=== PATIENT | male | born 1970 | race Caucasian/White ===

== ENCOUNTER → 2018-01-31 16:58 | Outpatient (CLI) | payer SELFPAY ==
[2018-01-31 18:06] LABS: Hemoglobin A1c 10.7 % (4.2-6.3)
== END ==
PROVIDERS: Family Provider Family Medicine; PCP Family Medicine; Visit Provider Family Medicine
DX: E11.9 Type 2 diabetes mellitus without complications (principal)
CPT/HCPCS: 36415; 83036

== ENCOUNTER 2018-12-02 17:00 | Outpatient (RCR) | payer OTHER, SELFPAY ==
[2018-07-17 09:45] VITALS: BMI 33.6
== END 2018-12-08 23:59 ==
LOC: DC 17:00
PROVIDERS: Family Provider Family Medicine; PCP Family Medicine; Visit Provider Family Medicine
DX: E11.9 Type 2 diabetes mellitus without complications (principal); Z71.3 Dietary counseling and surveillance
CPT/HCPCS: 97802; G0108

== ENCOUNTER 2018-12-24 17:30 | Outpatient (RCR) | payer OTHER, SELFPAY ==
[2018-07-17 09:45] VITALS: BMI 33.6
== END 2019-01-08 23:59 ==
LOC: DC 17:30
PROVIDERS: Family Provider Family Medicine; PCP Family Medicine; Visit Provider Family Medicine
DX: Z71.3 Dietary counseling and surveillance (principal); E11.9 Type 2 diabetes mellitus without complications
CPT/HCPCS: 97803

== ENCOUNTER 2019-02-27 08:19 | Outpatient (RCR) | payer OTHER, SELFPAY ==
[2018-07-17 09:45] VITALS: BMI 33.6
== END 2019-02-27 23:59 | disposition home or self-care (01) ==
LOC: DC 08:19
PROVIDERS: Family Provider Family Medicine; PCP Family Medicine; Visit Provider Family Medicine
DX: Z71.3 Dietary counseling and surveillance (principal); E11.9 Type 2 diabetes mellitus without complications
CPT/HCPCS: G0108

== ENCOUNTER → 2019-07-30 09:28 | Outpatient (CLI) | payer OTHER, SELFPAY ==
[2019-07-30 09:15] VITALS: BMI 33.6
[2019-07-30 13:15] LABS: ALB/GLOB Ratio 0.9 RATIO (0.9-2.4); AST(SGOT) 13 U/L (15-37); Alanine Aminotransfer ALT/SGPT 36 U/L (16-61); Albumin, Serum 3.5 g/dL (3.2-5.0); Alkaline Phosphatase 127 U/L (45-117); Anion Gap 10 (5-15); BUN 19 mg/dL (7-18); BUN/Creat Ratio 27.2 RATIO (10-20); Calcium,Total 8.5 mg/dL (8.5-10.1); Chloride 101 mmol/L (98-107); EST Glomerular Filtration Rate 127 mL/min (>60); Est Glom Filt Rate - Afr Amer 154 mL/min (>60); Globulin 3.8 g/dL (2.2-4.2); Glucose 287 mg/dL (74-106); Potassium 4.2 mmol/L (3.5-5.1); Protein, Total 7.3 g/dL (6.4-8.2); Sodium Level 134 mmol/L (136-145)
== END ==
PROVIDERS: PCP Family Medicine; Referring Provider Family Medicine; Visit Provider Family Medicine
DX: I10 Essential (primary) hypertension (principal)
CPT/HCPCS: 36415; 80053

== ENCOUNTER → 2021-04-27 15:09 | Outpatient (CLI) | payer OTHER, SELFPAY ==
[2021-04-27 17:30] LABS: ALB/GLOB Ratio 0.9 RATIO (0.9-2.4); AST(SGOT) 14 U/L (15-37); Alanine Aminotransfer ALT/SGPT 24 U/L (16-61); Albumin, Serum 3.6 g/dL (3.2-5.0); Alkaline Phosphatase 87 U/L (45-117); Anion Gap 8 (5-15); BUN 20 mg/dL (7-18); BUN/Creat Ratio 28.1 RATIO (10-20); Calcium,Total 9.2 mg/dL (8.5-10.1); Chloride 95 mmol/L (98-107); Creatinine, Serum 0.71 mg/dL (0.70-1.30); EST Glomerular Filtration Rate 123 mL/min (>60); Est Glom Filt Rate - Afr Amer 149 mL/min (>60); Globulin 4.1 g/dL (2.2-4.2); Glucose 241 mg/dL (74-106); Potassium 4.1 mmol/L (3.5-5.1); Protein, Total 7.7 g/dL (6.4-8.2); Sodium Level 127 mmol/L (136-145)
== END ==
PROVIDERS: PCP Family Medicine; Referring Provider Family Medicine; Visit Provider Family Medicine
DX: E11.9 Type 2 diabetes mellitus without complications (principal); I10 Essential (primary) hypertension
CPT/HCPCS: 36415; 80053

== ENCOUNTER → 2023-06-14 | Outpatient (CLI) | payer OTHER, SELFPAY ==
[2023-06-14 17:18] LABS: AST(SGOT) 14 U/L (15-37); Alanine Aminotransfer ALT/SGPT 34 U/L (16-61); Albumin, Serum 3.4 g/dL (3.2-5.0); Alkaline Phosphatase 76 U/L (45-117); Anion Gap 7 (5-15); BUN 21 mg/dL (7-18); BUN/Creat Ratio 38.3 RATIO (10-20); Chloride 103 mmol/L (98-107); Cholesterol 245 mg/dL (200); Creatinine, Serum 0.55 mg/dL (0.70-1.30); EST Glomerular Filtration Rate 165 mL/min (>60); Est Glom Filt Rate - Afr Amer 200 mL/min (>60); Globulin 3.3 g/dL (2.2-4.2); Glucose 215 mg/dL (74-106); High Density Lipoprotein 32 mg/dL; Protein, Total 6.7 g/dL (6.4-8.2); Sodium Level 136 mmol/L (136-145); Triglycerides 540 mg/dL
== END | disposition home or self-care (01) ==
LOC: BIMLAB 15:52
PROVIDERS: PCP Family Medicine; Referring Provider Family Medicine; Visit Provider Family Medicine
DX: I10 Essential (primary) hypertension (principal)
CPT/HCPCS: 36415; 80053; 80061

== ENCOUNTER 2024-09-30 21:24 | Inpatient (IN) | payer OTHER, SELFPAY ==
[2024-09-30 21:25] VITALS: BP 203/96; PULSE 95; RESP 18; TEMP 36.4; O2SAT 100; BMI 34.2
[2024-09-30] MEDS: Heparin Injection (Vial) 5,000 UNIT/ML VIAL 5000 UNIT IV (21:37)
[2024-09-30] MEDS: TICAGRELOR 90 MG TABLET 180 MG PO (21:38)
--- NOTE | 2024-09-30 21:41 | EKG12_ITS ---
Test Reason : Blood Pressure : */* mmHG Vent. Rate : 60 BPM Atrial Rate : 60 BPM P-R Int : 180 ms QRS Dur : 106 ms QT Int : 418 ms P-R-T Axes : 34 -46 49 degrees QTcB Int : 418 ms Poor data quality, interpretation may be adversely affected Normal sinus rhythm Left anterior fascicular block Minimal voltage criteria for LVH, may be normal variant ( Trimble product ) Inferior infarct , age undetermined Possible Anterior infarct , age undetermined Abnormal ECG When compared with ECG of 30-Sep-2024 21:33, MANUAL COMPARISON REQUIRED DATA IS UNCONFIRMED Confirmed by AYAD SEN, ELIZABET ([id number]), continuity editor RUBY LASSITER ([id number]) on 10/01/2024 2:06:30 PM Referred By: Malcolm Wray Confirmed By: ELIZABET LION MD
--- NOTE | 2024-09-30 21:42 | RAD_ITS ---
PROCEDURE: CHEST 1 VIEW (PORTABLE) 09/30/2024 REASON FOR EXAM: CHEST PAIN TECHNIQUE: Frontal view of the chest. FINDINGS: Hardware: None Heart: Cardiac and mediastinal contours are stable. Lungs: The lungs are clear. Bones: The bones are unremarkable. Other: RAD/Chest 1 View (Portable) IMPRESSION: No Acute Findings. Reading Location: [id number]
[2024-09-30 21:44] VITALS: O2SAT 2
--- NOTE | 2024-09-30 21:44 | ED.VIS.CHEST ---
HPI History of Present Illness Chief Complaint: Chest Pain Informant: patient and family Onset/Context/Timing Onset: Today and Hours Activity at onset: gradual Timing: Continuous Quality: Positive for Heaviness, Pain and Pressure Location: Substernal and Left Chest Current Severity: Moderate Maximum Severity: Moderate Worsened By: Nothing Relieved By: Nothing Associated Symptoms: Positive for Nausea, Diaphoresis and Dyspnea; Negative for Vomiting, Cough, Fever, Lightheadedness, Acid Reflux or Palpitations Narrative Narrative: 84-year-old male history of diabetes hypertension. No cardiac history. No prior cardiac catheterization. The last 2 days he has had some right arm pain. Today around 1:00 he got midsternal and left-sided chest pain. He became clammy. He had some mild nausea and mild shortness of breath. Did not come until tonight. He denies any recent exertional chest pain. Has had some recent mild exertional dyspnea. He is a non-smoker. He is on no blood thinners. He denies recent illness. Prior Similar Symptoms: No Recent Illness/Hospitalization: No CVD Risk Factors: Positive for Hypertension and Diabetes PE Risk Factors: Negative for Recent Travel/Surgery, Recent Immobilization, Prior DVT or PE, Cancer or OCP + Smoking + >/=35 TAD Risk Factors: Negative for Marfan's Syndrome [facility] Medical History (Updated 09/30/24 @ 23:[address] Malcolm Wray MD) Hypertension Diabetes Home Medications ?Medication ?Instructions ?Recorded ?Last Taken ?Type fosinopril 10 mg tablet 10 mg PO DAILY #90 tabs 04/08/24 Unknown Rx glimepiride 2 mg tablet 2 mg PO DAILY #90 tabs 04/08/24 Unknown Rx metformin 500 mg tablet See Rx Instructions .Route 04/08/24 Unknown Rx .COMPLEX #180 tabs pioglitazone 30 mg tablet 30 mg PO DAILY #90 tabs 04/08/24 Unknown Rx Allergy/AdvReac Type Severity Reaction Status Date / Time No Known Allergies Allergy Verified 09/30/24 21:25 Family History Mother Diabetes Father Heart disease Social History Smoking Status: Current every day smoker tobacco type: smokeless tobacco Smokeless tobacco user: chewing tobacco how long ago did patient quit smokin07/25/17 alcohol intake: current alcohol intake frequency: holidays/special occasions only Alcohol type: beer substance use type: does not use what type of physical activity do you participate in: walking frequency: 1-2 times per week ROS ROS ED ROS Narrative Chest pain today. Nausea and diaphoresis. No recent illness. Mild recent exertional dyspnea. Constitutional Constitutional ED: Denies chills or fever(s) Eyes Eyes: Reports none ENT ENT ED: Denies ear pain Cardiovascular Cardiovascular: Reports as per HPI and chest pain; Denies palpitations or racing heartbeat Respiratory/Chest Respiratory/Chest: Reports dyspnea Gastrointestinal Gastrointestinal: Reports nausea; Denies abdominal pain, constipation, diarrhea, melena or vomiting Genitourinary Genitourinary ED: Denies dysuria or hematuria Musculoskeletal Musculoskeletal: Denies arthralgias Integumentary Denies abscess Neurologic Neurologic: Denies headache(s) Psychiatric Psychiatric: Denies anxiety Endocrine Endocrinology: Denies cold intolerance Hematologic/Lymphatic Hematologic/Lymphatic: Denies easy bleeding, easy bruising or lymphadenopathy Allergic/Immunologic Allergic/Immunologic ED: Denies mouth swelling, tongue swelling or urticaria EXAM Physical Exam Narrative Exam Narrative: 84-year-old male sitting upright in bed. Initial blood pressure 2-3 of 96 pulse oximeter percent on room air. HEENT exam pupils round react to light. Moist mucous membranes. Neck nontender JVD. No lymphadenopathy. Lungs clear to auscultation bilaterally. Heart regular rate and rhythm rate about 95 no murmur. Chest wall nontender. Skin clammy. Abdomen soft, nondistended normal bowel sounds without peritoneal signs. Ventral hernia. Moving all 4 extremities. Nontender no edema. No cords. Neurologically is awake and alert no focal motor deficits. Answering questions following commands. Moving all 4 extremities. Back nontender. Exam is consistent with acute TN. As is his EKG. STEMI team was called. Const Vital Signs: 09/30/24 21:25 09/30/24 21:30 09/30/24 21:44 Temperature 97.6 F L Temperature Source Temporal Pulse Rate 95 Respiratory Rate 18 Respiratory Effort Normal Blood Pressure 203/96 H Blood Pressure Mean 131 Pulse Ox 100 2 Oxygen Delivery Method Room Air Nasal Cannula 09/30/24 21:51 09/30/24 21:57 Temperature 97.6 F L Temperature Source Pulse Rate 76 Respiratory Rate 20 H 19 H Respiratory Effort Blood Pressure 180/94 H 180/94 H Blood Pressure Mean 122 Pulse Ox 95 Oxygen Delivery Method Positive well nourished and well developed; Negative for cachectic, contractures or unkempt General Appearance ED: well developed and pallor; Negative for unkempt, cachectic, contractures or NAD Nutritional Appearance: Negative for cachectic HEENT Reports moist mucous membranes normocephalic and atraumatic Eyes PERRL and EOMs intact bilaterally General Eye ED: Yes pale conjunctiva Neck no lymphadenopathy and no JVD General: Negative for tenderness Chest Wall inspection of chest normal and palpation of chest normal Resp normal respiratory effort and clear to auscultation bilaterally Cardio regular rate, regular rhythm, S1 normal heart sound, S2 normal heart sound and no murmurs Peripheral Pulses: pulses 2+ throughout GI normal to inspection, nondistended, normoactive bowel sounds, soft to palpation, non-tender, non-distended and no masses Back/Spine no CVA tenderness and no thoracic nor lumbar tenderness Extremity normal to inspection General Extremety ED: Negative for edema, pulses abnormal or tenderness General Extremity: Negative for edema or pulses abnormal Neuro oriented x3, CN's II-XII intact bilaterally and no sensory deficits noted Sensorium / Orientation: awake, alert, oriented to person, oriented to place and oriented to time; Negative for confused, lethargic or stuporous Motor Exam: strength 5/5 throughout Psych mental status grossly normal Appearance: Negative for unkempt Attitude: No agitated Mood & Affect: Negative for depressed, anxious or tearful Skin no rashes or lesions noted and no wounds Skin Narrative: Diaphoretic General Skin Exam: pallor; Negative for jaundice Rashes: No rashes noted Trauma: Negative for abrasion or laceration Heart Score History: Highly Suspicious ECG: Significant ST-Depression (Significant ST elevation.) Age: >45 - <65 years Risk Factors: 1 or 2 Risk Factors Score: 6 MDM MDM MDM Narrative Medical decision making narrative: 54-year-old diabetic hypertensive male without any cardiac history. Presents with chest pain since 1:00 today it has been 8-1/2 hours of chest pain. He has an acute inferolateral TN with ST elevation in 2 3 aVF and V3 [address] depression in lead I. STEMI team was called immediately as she is I saw the EKG. He will be given a heparin bolus of 5000, Brilinta 180 p.o. and 4 baby aspirin. I have already spoken to the STEMI restaurant kitchen manager on-call Dr. Wray. Soon as the Pharmaceutical Sales Representative is ready the patient to be taken there. I have already informed him and the family of our diagnosis. Repeat exam patient is doing well at 10 PM. Pharmaceutical Sales Representative was ready and they took him down to the Pharmaceutical Sales Representative. He is awake alert and talking. His vital signs are stable. He is stating he is feeling improved. He was given Zofran for nausea I ordered the morphine but he did not want to take it at this time. He did receive aspirin p.o., Brilinta and IV heparin bolus. History & Record Review Discussion w/independent historian: Patient and Family Lab Data Attestation: I reviewed the patient's lab results. Lab results narrative: CBC shows a white count 13.6. H&H 15 and 42. Platelets 260. PT/INR of 12 and 0.9. PTT is 23. BMP showed a sodium 130. Gap 13. Normal BUN and creatinine of 14 and 1. Glucose elevated 342 he is diabetic. Troponin elevated at 23. Labs: Laboratory Results - last 24 hr 09/30/24 21:30 WBC 13.6 H RBC 4.87 Hgb 15.2 Hct 42.8 MCV 87.9 MCH 31.2 MCHC 35.5 RDW Std Deviation 38.4 RDW Coeff of Sue 11.9 Plt Count 260 MPV 9.3 Immature Gran % (Auto) 0.400 Neut % (Auto) 77.7 H Lymph % (Auto) 13.7 L [place] % (Auto) 7.8 Eos % (Auto) 0.1 Baso % (Auto) 0.3 Absolute Neuts (auto) 10.6 H Absolute Lymphs (auto) 1.86 Nucleated RBC % 0 PT 12.4 INR 0.9 APTT 23.4 L Sodium 130 L Potassium 4.6 Chloride 95 L Carbon Dioxide 21.8 Anion Gap 13 BUN 14 Creatinine 1.08 Estim Creat Clear Calc 86.65 Est GFR (MDRD) Non-Af 81 BUN/Creatinine Ratio 13.0 Glucose 342 H Calcium 9.2 Troponin T High Sens 23 H Radiography Chest X-Ray - ED: 1 View, Read by ED Physician, Heart, Lungs, Mediastinum, Bony Structures, No Acute Disease and Chronic Changes Diagnostic Testing: Clinical Impression(s) from Imaging Studies Chest X-Ray 09/30/24 21:42 IMPRESSION: No Acute Findings. Reading Location: [id number] Chest x-ray, portable, single view interpreted by myself shows normal cardiac silhouette. Normal mediastinum and aortic knob. Normal lung ram. Chronic changes. No acute process. Rhythm Strip Rhythm Strip: Sinus Rhythm Rate: 88 Ectopy: None EKG Initial EKG: Attestation: I personally reviewed and interpreted this EKG as follows: Interpretation: Sinus Rhythm, S-T Elevation and S-T Depression Comments: Acute inferolateral TN with ST elevation in 2 3 aVF and V4 through V6 with ST depression in lead I. Prior EKG tracings: not available for review Critical Care Time Critical Care Time: Yes Critical care time (excluding procedures): 30-74 minutes, Including time spent:, Discussing w/Patient &/or Family/Head Still Operator, Discussing w/Consultants, Arranging Admission or Transfer, Performing Direct Patient Care at Bedside and - (31 minutes while waiting the patient to go to Pharmaceutical Sales Representative.) Discharge Plan Dx/Rx/DC Orders Clinical Impression: Chest pain, Acute inferior myocardial infarction, History of diabetes mellitus, History of hypertension Disposition Disposition: [facility] Discharge Date/Time: 09/30/24 22:15
[2024-09-30] MEDS: Ondansetron 4 MG/2 ML Vial IV (21:46)
[2024-09-30] MEDS: Aspirin 81 MG TAB.CHEW 324 MG PO (21:46)
[2024-09-30 21:51] VITALS: BP 180/94; PULSE 66; RESP 20; O2SAT 98
[2024-09-30 21:54] LABS: Absolute Lymphocyte Count 1.86 X10^3/uL (0.83-4.51); Absolute Neutrophil Count 10.6 X10^3/uL (2.0-7.7); Basophil# 0.04 X10^3/uL; Basophil% 0.3 % (0-1); Eosinophil# 0.02 X10^3/uL; Eosinophils% 0.1 % (0-5); Hematocrit 42.8 % (40-54); Hemoglobin 15.2 g/dL (13.0-16.5); Lymphocyte # 1.86 X10^3/ul (0.83-4.51); Lymphocyte % 13.7 % (19-41); Mean Corp Hgb Conc 35.5 g/dL (32-36); Mean Corpuscular Hgb 31.2 pg (27.0-32.0); Mean Corpuscular Volume 87.9 fL (80-94); Mean Platelet Vol. 9.3 fl (6.2-12.0); Monocyte# 1.06 X10^3/uL; Monocyte% 7.8 % (0-10); NRBC Flagged by Analyzer 0 % (0-5); Neutrophil # 10.55 X10^3/uL (2.7-7.7); Neutrophil % 77.7 % (47-70); Platelet Count 260 K/mm3 (150-450); RBC Distribution Width CV 11.9 % (11.6-14.6); RBC Distribution Width SD 38.4 fl (35.1-43.9); Red Blood Count 4.87 M/mm3 (4.6-6.2); White Blood Count 13.6 K/mm3 (4.4-11.0)
--- NOTE | 2024-09-30 21:56 | PCM.HP.STD ---
HPI - General General Date of Admission: 09/30/24 Date of Service: 09/30/24 Chief Complaint: Chest Pain with Inferior STEMI. HPI Narrative RADHA NEWBERRY, is a 54 M with a past medical history of essential hypertension; on fosinopril, obesity; with BMI of 34.2 this admission, DM-2; of unknown control on metformin and glimepiride and history of smokeless tobacco abuse (quit smoking 2017) who presents to [facility] ER complaining of chest pain with code STEMI called en route. Mr. Newberry reports his symptoms began approximately 2 days prior to admission with intermittent Right arm pain and then earlier today around 1:00 PM he experienced the gradual-onset of progressively worsening chest pain that was midsternal, radiating to the Left-side, heavy, pressure-like, moderate and was made better or worse by nothing. He also admits to associated diaphoresis with shortness of breath and nausea with recent mild exertional dyspnea so he finally decided to come in this evening for further evaluation and treatment after ~8.5 hours of chest pain and other worsening symptoms. He denies similar previous episodes or any known history of CAD. In the ER he was confirmed to have Inferior Wall ST elevation IN with configuration engineer emergently called for C with an initial blood pressure of 203/96 mmHg present on admission. He was emergently treated with IV heparin (bolus and drip), Brilinta 180 mg orally once in 4 BASA with STEPHANIA to RCA placed by Dr. Wray of [facility] whose help is greatly appreciated. He was then admitted to the ICU for ongoing care for stay that is expected to extend beyond 2 midnights. [facility] Medical History (Updated 10/01/24 @ 05:[address] Polo Abbott, DO) Hypertension Diabetes Home Medications ?Medication ?Instructions ?Recorded ?Last Taken ?Type fosinopril 10 mg tablet 10 mg PO DAILY #90 tabs 04/08/24 Unknown Rx glimepiride 2 mg tablet 2 mg PO DAILY #90 tabs 04/08/24 Unknown Rx metformin 500 mg tablet See Rx Instructions .Route 04/08/24 Unknown Rx .COMPLEX #180 tabs pioglitazone 30 mg tablet 30 mg PO DAILY #90 tabs 04/08/24 Unknown Rx Allergy/AdvReac Type Severity Reaction Status Date / Time No Known Allergies Allergy Verified 04/22/25 21:25 Family History Mother Diabetes Father Heart disease Social History Smoking Status: Former smoker Smokeless tobacco user: chewing tobacco how long ago did patient quit smokin07/25/17 alcohol intake: current alcohol intake frequency: holidays/special occasions only Alcohol type: beer substance use type: does not use what type of physical activity do you participate in: walking frequency: 1-2 times per week ROS ROS Narrative Review of Systems: Constitutional: Patient denies fever or chills. Eyes: Patient denies change in vision or discharge from eyes. ENT: Patient denies runny nose, sore throat or ear pain. Resp: Patient admits to recent mild dyspnea on exertion progressing dyspnea at rest with ACS. CV: Patient admits to chest pain as noted in HPI but he denies palpitations, heart racing or lower extremity edema. GI: Patient admits to nausea but he denies vomiting, diarrhea, constipation or abdominal pain. : Patient denies dysuria, hematuria or urinary frequency. MSK: Patient denies arthralgias or myalgias. Skin: Patient denies rash, abscess, wounds or jaundice. Psych: Patient denies symptoms of uncontrolled depression or anxiety. Neuro: Patient denies headache, paresthesias or focal neurologic deficits. Allergy: Patient denies lip swelling, tongue swelling or urticaria. Hematology: Patient denies easy bleeding or easy bruisability. Endocrinology: Patient denies polyuria, polydipsia, polyphagia or heat/cold intolerance. 14 point ROS otherwise negative except for positives noted above in HPI. Vital Signs Vital Signs Vital Signs: 09/30/24 21:25 09/30/24 21:30 09/30/24 21:44 Temperature 97.6 F L Temperature Source Temporal Pulse Rate 95 Respiratory Rate 18 Respiratory Effort Normal Blood Pressure 203/96 H Blood Pressure Mean 131 Pulse Ox 100 2 Oxygen Delivery Method Room Air Nasal Cannula 09/30/24 21:51 Temperature Temperature Source Pulse Rate Respiratory Rate 20 H Respiratory Effort Blood Pressure 180/94 H Blood Pressure Mean Pulse Ox Oxygen Delivery Method Weight Weight: 218 lb 4.8 oz Body Mass Index (BMI) 34.2 Physical Exam Const alert and oriented x3 Constitutional Narrative: Obese with patient noted to be clammy and in mild distress. General Appearance: cooperative HEENT normocephalic, head/scalp atraumatic, hearing grossly normal bilaterally and moist oral mucous membranes Eyes PERRL, EOMs intact bilaterally and conjunctivae normal Neck no lymphadenopathy, supple and no JVD Resp normal respiratory effort, no retractions, no use of accessory muscles and clear to auscultation bilaterally Cardio regular rate and regular rhythm GI normal to inspection, nondistended, normoactive bowel sounds, soft to palpation, non-tender and non-distended GI Narrative: Obese. Extremity normal to inspection, full ROM and no clubbing, cyanosis or edema Skin Skin Narrative: Patient has no evidence of rash, abscess, wounds or jaundice. Neuro oriented x3, CN's II-XII intact bilaterally, moves all extremities and no focal motor deficits Sensorium / Orientation: awake, alert, oriented to person, oriented to place and oriented to time Speech: speech normal Psych affect normal Results Medical Records Data Attestation: I reviewed the patient's medical records Lab / Micro Data Attestation: I reviewed the patient's lab results. 09/30/24 21:30 09/30/24 21:30 Labs: Laboratory Results - last 24 hr 09/30/24 21:30: WBC 13.6 H, RBC 4.87, Hgb 15.2, Hct 42.8, MCV 87.9, MCH 31.2, MCHC 35.5, RDW Std Deviation 38.4, RDW Coeff of Sue 11.9, Plt Count 260, MPV 9.3, Immature Gran % (Auto) 0.400, Neut % (Auto) 77.7 H, Lymph % (Auto) 13.7 L, [place] % (Auto) 7.8, Eos % (Auto) 0.1, Baso % (Auto) 0.3, Absolute Neuts (auto) 10.6 H, Absolute Lymphs (auto) 1.86, Nucleated RBC % 0 Rhythm Strip Rhythm Strip: Sinus Rhythm Rate: 88 Ectopy: None Assessment & Plan Assessment/Plan (1) Acute inferior myocardial infarction: (2) Essential hypertension: (3) Obesity (BMI 30.0-34.9): (4) Diabetes mellitus, type 2: QUALIFIERS: Diabetes mellitus terminal operations manager insulin use: without terminal operations manager use Diabetes mellitus complication status: with circulatory complication Diabetes mellitus complication detail: with other circulatory complications Qualified Code(s): E11.59 - Type 2 diabetes mellitus with other circulatory complications (5) Tobacco abuse: PLAN: Plan 1. Inferior Wall ST elevation IN; s/p RCA stent placed and emergent LHC - Admit to ICU. Continue current medications as recommended by cardiology. Give acetaminophen as needed for [id number] (level 1-5/10) pain or fever. Give morphine IV as needed for severe (level 6-10/10) pain. Finally, patient was sternly warned not to wait for prolonged a period of time before seeking medical attention in case his symptoms recur. 2. Essential Hypertension; on fosinopril complicating #1 - Patient will be maintained on regimen recommended by configuration engineer with carvedilol 3.125 mg p.o. twice daily plus Zestril 5 mg p.o. daily in addition to spironolactone 12.5 mg daily. 3. Obesity; with BMI of 34.2 this admission adding to the burden of disease outlined #1 & #2 - Weight loss was recommended. Check TSH. This complicates his case and may hamper recovery. 4. DM-2; of unknown control on metformin and glimepiride adding to the medical complexity of #1 - #3 - ADA/cardiac diet. FSBS q. AC/HS plus [id number] sliding scale insulin. Check hemoglobin A1c to objectively evaluate quality of diabetic control. 5. History of smokeless tobacco abuse (quit smoking 2017) - Tobacco Cessation will be strongly encouraged. 6. DVT prophylaxis - Patient was treated with IV heparin. We will place SCD's. Alternative agent will need to started at in the a.m. Total time: Approximately (but not less than) 75 minutes. Charges/Coding Visit Charges Inpatient E&M: 82452 Init Hosp L3
[2024-09-30 21:57] VITALS: BP 180/94; PULSE 76; RESP 19; TEMP 36.4; O2SAT 95
[2024-09-30 22:00] LABS: International Normalized Ratio 0.9; Prothrombin Time (Protime)PT. 12.4 SECONDS (11.7-14.9)
[2024-09-30 22:01] LABS: Partial Thromboplast Time 23.4 Seconds (24.1-36.2)
[2024-09-30 22:18] LABS: Anion Gap 13 (5-15); BUN 14 mg/dL (4-19); Calcium,Total 9.2 mg/dL (7.6-11.0); Carbon Dioxide 21.8 mmol/L (21.0-32.0); Chloride 95 mmol/L (98-108); Creatinine, Serum 1.08 mg/dL (0.70-1.20); EST Glomerular Filtration Rate 81 (>60); Estimated Creatinine Clearance 86.65 ml/min (50-250); Glucose 342 mg/dL (70-99); Potassium 4.6 mmol/L (3.3-5.1); Sodium Level 130 mmol/L (133-145); Troponin T High Sensitivity 23 ng/L (<=22)
--- NOTE | 2024-09-30 22:21 | CM.ED ---
Social work Reason for referral: STEMI alert This SW responded to STEMI alert called and provided support patient's son, Wilmer, and Wilmer's girlfriend. Patient was actively having a heart attack and was prepared for the central lab technician while SW supported family in the hallway. Active listening and supportive presence provided. Prior to going to the central lab technician, patient refused morphine for pain and patient asked nursing if patient was going to work tomorrow; nursing reminded patient that patient was having a heart attack and would not be going to work tomorrow. Patient expressed understanding. Plan: admission to acute; RNCM/SW team to help with discharge planning needs that may arise. Noemi Cantu, PUPIL PERSONNEL SERVICES DIRECTOR, BEHAVIORAL HEALTH RN
--- NOTE | 2024-09-30 23:02 | PCM.CONS.C ---
Assessment & Plan Assessment/Plan (1) Acute inferior myocardial infarction: PLAN: Patient was taken emergently to the cardiac catheterization lab. Coronary angiography revealed total occlusion of the proximal right coronary artery. Successful revascularization was performed with aspiration thrombectomy, balloon angioplasty and placement of a drug-eluting stent. Excellent results were noted. Continue aspirin lifelong. Clopidogrel for at least 6 months. (2) Coronary artery disease: PLAN: See #1 above. Continue aspirin and clopidogrel. Patient is also noted to have chronic total occlusion of his obtuse marginal branch that is filling retrogradely via home collaterals. For medical treatment. Beta-blockers. Risk factor modification. Statins. (3) Left ventricular systolic dysfunction (LVSD): PLAN: LVEF approximately 40% with posterior hypokinesis secondary to #1 above. Beta-blockers. ACEI. SGLT2 inhibitors. Check echocardiogram. (4) Hypertension: QUALIFIERS: Hypertension type: essential hypertension Qualified Code(s): I10 - Essential (primary) hypertension PLAN: ACEI and beta-blockers. (5) Diabetes: QUALIFIERS: Diabetes mellitus type: type 2 Diabetes mellitus retirement insulin use: without intermodal dispatcher use PLAN: As per internal medicine. HPI Consult Data Date of Consult: 09/30/24 HPI Narrative Reason for Consultation: Inferior STEMI HPI Narrative: 54-year-old gentleman with past medical history significant for hypertension and diabetes mellitus. He presented to the emergency room with complaints of acute onset chest pain that started about 9 hours prior to presentation. He described mild shortness of breath with it along with some nausea. In the emergency room, an ECG was done. It showed changes consistent with acute inferior lateral myocardial infarction. Subsequently a STEMI alert was called. Denies any prior history of heart disease. [facility] Medical History (Updated 09/30/24 @ 23:[address] Malcolm Wray MD) Hypertension Diabetes Home Medications ?Medication ?Instructions ?Recorded ?Last Taken ?Type fosinopril 10 mg tablet 10 mg PO DAILY #90 tabs 04/08/24 Unknown Rx glimepiride 2 mg tablet 2 mg PO DAILY #90 tabs 04/08/24 Unknown Rx metformin 500 mg tablet See Rx Instructions .Route 04/08/24 Unknown Rx .COMPLEX #180 tabs pioglitazone 30 mg tablet 30 mg PO DAILY #90 tabs 04/08/24 Unknown Rx Allergy/AdvReac Type Severity Reaction Status Date / Time No Known Allergies Allergy Verified 09/30/24 21:25 Family History Mother Diabetes Father Heart disease Social History Smoking Status: Current every day smoker tobacco type: smokeless tobacco Smokeless tobacco user: chewing tobacco how long ago did patient quit smokin07/25/17 alcohol intake: current alcohol intake frequency: holidays/special occasions only Alcohol type: beer substance use type: does not use what type of physical activity do you participate in: walking frequency: 1-2 times per week Physical Exam Narrative Mildly anxious. Heart sounds 1 and 2 noted. Chest clear to auscultation bilaterally. Alert oriented x 3. Trace bilateral ankle edema noted. Risk Stratification Risk Stratification Applicable: No Objective Data Vital Signs: Vital Signs Temp Pulse Resp BP Pulse Ox O2 Del Method 97.6 F L 76 19 H 180/94 H 95 Nasal Cannula 09/30/24 21:57 09/30/24 21:57 09/30/24 21:57 09/30/24 21:57 09/30/24 21:57 09/30/24 21:44 Oxygen Delivery Method Nasal Cannula Weight: 218 lb 4.8 oz Body Mass Index (BMI) 34.2 Lab / Micro Data 09/30/24 21:30 09/30/24 21:30 Labs: Laboratory Results - last 24 hr 09/30/24 21:30: WBC 13.6 H, RBC 4.87, Hgb 15.2, Hct 42.8, MCV 87.9, MCH 31.2, MCHC 35.5, RDW Std Deviation 38.4, RDW Coeff of Sue 11.9, Plt Count 260, MPV 9.3, Immature Gran % (Auto) 0.400, Neut % (Auto) 77.7 H, Lymph % (Auto) 13.7 L, [place] % (Auto) 7.8, Eos % (Auto) 0.1, Baso % (Auto) 0.3, Absolute Neuts (auto) 10.6 H, Absolute Lymphs (auto) 1.86, Nucleated RBC % 0, PT 12.4, INR 0.9, APTT 23.4 L, Sodium 130 L, Potassium 4.6, Chloride 95 L, Carbon Dioxide 21.8, Anion Gap 13, BUN 14, Creatinine 1.08, Estim Creat Clear Calc 86.65, Est GFR (MDRD) Non-Af 81, BUN/Creatinine Ratio 13.0, Glucose 342 H, Calcium 9.2, Troponin T High Sens 23 H Rhythm Strip Rhythm Strip: Sinus Rhythm Rate: 88 Ectopy: None Cardiology Labs/Tests 09/30/24 21:30: WBC 13.6 H, RBC 4.87, Hgb 15.2, Hct 42.8, MCV 87.9, MCH 31.2, MCHC 35.5, Plt Count 260, MPV 9.3, Immature Gran % (Auto) 0.400, Neut % (Auto) 77.7 H, Lymph % (Auto) 13.7 L, [place] % (Auto) 7.8, Eos % (Auto) 0.1, Baso % (Auto) 0.3, Absolute Neuts (auto) 10.6 H, Nucleated RBC % 0, PT 12.4, INR 0.9, APTT 23.4 L, Sodium 130 L, Potassium 4.6, Chloride 95 L, Carbon Dioxide 21.8, Anion Gap 13, BUN 14, Creatinine 1.08, Est GFR (MDRD) Non-Af 81, BUN/Creatinine Ratio 13.0, Glucose 342 H, Calcium 9.2 Rhythm: EKG: Sinus rhythm with ST changes consistent with acute inferior myocardial infarction ECHO: Stress Test: Cardiac Cath: PCI: CT Surgery: Holter monitor: EPS: PPM: CXR: Chest CT Scan: Radiography Diagnostic Testing: Radiology Impression Chest X-Ray 09/30/24 21:42 IMPRESSION: No Acute Findings. Reading Location: [id number]
--- NOTE | 2024-09-30 23:09 | ECHOCS_ITS ---
Reason For Study Reason For Study: Chest Pain Procedure This was a 2D Doppler, Color Flow transthoracic echocardiogram. The study was technically difficult. Contrast injection was performed. Exam performed portable in ICU/CCU. Left Ventricle Normal size and thickness. Mild inferior hypokinesis. Overall LVEF estimated at 60%. Stage I diastolic dysfunction. Right Ventricle Normal right ventricle. Atria The left and right atria are normal. Mitral Valve Trivial mitral valve insufficiency. Tricuspid Valve Mild tricuspid valve insufficiency. Right ventricular systolic pressure estimated to be 38 mmHg. Aortic Valve Trisinus/trileaflet aortic valve. Pulmonic Valve The pulmonic valve is not well visualized. Great Vessels Normal sized aortic root. Pericardium/Pleural No pericardial effusion. Medication Diluted definity 1ml given slow IV push to enhance endocardial definition. MMode/2D Measurements & Calculations LVIDd: 4.7 cm IVSd: 0.99 cm Ao root diam: 3.0 cm LVIDs: 3.0 cm LVPWd: 1.0 cm RVDd: 3.8 cm FS: 37.6 % LAV(MOD-bp): 49.3 ml LVAd ap4: 34.3 cm2 SV(MOD-sp4): 64.7 ml LAV(MOD-bp) Indexed: 23.8 ml/m2 LVLd ap4: 8.9 cm SI(MOD-sp4): 31.2 ml/m2 LAV(MOD-sp2): 44.9 ml EDV(MOD-sp4): 108.1 ml LAV(MOD-sp4): 52.6 ml EDV(sp4-el): 112.1 ml LVAs ap4: 19.3 cm2 LVLs ap4: 6.9 cm ESV(MOD-sp4): 43.4 ml ESV(sp4-el): 45.5 ml EF(MOD-sp4): 59.8 % EF(sp4-el): 59.4 % SV(sp4-el): 66.5 ml LA A4 area: 18.9 cm2 LA dimension(2D): 3.8 cm RA A4 area: 16.6 cm2 TAPSE: 1.5 cm Time Measurements MV dec time: 0.17 sec Doppler Measurements & Calculations MV E max chan: 89.0 cm/sec Lat Peak E' Chan: 8.3 cm/sec Med Peak E' Chan: 8.1 cm/sec MV A max chan: 94.9 cm/sec E/E' lat: 10.7 E/E' med: 11.0 MV E/A: 0.94 MV V2 max: 124.2 cm/sec MV P1/2t max chan: 128.6 cm/sec Ao V2 max: 172.4 cm/sec MV max P.2 mmHg MV P1/2t: 70.9 msec Ao max P.9 mmHg MV V2 mean: 59.6 cm/sec MV dec slope: 531.3 cm/sec2 Ao V2 mean: 117.5 cm/sec MV mean P.8 mmHg MVA(P1/2t): 3.1 cm2 Ao mean P.4 mmHg MV V2 VTI: 40.3 cm Ao V2 VTI: 36.2 cm AV (velocity ratio): 0.86 LV V1 max: 143.9 cm/sec PA V2 max: 92.4 cm/sec TR max chan: 239.8 cm/sec LV V1 max P.3 mmHg PA V2 mean: 70.5 cm/sec TR max P.0 mmHg LV V1 mean P.5 mmHg LV V1 mean: 98.3 cm/sec LV V1 VTI: 31.1 cm ECHO/Echo Complete W/ Contrast Interpretation Summary Mild inferior hypokinesis. Overall LVEF estimated at 60%. Stage I diastolic dys function Right ventricular systolic pressure estimated to be 38 mmHg. Ordering Physician: Malcolm Wray Referring Physician: Malcolm Wray Performed By: Jean-Paul Ibrahim RCS
[2024-09-30 23:29] LABS: ACT Activated Clotting Time 187 sec (74-137)
[2024-09-30 23:29] LABS: ACT Activated Clotting Time 256 sec (74-137)
--- NOTE | 2024-09-30 23:34 | CL.I_ITS ---
Patient Name: RADHA LY Study Date: 09/30/2024 Performing: Malcolm Wray MD Ht: 67 inches 170.18 cm : 1970 Wt: 218.6 lbs 99.02 kg Age: 54 Gender: male BSA: 2.1 PROCEDURE(S) PERFORMED DC01-(55303)LHC/COR/LV IC16-(35690/[id number])AMI, STEPHANIA OR PTCA, ARTERY/GRAFT, SINGLE VESSEL CLINICAL PROFILE AND CO-MORBIDITIES Indications: ACS <= 24 hrs Heart Failure: None CAD Presentations: STEMI. Symptom onset Date/Time: 09/30/2024 12:00:00 Time Estimated CONCLUSIONS 100% Prox RCA SPRAY GUN OPERATOR Om1, filling retrogradely via collaterals 40% Prox LAD, 60% Prox D1 LVEF 45% 3.0x34 mm RECOMMENDATIONS ASA Indefinitley P2Y12 inhibitors for atleast 6 months DESCRIPTION OF PROCEDURE The patient arrived to the procedure lab. The risks and benefits of the procedure as well as a full description of our services here and lack of surgical backup were fully explained to the patient and/or their significant other prior to the catheterization. The Timeout was completed, verifying the correct patient and procedure. The patient's procedural site was prepped and draped in the usual fashion. Local anesthetic was given subcutaneously to right radial region with Lidocaine 2%. Using a modified Seldinger technique, arterial access was obtained via the right radial artery, a 6Fr sheath was inserted.. Left Coronary Artery selective angiography was performed in multiple views using a 5 Fr. 4.0 Troy catheter. Right Coronary Artery selective angiography was then performed in multiple views using a 5 Fr. 4.0 Troy catheter. Left Ventriculography was performed in DUARTE projection using a 5 Fr. Pigtail catheter. LV to AO pullback pressures were then recorded jr 4 Guide catheter was inserted and engaged into the RCA. runthrough Guide wire was advanced to the RCA. Balloon catheter was advanced across lesion in the right coronary, proximal. PTCA balloon inflated at 6 atms for 13 secs. fernando 3.0 x 34 Drug Eluting stent was advanced across the lesion in the right coronary, mid. Angiogram performed post stent deployment. nc emerge 3.0 x 30 Balloon catheter was inserted post stent. Angiogram performed post balloon dilatation. CORONARY ANGIOGRAPHY DOMINANCE: Right Dominant LEFT HEART ASSESSMENT Left Ventricular Ejection Fraction: by LV Gram 45 % LVEDP: 31 mmHg Aortic Valve Mean Gradient: [id number] LEFT MAIN: Angiographically normal LEFT ANTERIOR DESCENDING ARTERY: LAD: Tubular 40% Proximal lesion in LAD DIAGONAL 1: Tubular 60% Ostial lesion in DIAG1 OM 1: Diffuse 100% Ostial lesion in MARG1 OM 2: Diffuse 100% Ostial lesion in MARG1 RIGHT CORONARY ARTERY: RCA: Thrombus 100% Proximal lesion in RCA COLLATERAL FLOW: Collateral flow from DIAG1 to MARG1 INTERVENTION INFORMATION LESION SITE: RCA (Mid) Lesion Complexity: High/C, thrombus present: Yes, lesion length: 32 mm, culprit lesion: Yes, In-stent restenosis: No, chronic total occlusion: No Pre Stenosis: 100% % Pre intervention PARISH flow: 0 PROCEDURE: Drug Eluting Stent with pre and post dilatation, Thrombectomy Post Stenosis: 0% % Post intervention PARISH flow: 3 Lesion Devices: Terumo .014 180cm Runthrough Extra Floppy straight Cordis 6 Fr JR4 100cm Guide Catheter Sumit Sci EMERGE MR 2.50x12 BALLOON Penumbra Penumbra engine canister Penumbra Indigo Penumbra CAT Rx 140cm large lumen Medtronic 3.0 x 34 FERNANDO FRONTIER STEPHANIA Sumit Sci NC EMERGE MR 3.00x30 BALLOON COMPLICATIONS No Complications PROCEDURE MEDICATIONS Fentanyl 50 mcg IV Fentanyl 50 mcg IV Oxygen: 2 L/min via nasal cannula Atropine 1mg/10ml .5 amp @ 09/30/2024 22:33:14 Heparin 7000 unit(s) IV 09/30/2024 22:24:32 Heparin 6000 unit(s) IV 09/30/2024 23:05:31 Lasix 40 mg IV 09/30/2024 23:17:56 Nitro 200 mcg IC 09/30/2024 22:41:25 Verapamil 2.5mg, Ntg 200mcgs, given IA 09/30/2024 22:20:35 SUMMARY OF HEMODYNAMIC DATA Time AIR REST ECG 22:16:50 AO 99/67 (78) SA 22:30:28 LV 127/17, 31 22:55:45 LV 124/21, 31 22:55:54 LV 136/38, 44 22:56:36 LVp 136/29, 39 22:56:42 AOp 133/85 (106) 22:56:49 Valve Area (c P-P/ms Time AIR REST Aortic 0.00 29.4 mn/180 ms 3.0 pk/180 ms 22:56:42 Signed By Malcolm Wray MD On 09/30/2024 23:33:37 Malcolm Wray MD
[2024-09-30 23:45] VITALS: BP 104/72; PULSE 65; RESP 16; O2SAT 94
[2024-09-30 23:48] VITALS: BP 104/72; PULSE 64; RESP 16; TEMP 36.3; O2SAT 97; BMI 33.3
[2024-10-01] VITALS (26 sets, daily range): BP systolic 96–138; BP diastolic 48–84; PULSE 57–92; RESP 10–19; TEMP 35.9–36.6; O2SAT 93–99; BMI 33.3
[2024-10-01] MEDS: 0.9% Normal Saline (1000mL) 1,000 ML 100 ML IV (00:42)
[2024-10-01] MEDS: Atorvastatin Calcium 40 MG Tablet PO ×2 (00:43→20:50)
[2024-10-01 01:28] LABS: Troponin T High Sens 2 HR 1270 ng/L (<=22)
[2024-10-01] MEDS: Clopidogrel Bisulfate 300 MG Tablet PO (05:09)
[2024-10-01 05:16] LABS: Hematocrit 37.5 % (40-54); Hemoglobin 13.3 g/dL (13.0-16.5); Mean Corp Hgb Conc 35.5 g/dL (32-36); Mean Corpuscular Hgb 31.7 pg (27.0-32.0); Mean Corpuscular Volume 89.5 fL (80-94); Mean Platelet Vol. 9.7 fl (6.2-12.0); Platelet Count 252 K/mm3 (150-450); RBC Distribution Width CV 12.2 % (11.6-14.6); RBC Distribution Width SD 39.9 fl (35.1-43.9); Red Blood Count 4.19 M/mm3 (4.6-6.2)
[2024-10-01 05:43] LABS: ALB/GLOB Ratio 1.5 RATIO (0.9-2.4); AST(SGOT) 87 U/L (<=37); Alanine Aminotransfer ALT/SGPT 27 U/L (<=46); Albumin, Serum 3.9 g/dL (3.5-5.0); Alkaline Phosphatase 74 U/L (40-129); Anion Gap 14 (5-15); BUN 19 mg/dL (4-19); BUN/Creat Ratio 21.9 RATIO (10-20); Calcium,Total 8.7 mg/dL (7.6-11.0); Carbon Dioxide 21.9 mmol/L (21.0-32.0); Chloride 96 mmol/L (98-108); Creatinine, Serum 0.88 mg/dL (0.70-1.20); EST Glomerular Filtration Rate 102 (>60); Estimated Creatinine Clearance 104.93 ml/min (50-250); Globulin 2.6 g/dL (2.2-4.2); Glucose 333 mg/dL (70-99); Potassium 4.5 mmol/L (3.3-5.1); Protein, Total 6.5 g/dL (5.9-8.4); Sodium Level 131 mmol/L (133-145); Total Bilirubin 0.38 mg/dL (0.00-1.30)
[2024-10-01 05:51] LABS: Troponin T High Sens 4 HR 1494 ng/L (<=22)
[2024-10-01 07:56] LABS: ACT Activated Clotting Time 153 sec (74-137)
--- NOTE | 2024-10-01 08:00 | ECQM.STEMI ---
STEMI STEMI ED Door Time / Other REG STEMI EKG Time (1) ST elevation (STEMI) myocardial infarction involving right coronary artery: Acute 09/30/24 21:24 Balloon/Aspiration Date-Time Date of Balloon/Aspiration:: 09/30/24 Time of Balloon/Aspiration:: 22:29
--- NOTE | 2024-10-01 08:01 | CRPHASE1 ---
Patient Communication Patient Information PHII Cardiac Rehab Discussed with Patient:: Yes Guide to Cardiac Rehab Given to Patient:: Yes Communication to Cardiac Rehab Choice Program [facility] CR PHII:: Communication Given to CR Wire Wrapping Machine Operator:: Malcolm Wray Phase II Cardiac Rehab:: Yes Sessions:: 36 sessions - 3 days/wk, 12 weeks Cardiac Rehabilitation Info Program Information Cardiac Rehabilitation Program Information: Cardiac Rehab The cardiac rehab team at [facility] consists of highly skilled exercise physiologists, nurses, respiratory therapists and physicians working together with you. Our purpose is to help you have a full recovery and achieve the goals you set for yourself. Over the years many of our patients have returned to activities they assumed they would never do again! We can help restore your confidence and motivation to make lifestyle changes that can have a significant impact on your health and quality of life! We can help answer questions and concerns you may have about exercise, lifestyle, medications, diet, stress and anxiety which are common following a hospitalization. WE monitor ECG and vital signs during exercise and discuss your progress with you and report to your physician(s). Cardiac Rehab is proven to help reduce readmissions, improve functional capacity and lower recurrence of problems with your heart. Our Cardiac Rehab program is Certified by the [employer] [employer] Pulmonary [employer] (AACVPR) and Accredited by the [employer] through our [facility]. You can contact us at . We invite you to call us with your questions or to get started in our program. If you have other questions or concerns be sure to ask your physician/provider during your follow-up visit. WE look forward to seeing you!
--- NOTE | 2024-10-01 08:02 | CRPH1.INSTRU ---
General Education Discussed with Patient CAD and cardiac anatomy and function:: Patient communicates acknowledgment Explanation of diagnoses and procedures:: Patient communicates acknowledgment Sign/Symptoms of [place]:: Patient communicates acknowledgment Antiplatelet therapy: Patient communicates acknowledgment Proper use of NTG-SL: Patient communicates acknowledgment Emergency procedures and activation of EMS: Patient communicates acknowledgment Compliance of all prescribed medications: Patient communicates acknowledgment Smoking Risk Factors Patient Nicotine/Smoking Risk Factors Are:: Non-smoker Recommendations Recommendations Include:: Previous smoker; encourage continued cessation Response Code Nicotine/Smoking Response Code:: Patient communicates acknowledgment Dyslipidemia Risk Factors Patient Dyslipidemia Risk Factors Are:: Total Cholesterol, Triglycerides, HDL and LDL Recommendations Recommendations Include:: Lipid profile not available, Reviewed NCEP/ATP guidelines and Therapeutic Lifestyle Change dietary guidelines Response Code Dyslipidemia Response Code:: Patient communicates acknowledgment Overweight/Obesity Risk Factors Patient Overweight/Obesity Risk Factors Are:: Obesity - > or = 30 Recommendations Recommendations Include:: Weight loss of 5-10%, Reduced calorie diet and Exercise 5-7 times/week Response Code Overweight/Obesity:: Patient communicates acknowledgment Hypertension Recommendations Recommendations Include:: BP <130/80 if diabetic, DASH dietary guidelines, Decrease/maintain normal body weight and Moderation of ETOH Response Code Hypertension:: Patient communicates acknowledgment Heart Disease Risk Factors Patient Heart Disease Risk Factors Are:: Family history of heart disease < 65 years old Recommendations Recommendations Include:: Educated family members of their risk and Educated family members of importance of prevention of heart disease Response Code Heart Disease Response Code:: Patient communicates acknowledgment Diabetes Risk Factors Patient Diabetes Risk Factors Are:: Elevated blood sugars Recommendations Recommendations Include:: Maintain fasting blood sugars 70-110 md/dL, Maintain HgbA1c of 6% or less, Monitor blood sugar as prescribed, Diabetic dietary guidelines and Decrease/maintain body weight Metabolic Syndrome Risk Factors Patient Metabolic Syndrome Risk Factors Are [3 of 5]:: Fasting blood sugar > 100 mg/dL, Waist circumference > 35 [female] or 40 [male], High triglyceride >150, Hypertension and Low HDL <40 [male] or < 50 [female] Recommendations Recommendations Include:: Reinforce compliance to risk factor modifications, Patient is diabetic and Encouraged follow-up with Primary Care Physician Response Code Metabolic Syndrome Response Code:: Patient communicates acknowledgment Sedentary Risk Factors Patient Sedentary Risk Factors Are:: Lack of regular exercise Recommendations Recommendations Include:: Aerobic exercise 5-7 times/week for 20-30 minutes continuously, Benefits of regular exercise, Discussed home walking program and Monitored Outpatient Cardiac Rehab Response Code Sedentary Response Code:: Patient communicates acknowledgment Stress Recommendations Recommendations Include:: Identification of stressors, and assessment of coping skills and Stress management techniques Response Code Stress Response Code:: Patient communicates acknowledgment
[2024-10-01] MEDS: Aspirin E.C. 81 MG Tablet PO (08:09)
[2024-10-01] MEDS: Clopidogrel Bisulfate 75 MG Tablet PO (08:09)
[2024-10-01] MEDS: Spironolactone 25 MG Tablet 12.5 MG PO (08:10)
[2024-10-01] MEDS: Lisinopril 5 MG Tablet PO (08:11)
--- NOTE | 2024-10-01 08:20 | PCM.PN.CARD ---
Subjective Subjective Patient seen and evaluated. Doing well this morning. No chest pain. Objective Data Vital Signs: Vital Signs Temp Pulse Resp BP Pulse Ox O2 Del Method 97.9 F 58 L 16 104/70 95 Room Air 10/01/24 02:00 10/01/24 07:00 10/01/24 07:00 10/01/24 07:00 10/01/24 07:00 10/01/24 07:00 Oxygen Delivery Method Room Air Weight: 212 lb 8 oz Body Mass Index (BMI) 33.3 Intake & Output: Intake and Output for Last 24 Hours 09/29/24 09/30/24 10/01/24 23:59 23:59 23:59 Intake Total 300 / 300 Output Total 1500 / 1500 Balance -1200 / -1200 Lab / Micro Data 10/01/24 05:00 10/01/24 05:00 Labs: Laboratory Results - last 24 hr 09/30/24 21:21: Activated Clotting Time 153 H 09/30/24 21:30: WBC 13.6 H, RBC 4.87, Hgb 15.2, Hct 42.8, MCV 87.9, MCH 31.2, MCHC 35.5, RDW Std Deviation 38.4, RDW Coeff of Sue 11.9, Plt Count 260, MPV 9.3, Immature Gran % (Auto) 0.400, Neut % (Auto) 77.7 H, Lymph % (Auto) 13.7 L, [place] % (Auto) 7.8, Eos % (Auto) 0.1, Baso % (Auto) 0.3, Absolute Neuts (auto) 10.6 H, Absolute Lymphs (auto) 1.86, Nucleated RBC % 0, PT 12.4, INR 0.9, APTT 23.4 L, Sodium 130 L, Potassium 4.6, Chloride 95 L, Carbon Dioxide 21.8, Anion Gap 13, BUN 14, Creatinine 1.08, Estim Creat Clear Calc 86.65, Est GFR (MDRD) Non-Af 81, BUN/Creatinine Ratio 13.0, Glucose 342 H, Calcium 9.2, Troponin T High Sens 23 H 09/30/24 22:01: Activated Clotting Time 187 H 09/30/24 22:13: Activated Clotting Time 256 H 10/01/24 00:30: Troponin T Hi Sens 2 Hr 1270 H* 10/01/24 05:00: WBC 13.0 H, RBC 4.19 L, Hgb 13.3, Hct 37.5 L, MCV 89.5, MCH 31.7, MCHC 35.5, RDW Std Deviation 39.9, RDW Coeff of Sue 12.2, Plt Count 252, MPV 9.7, Sodium 131 L, Potassium 4.5, Chloride 96 L, Carbon Dioxide 21.9, Anion Gap 14, BUN 19, Creatinine 0.88, Estim Creat Clear Calc 104.93, Est GFR (MDRD) Non-Af 102, BUN/Creatinine Ratio 21.9 H, Glucose 333 H, Calcium 8.7, Total Bilirubin 0.38, AST 87 H, ALT 27, Alkaline Phosphatase 74, Troponin T Hi Sens 4Hr 1494 H*, Total Protein 6.5, Albumin 3.9, Globulin 2.6, Albumin/Globulin Ratio 1.5 Rhythm Strip Rhythm Strip: Sinus Rhythm Rate: 88 Ectopy: None Cardiology Labs/Tests 09/30/24 21:30: WBC 13.6 H, RBC 4.87, Hgb 15.2, Hct 42.8, MCV 87.9, MCH 31.2, MCHC 35.5, Plt Count 260, MPV 9.3, Immature Gran % (Auto) 0.400, Neut % (Auto) 77.7 H, Lymph % (Auto) 13.7 L, [place] % (Auto) 7.8, Eos % (Auto) 0.1, Baso % (Auto) 0.3, Absolute Neuts (auto) 10.6 H, Nucleated RBC % 0, PT 12.4, INR 0.9, APTT 23.4 L, Sodium 130 L, Potassium 4.6, Chloride 95 L, Carbon Dioxide 21.8, Anion Gap 13, BUN 14, Creatinine 1.08, Est GFR (MDRD) Non-Af 81, BUN/Creatinine Ratio 13.0, Glucose 342 H, Calcium 9.2 10/01/24 05:00: WBC 13.0 H, RBC 4.19 L, Hgb 13.3, Hct 37.5 L, MCV 89.5, MCH 31.7, MCHC 35.5, Plt Count 252, MPV 9.7, Sodium 131 L, Potassium 4.5, Chloride 96 L, Carbon Dioxide 21.9, Anion Gap 14, BUN 19, Creatinine 0.88, Est GFR (MDRD) Non-Af 102, BUN/Creatinine Ratio 21.9 H, Glucose 333 H, Calcium 8.7, Total Bilirubin 0.38 Rhythm: EKG: ECHO: Stress Test: Cardiac Cath: PCI: CT Surgery: Holter monitor: EPS: PPM: CXR: Chest CT Scan: Radiography Diagnostic Testing: Radiology Impression Chest X-Ray 09/30/24 21:42 IMPRESSION: No Acute Findings. Reading Location: [facility] Physical Exam Const alert, oriented x3 and no apparent distress General Appearance: cooperative HEENT hearing grossly normal bilaterally Head and Scalp: atraumatic Eyes EOMs intact bilaterally Neck General: normal visual inspection Chest inspection of chest normal and palpation of chest normal Resp normal respiratory effort Auscultation: clear to auscultation bilaterally Cardio regular rate, regular rhythm, S1 normal heart sound and S2 normal heart sound Jugular Venous Distention: JVD GI normal to inspection, nondistended, normoactive bowel sounds Extremity normal capillary refill and no pedal edema Peripheral Pulses: Yes pulses 2+ throughout and femoral pulses present Skin no rashes or lesions noted Neuro oriented x3 and CN's II-XII intact bilaterally Psych Appearance: grossly normal and appropriate Assessment & Plan Assessment/Plan (1) ST elevation (STEMI) myocardial infarction involving right coronary artery: PLAN: Patient presented with an acute ST elevation myocardial infarction involving the right coronary artery. He underwent angioplasty and stenting successfully. He is doing well this morning. Echocardiogram will be performed this morning to assess ventricular function. (2) Essential hypertension: PLAN: His blood pressure appears to be under good control. The plan to be to continue current medical therapy without any major changes. (3) Left ventricular systolic dysfunction (LVSD): PLAN: He does have evidence of left ventricular systolic dysfunction. This will be reevaluated with his echocardiogram. He will continue on his RACHEL inhibitor SGLT2 inhibitor has been instituted Spironolactone instituted He can probably be transferred to the PCU later today.
[2024-10-01 08:49] LABS: Bedside Glucose 266 mg/dL (74-106)
--- NOTE | 2024-10-01 10:00 | EKG12_ITS ---
Test Reason : AM EKG Blood Pressure : */* mmHG Vent. Rate : 60 BPM Atrial Rate : 60 BPM P-R Int : 178 ms QRS Dur : 100 ms QT Int : 434 ms P-R-T Axes : 33 -50 73 degrees QTcB Int : 434 ms Normal sinus rhythm Left anterior fascicular block Minimal voltage criteria for LVH, may be normal variant ( Isaias product ) Inferior infarct , age undetermined Abnormal ECG When compared with ECG of 01-Oct-2024 01:01, MANUAL COMPARISON REQUIRED DATA IS UNCONFIRMED Confirmed by AYAD SEN, ELIZABET ([id number]), videotape editor RUBY LASSITER ([id number]) on 10/01/2024 2:06:21 PM Referred By: Malcolm Wray Confirmed By: ELIZABET LION MD
--- NOTE | 2024-10-01 10:55 | CASEMGMT ---
LUBA MARCUS Assessment Face to Face with patient for initial transition planning/care coordination assessment. LUBA MARCUS introduced self and role at [facility], pt voices understanding. Pt is A&Ox4 and is resting comfortably in bed and is calm. Care providers, pharmacy, and demographics verified. Admitting dx: THUY MOODY Strata: 2 PCP: Ramses Earl Specialists: Denies Preferred Pharmacy: [facility] during stay Insurance: MMO Prescription Benefit: Yes LNOK: Wilmer Newberry (Son), Misty Wolff (Daughter) Living Arrangements: Pt lives with his son in a 2 story home with 2 steps to enter ADLs/IADLs: Pt states that he is completely independent Transportation: Self, son at the time of DC DME: Pt states that he has a functioning BGM with sufficient supplies. Pt states that he gets his supplies through [employer] and denies needs or concerns. Pt states that he also has a BP machine. HHC/SNF: Denies hx or needs ETOH/Tobacco/Illicit Drug Use: Pt states that he drinks a small amount of ETOH occasionally. Pt states that he uses chewing tobacco daily. Denies illicit drug use. Pt declines resources. Pt?s goal: Home Plan: Home, anticipate no additional needs e/f a new blood thinning Rx. Pt states that he is OK with using [facility] @ the time of DC and that he will have a payment method to do meds-to-bed prior to DC. CM to follow. 6-Click score is 24. Pt states that he plans to follow up with cardiology as an OP. Pt denies further questions or concerns at this time. Raffy Newberry RN, CM
[2024-10-01] MEDS: Carvedilol 3.125 MG TABLET PO ×2 (11:06→20:50)
[2024-10-01] MEDS: Insulin Lispro 100 UNIT/ML INSULN.PEN SC ×3 (11:11→20:50)
[2024-10-01 11:37] LABS: Bedside Glucose 275 mg/dL (74-106)
[2024-10-01 17:14] LABS: Bedside Glucose 285 mg/dL (74-106)
--- NOTE | 2024-10-01 17:52 | PCM.PN.HOSP ---
Reason for Visit Reason for Visit: Diagnoses Type 2 diabetes mellitus with other circulatory complications (09/30/24) Type 2 diabetes mellitus without complications (09/30/24) Obesity, class 1 (09/30/24) Essential (primary) hypertension (09/30/24) ST elevation (STEMI) myocardial infarction involving right coronary artery (09/30/24) ST elevation (STEMI) myocardial infarction involving other coronary artery of inferior wall (09/30/24) Atherosclerotic heart disease of [place] coronary artery without angina pectoris (09/30/24) Other ill-defined heart diseases (09/30/24) Tobacco use (09/30/24) Subjective Subjective Patient was seen and examined today, he has been medically stable, he has no complaints of any chest pain. Objective Data Objective Data Vital Signs: Vital Signs Temp Pulse Resp BP Pulse Ox O2 Del Method 97.1 F L 68 15 107/72 96 Room Air 10/01/24 15:00 10/01/24 15:00 10/01/24 15:00 10/01/24 15:00 10/01/24 15:00 10/01/24 15:00 Oxygen Delivery Method Room Air Weight: 96.388 kg Body Mass Index (BMI) 33.3 Intake & Output: Intake and Output for Last 24 Hours 09/29/24 09/30/24 10/01/24 23:59 23:59 23:59 Intake Total 1585 / 1585 Output Total 2650 / 2650 Balance -1065 / -1065 Lab / Micro Data 10/01/24 05:00 10/01/24 05:00 Labs: Laboratory Results - last 24 hr 09/30/24 21:21: Activated Clotting Time 153 H 09/30/24 21:30: WBC 13.6 H, RBC 4.87, Hgb 15.2, Hct 42.8, MCV 87.9, MCH 31.2, MCHC 35.5, RDW Std Deviation 38.4, RDW Coeff of Sue 11.9, Plt Count 260, MPV 9.3, Immature Gran % (Auto) 0.400, Neut % (Auto) 77.7 H, Lymph % (Auto) 13.7 L, Banner % (Auto) 7.8, Eos % (Auto) 0.1, Baso % (Auto) 0.3, Absolute Neuts (auto) 10.6 H, Absolute Lymphs (auto) 1.86, Nucleated RBC % 0, PT 12.4, INR 0.9, APTT 23.4 L, Sodium 130 L, Potassium 4.6, Chloride 95 L, Carbon Dioxide 21.8, Anion Gap 13, BUN 14, Creatinine 1.08, Estim Creat Clear Calc 86.65, Est GFR (MDRD) Non-Af 81, BUN/Creatinine Ratio 13.0, Glucose 342 H, Calcium 9.2, Troponin T High Sens 23 H 09/30/24 22:01: Activated Clotting Time 187 H 09/30/24 22:13: Activated Clotting Time 256 H 10/01/24 00:30: Troponin T Hi Sens 2 Hr 1270 H* 10/01/24 05:00: WBC 13.0 H, RBC 4.19 L, Hgb 13.3, Hct 37.5 L, MCV 89.5, MCH 31.7, MCHC 35.5, RDW Std Deviation 39.9, RDW Coeff of Sue 12.2, Plt Count 252, MPV 9.7, Sodium 131 L, Potassium 4.5, Chloride 96 L, Carbon Dioxide 21.9, Anion Gap 14, BUN 19, Creatinine 0.88, Estim Creat Clear Calc 104.93, Est GFR (MDRD) Non-Af 102, BUN/Creatinine Ratio 21.9 H, Glucose 333 H, Calcium 8.7, Total Bilirubin 0.38, AST 87 H, ALT 27, Alkaline Phosphatase 74, Troponin T Hi Sens 4Hr 1494 H*, Total Protein 6.5, Albumin 3.9, Globulin 2.6, Albumin/Globulin Ratio 1.5 10/01/24 08:30: POC Glucose 266 H 10/01/24 11:08: POC Glucose 275 H 10/01/24 16:45: POC Glucose 285 H Radiography Diagnostic Testing: Radiology Impression Chest X-Ray 09/30/24 21:42 IMPRESSION: No Acute Findings. Reading Location: [id number] Rhythm Strip Rhythm Strip: Sinus Rhythm Rate: 88 Ectopy: None Physical Exam Const alert, oriented x3, no apparent distress and healthy appearing General Appearance: cooperative, well kempt and well developed Orientation / Consciousness: awake, oriented to person, oriented to place and oriented to time HEENT normocephalic, head/scalp atraumatic and moist oral mucous membranes Eyes PERRL, EOMs intact bilaterally and conjunctivae normal Neck supple, no JVD, thyroid normal and no carotid bruits General: trachea midline Resp normal respiratory effort, no retractions, no use of accessory muscles and clear to auscultation bilaterally Auscultation: Negative for rales, rhonchi or wheezes Cardio regular rate, regular rhythm, S1 normal heart sound, S2 normal heart sound, no murmurs, no rub and no gallops GI normal to inspection, nondistended, normoactive bowel sounds, soft to palpation, non-tender and non-distended Extremity no clubbing, cyanosis or edema Skin no rashes or lesions noted General Skin Exam: no breakdown Neuro oriented x3, CN's II-XII intact bilaterally, no focal motor deficits and no sensory deficits noted Sensorium / Orientation: awake and alert Speech: speech normal Psych affect normal Assessment & Plan Assessment/Plan (1) ST elevation (STEMI) myocardial infarction involving right coronary artery: PLAN: Plan 1. ST elevation [place]-patient will remain on his current medications, cardiology is participating in his care #2 type 2 diabetes-patient is on oral medications, blood sugars will be monitored and sliding scale insulin will be administered as needed #3 hyperlipidemia-I will order lipid profile for the patient in the morning, but does not appear that he is on any medication for cholesterol #4 essential hypertension-blood pressure will be monitored, patient's blood pressure medications will be adjusted as needed Total clinical time spent by myself addressing the patient's medical issues, reviewing all of his data, and collaborating with patient's care team: 35 minutes Charges/Coding Visit Charges Inpatient E&M: 40972 Subs Hosp L2
[2024-10-01 23:37] LABS: Bedside Glucose 265 mg/dL (74-106)
[2024-10-02] VITALS (7 sets, daily range): BP systolic 107–150; BP diastolic 58–80; PULSE 59–65; RESP 14–17; TEMP 36.6; O2SAT 90–97; BMI 33.0
[2024-10-02] MEDS: Insulin Lispro 100 UNIT/ML INSULN.PEN SC ×2 (06:24→11:17)
[2024-10-02 07:01] LABS: Bedside Glucose 240 mg/dL (74-106)
[2024-10-02] MEDS: Clopidogrel Bisulfate 75 MG Tablet PO (08:15)
[2024-10-02] MEDS: Carvedilol 3.125 MG TABLET PO (08:15)
[2024-10-02] MEDS: Empagliflozin 10 MG Tablet PO (08:16)
[2024-10-02] MEDS: Aspirin E.C. 81 MG Tablet PO (08:16)
[2024-10-02] MEDS: Spironolactone 25 MG Tablet 12.5 MG PO (08:16)
[2024-10-02] MEDS: Lisinopril 5 MG Tablet PO (08:16)
[2024-10-02 08:37] LABS: Bedside Glucose 245 mg/dL (74-106)
--- NOTE | 2024-10-02 09:48 | DCINST_ITS ---
Discharge Instructions Diet Discharge Diet: 1800 Calorie Control Diet DC O2, CPAP, BIPAP needs Home O2 Discharge instructions: No Dressing / Incision Discharge Activity: Return to Normal Activity Weight Bearing Status: Full weight bearing Follow Up Care Test Results: Test results from this visit will be discussed in further detail at your follow- up appointment, if applicable. Discharge Plan Admission Admit Date/Time: 09/30/24 23:09 Primary Reason for Your Visit: Myocardial infarction Attending Provider: Wilmer Silver Primary Care Provider: Ramses Earl Consulting Providers: Polo Abbott Discharge Orders/Prescriptions Prescriptions: New aspirin 81 mg Tablet,Delayed Release (Dr/Ec) 81 mg PO DAILY@0800 Qty: 0 0RF carvedilol 3.125 mg Tablet 3.125 mg PO BID Qty: 60 0RF atorvastatin [Lipitor] 80 mg tablet 80 mg PO DAILY Qty: 30 0RF clopidogrel 75 mg Tablet 75 mg PO DAILY Qty: 30 0RF Jardiance 10 mg Tablet 10 mg PO DAILY Qty: 30 0RF Continued fosinopril 10 mg tablet 10 mg PO DAILY Qty: 90 3RF pioglitazone 30 mg tablet 30 mg PO DAILY Qty: 90 1RF metformin 500 mg tablet See Rx Instructions .ROUTE .COMPLEX Qty: 180 1RF Dose Instruction: TAKE 1 TABLET BY MOUTH TWICE DAILY Rx Instructions: TAKE 1 TABLET BY MOUTH TWICE DAILY glimepiride 2 mg tablet 2 mg PO DAILY Qty: 90 1RF Referrals / Follow Up: Malcolm Wray MD [Med Staff - Active Staff] - See Referral Note (in 4 weeks- office will contact you) Ramses Earl DO [Primary Care Provider] - Within 2 Weeks Disposition Disposition (needs filled in before D/C Order can be placed): Home, Self Care
--- NOTE | 2024-10-02 10:00 | DS.PCM_ITS ---
Providers Date of Admission: 09/30/24 Date of Discharge: 10/02/24 Primary Care Physician: Dr. Ramses Earl, DO Reason For Visit: chest pain Diagnosis Discharge Diagnosis (1) ST elevation (STEMI) myocardial infarction involving right coronary artery: Status: Acute Code(s): I21.11 - ST elevation (STEMI) myocardial infarction involving right coronary artery Plan 1. ST elevation [place]-patient will remain on his current medications, cardiology is participating in his care #2 type 2 diabetes-patient is on oral medications, blood sugars will be monitored and sliding scale insulin will be administered as needed #3 hyperlipidemia-I will order lipid profile for the patient in the morning, but does not appear that he is on any medication for cholesterol #4 essential hypertension-blood pressure will be monitored, patient's blood pressure medications will be adjusted as needed #5 mild pulmonary hypertension Total clinical time spent by myself addressing the patient's medical issues, reviewing all of his data, and collaborating with patient's care team: 35 minutes Medications at Discharge Home Medications fosinopril 10 mg tablet 10 mg PO DAILY #90 tabs 04/08/24 glimepiride 2 mg tablet 2 mg PO DAILY #90 tabs 04/08/24 metformin 500 mg tablet See Rx Instructions .Route .COMPLEX #180 tabs 04/08/24 pioglitazone 30 mg tablet 30 mg PO DAILY #90 tabs 04/08/24 aspirin 81 mg tablet,delayed release 81 mg PO DAILY@0800 #0 tabs 10/02/24 atorvastatin 80 mg tablet (Lipitor) 80 mg PO DAILY #30 tabs 10/02/24 carvedilol 3.125 mg tablet 3.125 mg PO BID #60 tabs 10/02/24 clopidogrel 75 mg tablet 75 mg PO DAILY #30 tabs 10/02/24 empagliflozin 10 mg tablet (Jardiance) 10 mg PO DAILY #30 tabs 10/02/24 Hospital Course Operations None Procedures 2-D Echocardiogram and Cardiac catheterization (With STEPHANIA placement and PTCA) Summary of Care Provided Minutes Spent on Discharge: 32 Hospital Course: This 54-year-old white male was seen in the emergency room at [facility] with chief complaint of chest pain, EKG was obtained which showed the patient to have a STEMI with inferior lead ST elevations, patient was taken to the [facility] where an occlusive lesion was noted in the right coronary artery, patient had a PTCA performed with STEPHANIA insertion. Patient did well and there were no complications from the procedure. Patient was admitted to ICU and cardiology participated in his care, echocardiogram was obtained which showed an EF of 60% with mild pulmonary hypertension. On 10/02/2024, patient was seen and examined: On examination he appeared in good health and spirits. Vital signs as documented. Skin warm and dry and without overt rashes. Neck without JVD, neck was supple, trachea midline, thyroid was normal. Lungs clear bilaterally, normal air movement was noted. Heart exam notable for regular rhythm, normal sounds and absence of murmurs, rubs or gallops. Abdomen unremarkable and without evidence of organomegaly, masses, or abdominal aortic enlargement. Bowel sounds are present, abdomen is not distended. Extremities nonedematous, no cyanosis was noted, no clubbing was noted. Neuro: Cranial nerves II through XII are grossly intact, no focal motor deficits were noted, sensation to light touch and pinprick intact, motor exam 5/5 throughout. Psych: Patient is alert and oriented x3, he does not appear anxious or depressed, he does not appear agitated. Patient was discharged home in stable condition on 10/02/2024 Weight / BMI Weight Weight: 95.663 kg Body Mass Index (BMI) 33.0 ABG / Lab / Microbiology Data 10/01/24 05:00 10/01/24 05:00 Laboratory: Laboratory Results - last 24 hr 10/01/24 11:08: POC Glucose 275 H 10/01/24 16:45: POC Glucose 285 H 10/01/24 20:49: POC Glucose 265 H 10/02/24 06:23: POC Glucose 240 H 10/02/24 08:13: POC Glucose 245 H Radiography Diagnostic Testing: Radiology Impression Echocardiogram 09/30/24 23:09 Interpretation Summary Mild inferior hypokinesis. Overall LVEF estimated at 60%. Stage I diastolic dysfunction Right ventricular systolic pressure estimated to be 38 mmHg. Ordering Physician: Malcolm Wray Referring Physician: Malcolm Wray Performed By: Jean-Paul Ibrahim RCS D/C Instructions Discharge Diet: 1800 Calorie Control Diet Weight Bearing Status: Full weight bearing DC O2, CPAP, BIPAP Needs Home O2 Discharge instructions: No Meaningful Use Info Meaningful Use Meaningful Use Diagnoses (Choose all that apply): AMI AMI/Post PCI/Angioplasty Aspirin given w/in 24hrs of arrival?: Yes ASA at discharge?: Yes Antiplatelet Therapy at Discharge:: Yes Statins at discharge?: Yes Richar/ARB at discharge?: Yes Beta Luciano at discharge?: Yes Done w/ Acute NC measure.: Yes Documented LVEF (%): 60 Ischemic Stroke Statin Dosing Therapy Reference: STATIN DOSE THERAPY REFERENCE: * Patients > 75 years receive moderate or high dose statin therapy. * Patients 75 years or YOUNGER should receive HIGH intensity statin dose unless contraindicated. You will be required to document reason for non-treatment if statin daily dose does not meet guidelines. HIGH DOSE STATIN THERAPY DAILY Atorvastatin > than or = to 40 mg Rosuvastatin > than or = to 20 mg Amlodipine + Atorvastatin > than or = to 2.5/40 mg Ezetimibe + Simvastatin 10/80 mg Simvastatin 80mg Discharge Plan Admission Admit Date/Time: 09/30/24 23:09 Primary Reason for Your Visit: Myocardial infarction Attending Provider: Wilmer Silver Primary Care Provider: Ramses Earl Consulting Providers: Polo Abbott Discharge Orders/Prescriptions Prescriptions: New aspirin 81 mg Tablet,Delayed Release (Dr/Ec) 81 mg PO DAILY@0800 Qty: 0 0RF carvedilol 3.125 mg Tablet 3.125 mg PO BID Qty: 60 0RF atorvastatin [Lipitor] 80 mg tablet 80 mg PO DAILY Qty: 30 0RF clopidogrel 75 mg Tablet 75 mg PO DAILY Qty: 30 0RF Jardiance 10 mg Tablet 10 mg PO DAILY Qty: 30 0RF Continued fosinopril 10 mg tablet 10 mg PO DAILY Qty: 90 3RF pioglitazone 30 mg tablet 30 mg PO DAILY Qty: 90 1RF metformin 500 mg tablet See Rx Instructions .ROUTE .COMPLEX Qty: 180 1RF Dose Instruction: TAKE 1 TABLET BY MOUTH TWICE DAILY Rx Instructions: TAKE 1 TABLET BY MOUTH TWICE DAILY glimepiride 2 mg tablet 2 mg PO DAILY Qty: 90 1RF Referrals / Follow Up: Malcolm Wray MD [Med Staff - Active Staff] - See Referral Note (in 4 weeks- office will contact you) Ramses Earl DO [Primary Care Provider] - Within 2 Weeks Disposition Disposition (needs filled in before D/C Order can be placed): Home, Self Care Charges/Coding Visit Charges Inpatient E&M: 90392 Disch Hosp >30min
--- NOTE | 2024-10-02 11:19 | CASEMGMT ---
Pt has an order for DC placed. TC to [facility]. [place] states that the pt Jardiance is 423$ after the savings card and insurance. Monroe states that all of the other medications are less than 20$ total. LUBA CM to pt room at this time. Pt states that he can afford this and denies concerns. Pt states that his son will be here soon with his payment method for meds to bed. Pt denies further DC needs or concerns. TC back to [facility] and updated. [facility] to deliver meds to bed prior to DC. Pt RN aware.
[2024-10-02 11:39] LABS: Bedside Glucose 169 mg/dL (74-106)
--- NOTE | 2024-10-02 13:09 | CHAPLAIN ---
Type of Pastoral Visit _x__ Initial Visit ___ Follow-up Visit ___ On-call Visit ___ General Patient Visit ___ Spiritual Assessment ___ Family Conference ___ Bereavement ___ Rapid Response ___ Code Blue ___ Other (describe below) Pastoral Care Referral From _x__ Patient ___ Family ___ Nurse ___ Physician ___ Interior Designer ___ General Maintenance Helper ___ Other (describe below) Sacrament/Intervention _x__ Active listening ___ Anointing ___ Jehovah'S Witness ___ Bereavement ___ Communion ___ Selene exploration ___ ___ Life review ___ Prayer ___ Reconciliation ___ Sacrament of Sick _x__ Supportive presence ___ Wedding ___ Other (describe below) Pastoral Comments patient is getting ready for his discharge; RN is working on that for him in the room at this time; pt says that he has been fortunate and blessed as his admission to hospital was beneficial for his health; pt says that he has support at home; pt denies any worries and acknowledges the value of prayer; pt expresses appreciation for the visit
== END 2024-10-02 12:06 | disposition home or self-care (01) | DRG 322 ==
LOC: ED 21:51 → ICU 10-01 07:04
PROVIDERS: Admitting Provider Internal Medicine; Emergency Provider Emergency Medicine; PCP Family Medicine; Referring Provider Internal Medicine Cardiovascular Disease; Visit Provider Internal Medicine
DX: I21.11 ST elevation (STEMI) myocardial infarction involving right coronary artery (principal); I27.20 Pulmonary hypertension, unspecified; E11.59 Type 2 diabetes mellitus with other circulatory complications; I10 Essential (primary) hypertension; Z68.34 Body mass index [BMI] 34.0-34.9, adult; I21.19 ST elevation (STEMI) myocardial infarction involving other coronary artery of inferior wall; F17.220 Nicotine dependence, chewing tobacco, uncomplicated; K43.9 Ventral hernia without obstruction or gangrene; I25.10 Atherosclerotic heart disease of native coronary artery without angina pectoris; Z79.02 Long term (current) use of antithrombotics/antiplatelets; Z83.3 Family history of diabetes mellitus; Z79.82 Long term (current) use of aspirin; Z79.84 Long term (current) use of oral hypoglycemic drugs; E66.811 Obesity, class 1; I51.89 Other ill-defined heart diseases
CPT/HCPCS: 71045; 80048; 80053; 82962; 84484; 85025; 85027; 85347; 85610; 85730; 92941; 92973; 93005; 93306; 93458; 94762; 99152; 99153; 99285; 99406; C1757; Q9957; Q9967; A4216; C1725; C1769; C1874; C1887; C1894; C8929; C9606; J1940; J2405

== ENCOUNTER → 2024-10-08 | Outpatient (CLI) | payer OTHER, SELFPAY ==
--- NOTE | 2024-10-08 08:19 | PCM.CR.HP2 ---
CR - History & Physical General Arrival date:: 10/08/24 Arrival time:: 08:19 Date of Referral:: 10/03/24 Date of CR Evaluation:: 10/08/24 Referring Physician: Dr. Wray Primary Diagnosis: PCI w/stent History of Present Cardiac Event Onset Date PTCA or coronary stenting:: Yes (onset 09/30/24) Vessel: RCA Medications Ambulatory Orders ?Medication ?Instructions ?Recorded fosinopril 10 mg tablet 10 mg PO DAILY #90 tabs 04/08/24 glimepiride 2 mg tablet 2 mg PO DAILY #90 tabs 04/08/24 metformin 500 mg tablet See Rx Instructions .Route 04/08/24 .COMPLEX #180 tabs pioglitazone 30 mg tablet 30 mg PO DAILY #90 tabs 04/08/24 aspirin 81 mg tablet,delayed 81 mg PO DAILY@0800 #0 tabs 10/02/24 release atorvastatin 80 mg tablet (Lipitor) 80 mg PO DAILY #30 tabs 10/02/24 carvedilol 3.125 mg tablet 3.125 mg PO BID #60 tabs 10/02/24 clopidogrel 75 mg tablet 75 mg PO DAILY #30 tabs 10/02/24 empagliflozin 10 mg tablet 10 mg PO DAILY #30 tabs 10/02/24 (Jardiance) Allergies Allergies No Known Allergies Allergy (Verified 09/30/24 21:25) Sleep Disorder Evaluation Hx of Sleep Apnea: No Do you snore loudly (louder than talking or can be heard through closed doors)?: Yes Do you often feel tired/ fatigued/ sleepy during daytime?: No Has anyone observed you stop breathing during sleep?: No History of Hypertension (for STOP score): Yes STOP Results: Positive Advanced Directives Advanced Directives Do you have a Healthcare Power of Busgirl?: No Living Will: No Advance Directives Information Provided: No Advance Directives on File: No DNR Order?:: No Past Medical History Covid-19 Screening Physicial Symptoms Other Clinical Concerns Exposure Risk Pertinent Comorbidities Has a serious heart condition:: Yes Diabetic:: Yes Past Medical Illness Past Medical History (Updated 10/01/24 @ 08:02 by Micha Gipson) Hypertension I10 His blood pressure is in adequate control. Diabetes E11.9 Family History Summary Family History Mother Diabetes Father Heart disease Social History Smoking History Smoking Status: Former smoker Years Smokin Packs Smoked per Day: 0 (unsure of how many packs and stopped in the late ) Hx Tobacco Use: Yes (chews tobacco) Alcohol Use Alcohol Usage: Yes (occas) Substance Abuse Hx Substance Use: No Occupation Occupation (List type of work in comments):: Employed Hours worked per day:: 10 Social Environment Status Marital Status: Current Living Arrangements Living Environment:: Family Children How many children do you have?: 4 Do any of your children live nearby?: Yes Safety Do you feel safe in your surroundings?: Yes Assistance Do you need any assistance at home?: no Review of Systems Review of Systems Hints Review of Present Symptoms: Reports Fatigue, Appetite - Normal and Sleep - Normal; Denies Shortness of Breath at Rest, Shortness of Breath with Exertion, PVD, Operative Discomfort, Angina, Wound Healing, Dizziness/Lightheadedness, Heart Arrhythmia/Irregularities, Appetite - Special Diet or Sexual Changes Pain Is Patient Pain Free?: Yes Risk Factor Assessment Chief Complaint Chief Complaint: PCI w/stent Vital Signs Pulse Ox: 100 Blood Pressure: 140/80 Pulse Pulse Rate: 77 Pulse Rhythm: Regular Hypertension How long have you been treated?: 20 years Blood Pressure Sitting - Right Arm: 140/80 Stress Stress: Work-related Diabetes Diabetic History: Type II Obesity Height: 5 ft 7 in Weight:: 218 lb Weight in Pounds: 218.0 lbs Body Mass Index (BMI): 34.1 Nutritional Referral for Obesity: No Physical Inactivity Physical Inactivity: Reg Exercise 30 min/day Risk Stratification Risk Guidelines: Moderate Risk: Risk Factor for Dyslipidemia, Risk Factor for Sedentary Lifestyle and Risk Factor for Depression and Highest Risk: Risk Factor for Smoking, Risk Factor for Diabetes, Risk Factor for Obesity and Risk Factor for Hypertension For Smoking Smoking Risk Guidelines For Dyslipidemia Dyslipidemia Risk Guidelines For Diabetes Mellitus Diabetes Risk Guidelines For Obesity/Overweight Obesity/Overweight Risk Guidelines For Hypertension Hypertension Risk Guidelines For Sedentary Lifestyle Sedentary Lifestyle Risk Guidelines For Depression Depression Risk Guidelines Family History Family History Mother Diabetes Father Heart disease Motivation Motivation to Participate On a scale of 1 to 10, how prepared are you to commit to attending program?: 5 What do you see as barriers to successfully being able to complete the program?: work What do you see as the benefits of succesfully completing the program? In other words, what do you hope to get out of participating in the program?: knowledge, more energy, get back to exercise Are there issues you are dealing with that will interfere with completing the program?: no Do you have a spouse or signficant other, family or friends who will help support you to complete the program?: yes
--- NOTE | 2024-10-08 08:24 | CR.ITP_ITS ---
Diagnosis General Information Admitting Diagnosis: PCI w/stent Personal Learning Style:: Audio/Visual Barriers to Learning: No Barriers Stage of change r/t lifestyle modifications:: Contemplation Gave educational material for:: Treating Heart Disease, How The Heart Works, What it means to have Heart Disease, How Coronary Artery Disease is Diagnosed, Heart Procedures, What Heart Medications Do, Risk Factors & Modifications, L iving an Active Life, Nutrition, Emotions & Heart Disease, Stress Management & Relaxation and Sleep Disorders & Heart Disease Education/Goals Cardiac Rehabilitation Goals Personal Goals: Initial Assessment: Participate in home exercise program, Get back to work, or to resume activities faster, Improve knowledge of cardiac di sease, Improve muscle strength and endurance, Improve diet and eating habits (eat healthier) and Control risk factors (learn risk factor modification) Scale for measuring improvement of personal goals Diagnosis & Disease Process Outcomes/Goals: Pt IDs own risk factors & lifestyle modifications by Session 10, Verbalizes symptoms of angina & response by session 3., Pt independently manages and Other Additional Outcomes/Goals: Plan/Interventions: Assist Pt to ID & engage in lifestyle modification to reduce CVD risk, Instruct on individual risk factors, Review symptoms of angina & emergency actions, Review secondary diagnosis & identify educational needs. and Other see comment 30 day Reassessments:: Not Met 30 day Reassessments:: Not Met 30 day Reassessments:: Not Met 30 day Reassessments:: Not Met Final Reassessments:: Not Met Safety Referral to Physical Therapy: No Referral to [facility] Case Management: No Fall Risk Assessed:: Yes Assistive Devices:: None Exercise - Initial Assessment Visit Date of Eval: 10/08/24 (initial eval ) Mets: Pre-: >3 METS for 30 minutes by discharge, >5 METS for 30 minutes by discharge, >7 METS for 30 minutes by discharge and Unable to meet goal due to: (see comment below) Physician Prescribed Exercise Modalities: Treadmill, Rower, Schwinn Airdyne AD-7, SciFit Stepper, SciFit Pro- II Ergometer and SciFit Lateral Bailing Machine Operator Frequency: 3x/week for 12 weeks [36 sessions] Intensity: 60-80% of age predicted maximum heart rate reserve Duration: 30 - 45 minutes Current METSs:: 3 Resting Blood Pressure: 140/80 EKG Type: NSR w/ left anterior fascicular block Outcomes & Goals Goals:: Verbalizes understanding of THR, RPE & goal METS by session 6, Documents in home exercise log/reports 30 min aerobic 5 day/wk by DC, Demonstrates accurate pulse taking by DC and Other additional outcome/goals: see below Intervention & Plan Exercise Program Goals: Instruct on personal THR & RPE, Instruct on MET level & personal MET goal, Show patient to take own pulse /validate performance until accurate, Instruct on home exercise and Other additional plan/int Physical Activity Home Exercise Physical Activity - Home Exercise: Safe Exercise, Warm-up, Self-monitoring, Cool-Down, Home Exercise > 30 min Daily and Sitting Time <3 hours/daily Outcomes & Goals Outcomes/Goals: Demonstrates correct Warm-up/exercise Cool-Down (S3) if = 2.5 METs, Verbalizes symptoms of exercise intolerance by Session 3 (S3), Demonstrate safe equipment use (S3) & follows exercise prescrition (6) and Other: See below Intervention & Plan Plan/Intervention: Instruct warm-up & cool-down if exercising at > 2 METs, Instruct on symptoms of exercise intolerance & actions to take, Instruct & monitor on saf, Assess intial functional capacity & safety risk and Other See below Nutrition - Initial Assessment Program Goals Nutrition Program Goals Patient has diagnosis of Hyperlipidemia (ICD E78)?: No Visit Date of Eval: 10/08/24 (initial eval ) Cholesterol/Lipids (Other Core Measures) Determine presence & major risk factors that modify LDL goal: Cigarette smoking, Hypertension or hypertensive medication, Low HDL cholesterol <40 mg/dL*, Family history of premature CHD in Male < 55 years: female <65 yearsFa and Age men > 45 years; women >/= 55 years Outcomes/Goals: Pt IDs own risk factors & lifestyle modifications by Session 10, Verbalizes symptoms of angina & response by session 3., Pt independently manages and Other Additional Outcomes/Goals: Intervention/Plan: Advocate for lipid panel cholesterol medication if applicable, Instruct on personal lipid levels & lipid goals/NCEP guidelines, Instruct on cholesterol and Other additional plan/int Referral to dietitian:: No Diabetes (Other Core Measures) Diabetes Type: Diagnosis Type II ICD-10 E11 Insulin dependent injection/pump?: No Non-Insulin Dependent?: Yes Do you monitor your blood sugar at home?: No Referral to Diabetic Clinic:: No Weight Mgt (Other Care) Height: 5 ft 7 in Weight:: 218 lb BMI: 34.1 Outcomes/Goals: Pt sets, maintains & shows weight loss goal & trend during rehab and Other additional outcomes/goals Intervention/Plan: Instruct on ideal BMI & set weight loss goal w/patient, Assist pt to ID & incorporate diet changes for weight loss by S9, Refer to Structured Weight Loss program as appropriate, Encourage goal of using 250- 300dcal per session for weight loss and Other additional plan/interventions Healthy Eating Habits Will attend diet classes:: Yes Outcomes/Goals:: Consume diet rich in vegs,fruits,whole grain/high fiber,fish,lean meat, Limit sat/trans fats,cholesterol & added salts & sugars and Other additional outcome/goals: Intervention/Plan:: Assess current eating habits and Other Additional plan/interventions Education Gave educational materials for:: Signs & symptoms of hypoglycemia, Signs & symptoms of hyperglycemia, Relate diabetes to coronary artery disease and Healthy eating Core - Initial Assessment Visit Date of Eval: 10/08/24 (initial eval ) Medication Compliance Preventative Medication(s):: Aspirin, Clopidogrel/P2Y12 inhibit, Statin/lipid and Beta dewayne H/O mental health issues: depression, anxiety, or addiction?: No Doesn?t believe in the benefits of treatment?: No Believes medications are unnecessary or harmful?: No Has a concern about medication side effects?: No Expresses concern over the cost of medications?: No Outcomes/Goals: Verbalizes medications,desired effect & common side effects @ DC, Pt self-reports following medication regimen, Keeps card in wallet w/medications listed by DC and Other additional outcome/goals: Interventions/plans: Instruct on medication effects & side effects, Review medication list w/patient every two weeks, Instruct importance of taking meds as ordered & assist problem solving and Other additional Hypertension Hypertension Diagnosis:: Hypertension ICD-10 I10 [place] [employer] Hypertension Guidelines Outcomes/Goals: Able to verbalize/achieve optimal blood pressure <130/80, Incorporates diet changes & exercise for blood pressure control by DC and Other additional outcomes/goals Interventions/plan: Instruct on optimal blood pressure, hypertension & medications, Instruct on effects of sodium, alcohol, stress, exercise &hypertension and Other additional plan/interventions Tobacco Cessation Referral Smoking Cessation Referral:: No Individual Education/Counseling:: No Education Schedule Given:: Yes Psychosocial - Initial Assess VIsit Date of Eval: 10/08/24 (initial eval ) History of previous Mental disease:: No Target Goals Target Goals Psychosocial Test Tool Used:: Kacie Vicente QOL Cardiac and PHQ-9 Questionnaire phq-9 Severity Referral to Behavioral Health PS - Interventions: Yes: Attend Stress Management Classes Outcomes/Goals: See list Psychosocial Outcomes/Goals:: ID's personal stressors & 2 strategies to manage stress by discharge and Other Additional outcome/goals: Intervention/Plan: See List Interventions/Plan:: Assess stressors,coping strategies & signs of derpression on admission, Instruct/assist pt to develop coping & personal stress Mgt strategies, Refer to Behavioral Health if appropriate, Refer to Physician if appropriate, Instruct patient to recognize signs & symptoms of depression, Instruct patient to recog and Other additional plan/intervention Patient Health Questionnaire PHQ-9 Screening Initial Assessment: 1. Little interest or pleasure in doing things: Several days 2. Feeling down, depressed, or hopeless: Not at all 3. Trouble falling or staying asleep, or sleeping too much: Not at all 4. Feeling tired or having little energy: Not at all 5. Poor appetite or overeating: Not at all 6. Feeling bad about yourself -- or that you are a failure or have let yourself or your family down: Not at all 7. Trouble concentrating on things, such as reading the newspaper or watching television: Not at all 8. Moving or speaking so slowly that other people could have noticed. Or the opposite - being so fidgety or restless that you have been moving around a lot more than usual: Not at all 9. Thoughts that you would be better off , or of hurting yourself in some way: Not at all How difficult have these problems made it for you to do your work, take care of things at home, or get along with other people?: Not difficult at all Total Score: 1 STEVE-Q SV Test Statements CAD is a disease of the arteries in the heart: I Don't Know Examples of risk factors for heart disease: True Angina is chest pain or discomfort: True The benefits of resistance training include: I Don't Know Eating more meat and dairy products: False Anti-platelet medications such as aspirin are important: I Don't Know The only effective way to manage stress: I Don't Know An exercise warm-up slowly increases heart rate: I Don't Know Prepared, processed foods usually have high sodium: True Depression is common after a heart attack: I Don't Know The statin medications lower cholesterol: True To control blood pressure, lower the amount of sodium: I Don't Know If someone gets chest discomfort during walking: False Transfats are partially hydrogenated vegetable oils: True Sleep apnea that is not treated increases the risk: I Don't Know To control cholesterol, one should become a vegetarian: I Don't Know Someone knows if he/she is exercising at the right level: I Don't Know Diabetes cannot be prevented with exercise & health eating: True Stress is a large risk for heart attack: True A diet that can help lower blood pressure is rich in: I Don't Know Total Score Total Correct Responses: 8 Self-Efficacy 6-Item Scale Initial Assessment: We would like to know how confident you are in doing certain activities. Please select your confidence level for: Fatigue Select Number: 9 Physical Discomfort or Pain Select Number: 9 Emotional Distress Select Number: 9 Other Symptoms or Health Problems Select Number: 9 Different Tasks and Activities Select Number: 9 Medication Select Number: 9 Total Score:: 9 Nutrition Survey Nutrition Survey Instructions Scoring Instructions Nutrition Survey Initial: Have you lost >10 lbs over the past 2 months without trying?: No Are you following a special diet at home for diabetes, low fat, or low salt?: No Are you interested in meeting with a dietitian for help understanding your diet?: No Do you eat less than 3 meals a day?: No Do you eat fatty meats (martin, sausage, ribs, etc), fried foods, desserts, large amounts of salad dressings, margarine, butter, or cheese most days?: Yes Do you have food allergies? [Enter types in comment field]: No Do you eat in restaurants more than 3 times a week?: No Do you season food with salt, seasoning salt, or garlic salt?: No Do you used canned, boxed, frozen meals, or soups, seasoning packets?: Yes Total Score:: 2 Exercise - 30-day Assessment Physician Prescribed Exercise Modalities: Treadmill, RowerLisa AD-7, SciFit Stepper, SciFit Pro- II Ergometer and SciFit Lateral Bailing Machine Operator Exercise - 60-day Assessment Physician Prescribed Exercise Modalities: Treadmill, Rower, Sidrainn Airdyne AD-7, SciFit Stepper, SciFit Pro- II Ergometer and SciFit Lateral Bailing Machine Operator Exercise - 90-day Assessment Physician Prescribed Exercise Modalities: Treadmill, Rower, Schwinn Airdyne AD-7, SciFit Stepper, SciFit Pro- II Ergometer and SciFit Lateral Bailing Machine Operator Exercise - Final/Discharge Physician Prescribed Exercise Modalities: Treadmill, Rower, Schwinn Airdyne AD-7, SciFit Stepper, SciFit Pro- II Ergometer and SciFit Lateral Bailing Machine Operator Frequency: 3x/week for 12 weeks [36 sessions] Intensity: 60-80% of age predicted maximum heart rate reserve Current METSs:: 3 Nutrition - 30-Day Assessment Weight Mgt (Other Care) Height: 5 ft 7 in Weight:: 218 lb BMI: 34.1 Nutrition - 60-Day Assessment Weight Mgt (Other Care) Height: 5 ft 7 in Weight:: 218 lb BMI: 34.1 Psychosocial - 30-Day Assess Target Goals Target Goals Referral to Behavioral Health PS - Interventions: Yes: Attend Stress Management Classes Psychosocial - 60-Day Assess Target Goals Target Goals Referral to Behavioral Health PS - Interventions: Yes: Attend Stress Management Classes Psychosocial - 90-Day Assess Target Goals Target Goals Referral to Behavioral Health PS - Interventions: Yes: Attend Stress Management Classes Psychosocial - Final Assessmen Target Goals Target Goals Referral to Behavioral Health PS - Interventions: Yes: Attend Stress Management Classes Nutrition - 90-Day Assessment Weight Mgt (Other Care) Height: 5 ft 7 in Weight:: 218 lb BMI: 34.1 Nutrition - Final Assessment Program Goals Patient has diagnosis of Hyperlipidemia (ICD E78)?: No Weight Mgt (Other Care) Height: 5 ft 7 in Weight:: 218 lb BMI: 34.1
[2024-10-08 08:51] VITALS: BP 140/80; PULSE 77; O2SAT 100; BMI 34.1
[2024-10-08 09:18] VITALS: BP 140/80; BMI 34.1
== END | disposition home or self-care (01) ==
LOC: CR 08:15
PROVIDERS: PCP Family Medicine; Referring Provider Internal Medicine Cardiovascular Disease; Visit Provider Internal Medicine Cardiovascular Disease
DX: I25.10 Atherosclerotic heart disease of native coronary artery without angina pectoris (principal); I25.2 Old myocardial infarction; I51.89 Other ill-defined heart diseases; Z95.5 Presence of coronary angioplasty implant and graft

== ENCOUNTER 2024-10-31 08:00 | Outpatient (RCR) | payer OTHER, SELFPAY ==
[2024-10-08 09:18] VITALS: BMI 34.1
--- NOTE | 2024-11-06 07:19 | PCM.CR.ITP ---
Exercise - Initial Assessment Visit Session #:: 5 Physician Prescribed Exercise Modalities: Treadmill, Schwinn Airdyne AD-7 and SciFit Stepper Nutrition - Initial Assessment Weight Mgt (Other Care) Height: 5 ft 7 in Weight:: 218 lb BMI: 34.1 Psychosocial - Initial Assess Target Goals Target Goals Referral to Behavioral Health PS - Interventions: Yes: Attend Stress Management Classes Patient Health Questionnaire PHQ-9 Screening 30-Day Re-eval Assessment: 1. Little interest or pleasure in doing things: Several days 2. Feeling down, depressed, or hopeless: Not at all 3. Trouble falling or staying asleep, or sleeping too much: Not at all 4. Feeling tired or having little energy: Not at all 5. Poor appetite or overeating: Not at all 6. Feeling bad about yourself -- or that you are a failure or have let yourself or your family down: Not at all 7. Trouble concentrating on things, such as reading the newspaper or watching television: Not at all 8. Moving or speaking so slowly that other people could have noticed. Or the opposite - being so fidgety or restless that you have been moving around a lot more than usual: Not at all 9. Thoughts that you would be better off , or of hurting yourself in some way: Not at all How difficult have these problems made it for you to do your work, take care of things at home, or get along with other people?: Not difficult at all Total Score: 1 Self-Efficacy 6-Item Scale 30-Day Re-eval Assessment: We would like to know how confident you are in doing certain activities. Please select your confidence level for: Fatigue Select Number: 9 Physical Discomfort or Pain Select Number: 9 Emotional Distress Select Number: 9 Other Symptoms or Health Problems Select Number: 9 Different Tasks and Activities Select Number: 9 Medication Select Number: 9 Total Score:: 9 Nutrition Survey Nutrition Survey Instructions Scoring Instructions Exercise - 30-day Assessment Visit Date of Eval: 11/06/24 Session #:: 5 Physician Prescribed Exercise Modalities: Treadmill, Schwinn Airdyne AD-7 and SciFit Stepper Frequency: 3x/week for 12 weeks [36 sessions] Intensity: 60-80% of age predicted maximum heart rate reserve Duration: 30 - 45 minutes Current METSs:: 6.2 Target Heart Rate:: 99-124 Current RPE:: 11-12 Maximum Excercise HR:: 120 Resting Blood Pressure: 130/70 Maximum Exercise Blood Pressure: 202/88 EKG Type: NSR to ST Outcomes & Goals Goals:: Verbalizes understanding of THR, RPE & goal METS by session 6, Documents in home exercise log/reports 30 min aerobic 5 day/wk by DC, Demonstrates accurate pulse taking by DC and Other additional outcome/goals: see below Intervention & Plan Exercise Program Goals: Instruct on personal THR & RPE, Instruct on MET level & personal MET goal, Show patient to take own pulse /validate performance until accurate, Instruct on home exercise and Other additional plan/int 30-day Reassessments 30 day Reassessments:: Progressing Physical Activity Home Exercise Physical Activity - Home Exercise: Safe Exercise, Warm-up, Self-monitoring, Cool-Down, Home Exercise > 30 min Daily and Sitting Time <3 hours/daily Outcomes & Goals Outcomes/Goals: Demonstrates correct Warm-up/exercise Cool-Down (S3) if = 2.5 METs, Verbalizes symptoms of exercise intolerance by Session 3 (S3), Demonstrate safe equipment use (S3) & follows exercise prescrition (6) and Other: See below Intervention & Plan Plan/Intervention: Instruct warm-up & cool-down if exercising at > 2 METs, Instruct on symptoms of exercise intolerance & actions to take, Instruct & monitor on saf, Assess intial functional capacity & safety risk and Other See below 30-day Reassessments 30 day Reassessments:: Progressing Reassessment Notes & Comments:: RPE explained to pt. Pt demonstrates understanding in his daily sessions. Exercise - 60-day Assessment Physician Prescribed Exercise Modalities: Treadmill, Schwinn Airdyne AD-7 and SciFit Stepper Exercise - 90-day Assessment Physician Prescribed Exercise Modalities: Treadmill, Schwinn Airdyne AD-7 and SciFit Stepper Exercise - Final/Discharge Physician Prescribed Exercise Modalities: Treadmill, Schwinn Airdyne AD-7 and SciFit Stepper Nutrition - 30-Day Assessment Program Goals Nutrition Program Goals Patient has diagnosis of Hyperlipidemia (ICD E78)?: Yes Visit Date of Eval: 11/06/24 Session #:: 5 Cholesterol/Lipids (Other Core Measures) Determine presence & major risk factors that modify LDL goal: Cigarette smoking, Hypertension or hypertensive medication, Low HDL cholesterol <40 mg/dL*, Family history of premature CHD in Male < 55 years: female <65 yearsFa and Age men > 45 years; women >/= 55 years Outcomes/Goals: Pt IDs own risk factors & lifestyle modifications by Session 10, Verbalizes symptoms of angina & response by session 3., Pt independently manages and Other Additional Outcomes/Goals: Intervention/Plan: Advocate for lipid panel cholesterol medication if applicable, Instruct on personal lipid levels & lipid goals/NCEP guidelines, Instruct on cholesterol and Other additional plan/int Referral to dietitian:: No Diabetes (Other Core Measures) Diabetes Type: Diagnosis Type II ICD-10 E11 Insulin dependent injection/pump?: No Non-Insulin Dependent?: Yes Do you monitor your blood sugar at home?: No Referral to Diabetic Clinic:: No Weight Mgt (Other Care) Height: 5 ft 7 in Weight:: 218 lb BMI: 34.1 Diagnosis Overweight/Obesity BMI> 30% ICD-10 E66: Yes Diagnosis High BMI/Morbid Obesity BMI> 35% ICD-10 Z68: No Outcomes/Goals: Pt sets, maintains & shows weight loss goal & trend during rehab and Other additional outcomes/goals Intervention/Plan: Instruct on ideal BMI & set weight loss goal w/patient, Assist pt to ID & incorporate diet changes for weight loss by S9, Refer to Structured Weight Loss program as appropriate, Encourage goal of using 250-300dcal per session for weight loss and Other additional plan/interventions Healthy Eating Habits Will attend diet classes:: Yes Outcomes/Goals:: Consume diet rich in vegs,fruits,whole grain/high fiber,fish,lean meat, Limit sat/trans fats,cholesterol & added salts & sugars and Other additional outcome/goals: Intervention/Plan:: Assess current eating habits and Other Additional plan/interventions 30-day Reassessments:: Progressing Reassessment Notes & Comments:: Heart healthy low sodium diet explained in nutrition class. Education Gave educational materials for:: Signs & symptoms of hypoglycemia, Signs & symptoms of hyperglycemia, Relate diabetes to coronary artery disease and Healthy eating Nutrition - 60-Day Assessment Weight Mgt (Other Care) Height: 5 ft 7 in Weight:: 218 lb BMI: 34.1 Core - 30-Day Assessment Visit Date of Eval: 11/06/24 Session #:: 5 Medication Compliance Preventative Medication(s):: Aspirin, Clopidogrel/P2Y12 inhibit, Statin/lipid and Beta dewayne H/O mental health issues: depression, anxiety, or addiction?: No Doesn?t believe in the benefits of treatment?: No Believes medications are unnecessary or harmful?: No Has a concern about medication side effects?: No Expresses concern over the cost of medications?: No Outcomes/Goals: Verbalizes medications,desired effect & common side effects @ DC, Pt self-reports following medication regimen, Keeps card in wallet w/medications listed by DC and Other additional outcome/goals: Interventions/plans: Instruct on medication effects & side effects, Review medication list w/patient every two weeks, Instruct importance of taking meds as ordered & assist problem solving and Other additional Hypertension Hypertension Diagnosis:: Hypertension ICD-10 I10 Resting Blood Pressure:: 130/70 [place] [employer] Hypertension Guidelines Peak Exercise Blood Pressure:: 202/88 Outcomes/Goals: Able to verbalize/achieve optimal blood pressure <130/80, Incorporates diet changes & exercise for blood pressure control by DC and Other additional outcomes/goals Interventions/plan: Instruct on optimal blood pressure, hypertension & medications, Instruct on effects of sodium, alcohol, stress, exercise &hypertension and Other additional plan/interventions 30 day Reassessments:: Progressing Reassessment Notes & Comments:: Pt's BP's are slightly elevated. Low sodium heart healthy diet encouraged. Will continue to monitor and send report to pt's physician if necessary. Tobacco Cessation Referral Smoking Cessation Referral:: No Individual Education/Counseling:: No Education Schedule Given:: Yes Psychosocial - 30-Day Assess VIsit Date of Eval: 11/06/24 Session #:: 5 History of previous Mental disease:: No Target Goals Target Goals Psychosocial Test Tool Used:: [employer] check24 QOL Cardiac and PHQ-9 Questionnaire phq-9 Severity See PHQ-9 Score: 1 Referral to Behavioral Health PS - Interventions: Yes: Attend Stress Management Classes Outcomes/Goals: See list Psychosocial Outcomes/Goals:: ID's personal stressors & 2 strategies to manage stress by discharge and Other Additional outcome/goals: Intervention/Plan: See List Interventions/Plan:: Assess stressors,coping strategies & signs of derpression on admission, Instruct/assist pt to develop coping & personal stress Mgt strategies, Refer to Behavioral Health if appropriate, Refer to Physician if appropriate, Instruct patient to recognize signs & symptoms of depression, Instruct patient to recog and Other additional plan/intervention 30-day Reassessments: 30 day Reassessments:: Progressing Reassessment Notes & Comments:: Pt denies any psychosocial issues at this time. Pt to attend stress management class. Will continue to monitor. Psychosocial - 60-Day Assess Target Goals Target Goals Referral to Behavioral Health PS - Interventions: Yes: Attend Stress Management Classes Outcomes/Goals: See list Psychosocial Outcomes/Goals:: ID's personal stressors & 2 strategies to manage stress by discharge and Other Additional outcome/goals: Psychosocial - 90-Day Assess Target Goals Target Goals Referral to Behavioral Health PS - Interventions: Yes: Attend Stress Management Classes Psychosocial - Final Assessmen Target Goals Target Goals Referral to Behavioral Health PS - Interventions: Yes: Attend Stress Management Classes Nutrition - 90-Day Assessment Weight Mgt (Other Care) Height: 5 ft 7 in Weight:: 218 lb BMI: 34.1 Nutrition - Final Assessment Weight Mgt (Other Care) Height: 5 ft 7 in Weight:: 218 lb BMI: 34.1
[2024-11-06 07:29] VITALS: BP 130/70; BMI 34.1
== END 2024-11-08 23:59 ==
LOC: CR 08:00
PROVIDERS: PCP Family Medicine; Referring Provider Internal Medicine Cardiovascular Disease; Visit Provider Internal Medicine Cardiovascular Disease
DX: I21.19 ST elevation (STEMI) myocardial infarction involving other coronary artery of inferior wall (principal); I21.11 ST elevation (STEMI) myocardial infarction involving right coronary artery; I51.89 Other ill-defined heart diseases; I25.10 Atherosclerotic heart disease of native coronary artery without angina pectoris; R07.9 Chest pain, unspecified
CPT/HCPCS: 93798

== ENCOUNTER → 2024-11-14 | Outpatient (CLI) | payer OTHER, SELFPAY ==
[2024-11-06 07:29] VITALS: BMI 34.1
[2024-11-14 10:57] LABS: Cholesterol 131 mg/dL (<=200); High Density Lipoprotein 41 mg/dL; Low Density Lipoprotein Calc. 44 mg/dL; Triglycerides 229 mg/dL; Very Low Density Lipoprotein 46 mg/dL (5-40); cholesterol:hdl ratio screen 3.16
[2024-11-14 11:05] LABS: ALB/GLOB Ratio 1.5 RATIO (0.9-2.4); AST(SGOT) 24 U/L (<=37); Alanine Aminotransfer ALT/SGPT 28 U/L (<=46); Albumin, Serum 4.3 g/dL (3.5-5.0); Alkaline Phosphatase 90 U/L (40-129); Anion Gap 15 (5-15); BUN 19 mg/dL (4-19); BUN/Creat Ratio 24.6 RATIO (10-20); Calcium,Total 9.1 mg/dL (7.6-11.0); Carbon Dioxide 21.5 mmol/L (21.0-32.0); Chloride 99 mmol/L (98-108); Creatinine, Serum 0.77 mg/dL (0.70-1.20); EST Glomerular Filtration Rate 106 (>60); Globulin 2.9 g/dL (2.2-4.2); Glucose 150 mg/dL (70-99); Potassium 4.6 mmol/L (3.3-5.1); Protein, Total 7.2 g/dL (5.9-8.4); Sodium Level 135 mmol/L (133-145); Total Bilirubin 0.45 mg/dL (0.00-1.30)
== END | disposition home or self-care (01) ==
LOC: LAB 09:26
PROVIDERS: PCP Family Medicine; Referring Provider Internal Medicine Cardiovascular Disease; Visit Provider Internal Medicine Cardiovascular Disease
DX: I25.10 Atherosclerotic heart disease of native coronary artery without angina pectoris (principal); E11.69 Type 2 diabetes mellitus with other specified complication; I10 Essential (primary) hypertension; E78.5 Hyperlipidemia, unspecified
CPT/HCPCS: 36415; 80053; 80061

== ENCOUNTER → 2024-11-24 | Outpatient (CLI) | payer OTHER, SELFPAY ==
[2024-10-08 09:18] VITALS: BMI 34.1
[2024-11-06 07:29] VITALS: BMI 34.1
--- OUTSIDE RECORDS SUMMARY | 2024-11-24 22:56 | XMS RPT_ITS | CCD ---
Author Organization [facility] Care Team Providers Care Machine Sewer Name Role Phone Dr. Ramses Earl DO Primary Care Provider Dr. Ramses Earl DO Attending Provider [phone] Dr. Ramses Earl DO Referring Provider [phone] Dr. Holden Will MD Emergency Provider [phone] Abbott DO, Dr. Cuellar Admit Provider Unavail able Abbott DO, Dr. Cuellar Attending Provider Unav ailable Abbott DO, Dr. Cuellar Other Provider Unavail able Nils SEN, Dr. Fowler Attending Provider [phone] Dr. Malcolm Wray MD Referring Provider Dr. Wilmer Silver DO Attending Provider Dr. Wilmer Silver DO Other Provider [phone] Genia SEN, Dr. Hess Attending Provider [phone] Brown, Ramses R Primary Care Unavailable Brown, Ramses R Referring Unavailable Brown, Ramses R Attending Unavailable Brown, Ramses R Primary Care Unavailable Brown, Ramses R Referring Unavailable Brown, Ramses R Attending Unavailable Brown, Ramses R Primary Care Unavailable Brown, Ramses R Referring Unavailable aRjat, Ramses R Attending Unavailable Polo Abbott Consulting Unavailable Ramses Earl R Primary Care Unavailable NilsMalcolm buckner Referring Unavailable Wilmer Silver Attending Unavailable Polo Abbott Admitting Unavailable Wilmer Silver Consulting Unavailable Rajat, Ramses R Primary Care Unavailable Brown, Ramses R Referring Unavailable Ramses Earl R Attending Unavailable Polo Abbott Consulting Unavailable Rajat, Ramses R Primary Care Unavailable NilsMalcolm buckner Referring Unavailable Malcolm Wray Attending Unavailable Polo Abbott Admitting Unavailable Deshawn Cormier Attending Unavailable Wilmer Silver Consulting Unavailable Polo Abbott Attending Unavailable Brown, Ramses R Primary Care Unavailable Nils, Malcolm Attending Unavailable Brown, Ramses R Primary Care Unavailable Nils, Malcolm Attending Unavailable Brown, Ramses R Primary Care Unavailable Nils, Malcolm Referring Unavailable Nils, Malcolm Attending Unavailable Brown, Ramses R Primary Care Unavailable Brown, Ramses R Referring Unavailable Nils, Malcolm Attending Unavailable Brown, Ramses R Primary Care Unavailable Nils, Malcolm Referring Unavailable Nils, Malcolm Attending Unavailable Brown, Ramses R Primary Care Unavailable Nils, Malcolm Referring Unavailable Nils, Malcolm Attending Unavailable Brown, Ramses R Primary Care Unavailable Nils, Malcolm Referring Unavailable Nils, Malcolm Attending Unavailable Brown, Ramses R Primary Care Unavailable Brown, Ramses R Referring Unavailable Brown, Ramses R Attending Unavailable Polo Abbott Consulting Unavailable Wilmer Silver Attending Unavailable Polo Abbott Admitting Unavailable Nils, Malcolm Referring Unavailable Brown, Ramses R Primary Care Unavailable Brown, Ramses R Primary Care Unavailable Nils, Malcolm Referring Unavailable Nils, Malcolm Attending Unavailable Medications Current Medications Medication Drug Class(es) Dates Sig (Normalized) Sig (Original) aspirin 81 mg delayed release oral tablet (5 sources) Platelet Aggregation Inhibitor, Nonsteroidal Anti-inflammatory Drug Start: 10-02-2024 take 1 tablet by mouth once daily Aspirin 81 mg Tablet,Delayed Release (Dr/Ec) Active 81 mg PO DAILY@0800 0 October 02, 2024 12:00am atorvastatin 80 mg oral tablet (9 sources) HMG-CoA Reductase Inhibitor Start: 10-02-2024 End: 10-22-2024 take 1 tablet by mouth once daily Atorvastatin (Lipitor) 80 mg tablet Active 80 mg PO DAILY 30 October 22, 2024 3:32pm carvedilol 3.125 mg oral tablet (9 sources) alpha-Adrenergic Luciano, beta-Adrenergic Luciano Start: 10-02-2024 End: 10-22-2024 take 1 tablet by mouth twice daily Carvedilol 3.125 mg tablet Active 3.125 mg PO TWICE A DAY October 22, 2024 3:32pm clopidogrel 75 mg oral tablet (9 sources) P2Y12 Platelet Inhibitor Start: 10-02-2024 End: 10-22-2024 take 1 tablet by mouth once daily Clopidogrel 75 mg tablet Active 75 mg PO DAILY October 22, 2024 3:32pm empagliflozin 10 mg oral tablet (9 sources) Sodium-Glucose Cotransporter 2 Inhibitor Start: 10-02-2024 End: 10-22-2024 take 1 tablet by mouth once daily Empagliflozin (Jardiance) 10 mg tablet Active 10 mg PO DAILY October 22, 2024 3:32pm fosinopril sodium 10 mg oral tablet (20 sources) Angiotensin Converting Enzyme Inhibitor Start: 04-08-2024 take 1 tablet by mouth once daily Fosinopril 10 mg tablet Active 10 mg PO DAILY April 08, 2024 2:40pm Start: 10-24-2023 End: 04-08-2024 take 1 tablet by mouth once daily Fosinopril 20 mg tablet Discontinued 10 mg PO DAILY October 24, 2023 9:44am April 08, 2024 2:41pm Start: 10-07-2016 End: 10-24-2023 take 1 tablet by mouth once daily Fosinopril 10 mg tablet Discontinued 10 mg PO DAILY June 09, 2021 10:32am June 21, 2022 5:38pm pioglitazone 30 mg oral tablet (20 sources) Peroxisome Proliferator Receptor alpha Agonist, Peroxisome Proliferator Receptor gamma Agonist, Thiazolidinedione Start: 10-24-2023 End: 11-11-2024 take 1 tablet by mouth once daily Pioglitazone 30 mg tablet Active 30 mg PO DAILY November 11, 2024 8:27am Start: 09-05-2017 End: 06-14-2023 take 1 tablet by mouth once daily Pioglitazone 30 mg tablet Discontinued 0 .ROUTE .COMPLEX June 09, 2021 10:32am October 13, 2021 4:23pm TAKE 1 TABLET BY MOUTH ONCE DAILY Completed/Discontinued Medications Medication Drug Class(es) Dates Sig (Normalized) Sig (Original) cephalexin 500 mg oral capsule (5 sources) Cephalosporin Antibacterial Start: 10-07-2016 End: 09-05-2017 take 1 capsule by mouth every six hours Cephalexin 500 MG capsule Discontinued 500 mg PO EVERY 6 HOURS 40 October 07, 2016 12:00am September 05, 2017 3:50pm colchicine 0.6 mg oral capsule (10 sources) Start: 10-07-2016 End: 10-07-2016 take 1 capsule by mouth three times daily Colchicine 0.6 MG capsule Discontinued 0.6 mg PO THREE TIMES A DAY October 07, 2016 12:00am October 07, 2016 3:09pm Start: 10-07-2016 End: 09-05-2017 take 1 capsule by mouth twice daily Colchicine 0.6 MG capsule Discontinued 0.6 mg PO TWICE A DAY October 07, 2016 12:00am September 05, 2017 3:51pm glimepiride 2 mg oral tablet (20 sources) Sulfonylurea Start: 09-05-2017 End: 04-08-2024 take 1 tablet by mouth in the morning Glimepiride 2 mg tablet Discontinued 0 .ROUTE .COMPLEX June 09, 2021 10:32am October 13, 2021 4:23pm TAKE 1 TABLET BY MOUTH IN THE MORNING ibuprofen 800 mg oral tablet (5 sources) Nonsteroidal Anti-inflammatory Drug Start: 10-07-2016 End: 09-05-2017 take 1 tablet by mouth three times daily as needed for pain Ibuprofen 800 MG tablet Discontinued 800 mg PO 3 TIMES DAILY NEEDED as needed for Pain October 07, 2016 12:00am September 05, 2017 3:51pm metFORMIN hydrochloride 500 mg oral tablet (20 sources) Biguanide Start: 09-05-2017 End: 04-08-2024 take 1 tablet by mouth twice daily Metformin 500 mg tablet Discontinued 0 .ROUTE .COMPLEX 180 June 09, 2021 10:32am October 13, 2021 4:23pm TAKE 1 TABLET BY MOUTH TWICE DAILY SITagliptin 100 mg oral tablet (10 sources) Dipeptidyl Peptidase 4 Inhibitor Start: 03-06-2023 End: 04-08-2024 take 1 tablet by mouth once daily Sitagliptin Phosphate (Januvia) 100 mg tablet Discontinued 100 mg PO DAILY June 14, 2023 4:41pm April 08, 2024 2:35pm Problems Problem Classification Problem Date Documented Date Episodic/Chronic Acute myocardial infarction (20 sources) Myocardial infarction; Translations: [ST elevation (STEMI) myocardial infarction involving right coronary artery] Onset: 09-30-2024 10-10-2024 Chronic Coronary atherosclerosis and other heart disease (20 sources) Coronary arteriosclerosis; Translations: [Atherosclerotic heart disease of unga coronary artery without angina pectoris] Onset: 10-08-2024 09-30-2024 Chronic Coronary atherosclerosis and other heart disease (1 source) Presence of coronary angioplasty implant and graft; Translations: [Presence of coronary angioplasty implant and graft] Onset: 11-04-2024 Episodic Diabetes mellitus with complications (12 sources) Hyperlipidemia due to type 2 diabetes mellitus; Translations: [Type 2 diabetes mellitus with other specified complication] Onset: 10-08-2024 10-22-2024 Chronic Diabetes mellitus without complication (20 sources) Diabetes mellitus; Translations: [Type 2 diabetes mellitus without complications] Onset: 08-05-2024 07-17-2018 Chronic Disorders of lipid metabolism (7 sources) Dyslipidemia; Translations: [Hyperlipidemia, unspecified] Onset: 11-04-2024 11-04-2024 Chronic Essential hypertension (20 sources) Essential hypertension; Translations: [Essential (primary) hypertension] Onset: 10-08-2024 10-01-2024 Chronic Comment on above: His blood pressure i s in adequate control. Nonspecific chest pain (6 sources) Chest pain; Translations: [Chest pain, unspecified] Onset: 10-08-2024 09-30-2024 Episodic Other and ill-defined heart disease (10 sources) Left ventricular systolic dysfunction; Translations: [Other ill-defined heart diseases] 10-10-2024 Chronic Other and ill-defined heart disease (1 source) Other ill-defined heart diseases; Translations: [Other ill-defined heart diseases] Onset: 10-08-2024 Chronic Other circulatory disease (1 source) H/O: hypertension; Translations: [Personal history of other diseases of the circulatory system] 09-30-2024 Episodic Other nutritional; endocrine; and metabolic disorders (10 sources) Obese class I; Translations: [Class 1 obesity] 10-10-2024 Chronic Other nutritional; endocrine; and metabolic disorders (1 source) H/O: diabetes mellitus; Translations: [Personal history of other endocrine, nutritional and metabolic disease] 09-30-2024 Episodic Residual codes; unclassified (8 sources) Sleep apnea; Translations: [Sleep apnea, unspecified] 11-04-2024 Chronic Residual codes; unclassified (2 sources) Obstructive sleep apnea (adult) (pediatric); Translations: [Obstructive sleep apnea (adult) (pediatric)] Onset: 11-04-2024 Chronic Residual codes; unclassified (1 source) Sleep apnea, unspecified; Translations: [Sleep apnea, unspecified] Onset: 11-04-2024 Chronic Residual codes; unclassified (10 sources) Tobacco user; Translations: [Tobacco use] 10-10-2024 Episodic Residual codes; unclassified (1 source) Tobacco use; Translations: [Tobacco use] Onset: 10-08-2024 Episodic Sprains and strains (5 sources) Injury of tendon of biceps brachii; Translations: [Strain of muscle, fascia and tendon of other parts of biceps, unspecified arm, initial encounter] 10-24-2023 Episodic Unclassified (5 sources) I21.19 - ST elevation (STEMI) myocardial infarction involving other coronary artery of inferior wall,I21.11 - ST elevation (STEMI) myocardial infarction involving right coronary artery,I51.89 - Other ill-defined heart diseases,I25.10 - Atherosclerotic heart disease of unga coronary artery without angina pectoris,R07.9 - Chest pain, unspecified Unclassified (5 sources) in 4 weeks-office will contact you Unclassified (1 source) Obesity, class 1; Translations: [Obesity, class 1] Onset: 10-08-2024 Results Test Name Value Interpretation Reference Range Facility Anion gap in Serum or Plasma Ordered By: Malcolm Wray on 11-14-2024 Anion gap [Moles/Vol] 15 mmol/L 5-15 [facility] BUN/creatinine ratioOrdered By: Malcolm Wray on 11-14-2024 Urea nitrogen/Creatinine [Mass ratio] 24.6 mg/mg High 10-20 [facility] Bilirubin, totalOrdered By: Malcolm Wray on 11-14-2024 Bilirubin [Mass/Vol] 0.45 mg/dL 0.00-1.30 [facility] Calculated very low density lipoprotein (VLDL) cholesterol measurementOrdered By: Malcolm Wray on 11-14-2024 Calculated very low density lipoprotein (VLDL) cholesterol measurement 46 mg/dL High 5-40 [facility] Carbon dioxide, total [Moles /volume] in Central venous bloodOrdered By: Malcolm Wray on 11-14-2024 CO2 [Moles/Vol] 21.5 mmol/L 21.0-32.0 [facility] Chloride assayOrdered By: Delonte Wray on 06-06-2025 Chloride [Moles/Vol] 99 mmol/L 98-108 [facility] Comprehensive Metabolic Prof ilon 11-14-2024 Albumin [Mass/Vol] 4.3 g/dL Normal 3.5-5.[address] [facility] Comment on above: Performed By: #### L 500.4050, L100.0500 #### [facility] [address] [place], [address] Albumin/Globulin [Mass ratio] 1.5 {ratio} Normal 0.9-2.4 [facility] Comment on above: Performed By: #### L 500.4050, L100.0500 #### [facility] [address] [place], [address] ALK PHOS 90 U/L Normal 40-129 [facility] Comment on above: Performed By: #### L 500.4050, L100.0500 #### [facility] [address] [place], [address] ALT [Catalytic activity/Vol] 28 U/L Normal <=46 [facility] Comment on above: Performed By: #### L 500.4050, L100.0500 #### [facility] [address] [place], [address] AST [Catalytic activity/Vol] 24 U/L Normal <=37 [facility] Comment on above: Result Comment: Hemo lysis present, Results??could be affected. ?? Performed By: #### L 500.4050, L100.0500 #### [facility] [address] [place], [address] Bilirubin [Mass/Vol] 0.45 mg/dL Normal 0.00-1.30 [facility] Comment on above: Performed By: #### L 500.4050, L100.0500 #### [facility] [address] [place], [address] BUN/CRE 24.6 RATIO High 10-20 [facility] Comment on above: Performed By: #### L 500.4050, L100.0500 #### [facility] [address] [place], [address] Calcium [Mass/Vol] 9.1 mg/dL Normal 7.6-11.[address] [facility] Comment on above: Performed By: #### L 500.4050, L100.0500 #### [facility] [address] [place], [address] Chloride [Moles/Vol] 99 mmol/L Normal 98-108 [facility] Comment on above: Performed By: #### L 500.4050, L100.0500 #### [facility] [address] [place], [address] CO2 [Moles/Vol] 21.5 mmol/L Normal 21.0-32.0 [facility] Comment on above: Performed By: #### L 500.4050, L100.0500 #### [facility] [address] [place], [address] Creatinine [Mass/Vol] 0.77 mg/dL Normal 0.70-1.20 [facility] Comment on above: Performed By: #### L 500.4050, L100.0500 #### [facility] [address] [place], [address] GAP 15 Normal 5-15 [facility] Comment on above: Performed By: #### L 500.4050, L100.0500 #### [facility] [address] [place], [address] GFR/1.73 sq M.predicted among non-blacks MDRD (S/P/Bld) [Vol rate/Area] 106 mL/min/{1.73_m2} Normal >60 [facility] Comment on above: Result Comment: mL/m in/1.73m2 CKD-EPI Creatinine Equation (2020) Performed By: #### L 500.4050, L100.0500 #### [facility] [address] [place], [address] Globulin (S) [Mass/Vol] 2.9 g/dL Normal 2.2-4.[address] [facility] Comment on above: Performed By: #### L 500.4050, L100.0500 #### [facility] [address] [place], [address] Glucose [Mass/Vol] 150 mg/dL High 70-[address] [facility] Comment on above: Performed By: #### L 500.4050, L100.0500 #### [facility] [address] [place], [address] Potassium [Moles/Vol] 4.6 mmol/L Normal 3.3-5.1 [facility] Comment on above: Result Comment: Hemo lysis present, Results??could be affected. ?? Performed By: #### L 500.4050, L100.0500 #### [facility] [address] [place], [address] Sodium [Moles/Vol] 135 mmol/L Normal 133-[address] [facility] Comment on above: Performed By: #### L 500.4050, L100.0500 #### [facility] [address] [place], [address] T PROT 7.2 g/dL Normal 5.9-8.4 [facility] Comment on above: Performed By: #### L 500.4050, L100.0500 #### [facility] [address] [place], [address] Urea nitrogen [Mass/Vol] 19 mg/dL Normal 4-19 [facility] Comment on above: Performed By: #### L 500.4050, L100.0500 #### [facility] [address] [place], [address] Glomerular filtration rate ( GFR) estimation/1.73 sq m using serum, plasma, or whole bOrdered By: Malcolm Wray on 11-14-2024 GFR/1.73 sq M.predicted among non-blacks MDRD (S/P/Bld) [Vol rate/Area] 106 mL/min/{1.73_m2} >60 [facility] Comment on above: mL/min/1.73m2 CKD-EP I Creatinine Equation (2020) LDL calc ser/plasOrdered By: Malcolm Wray on 11-14-2024 Cholesterol in LDL [Mass/Vol] 44 mg/dL [facility] Comment on above: Vnbjsfmbns=230-720 m g/dL & Higher Ghpn=122 mg/dL or greater Laboratory - Chemistry and C hemistry - challengeOrdered By: Malcolm Wray on 11-14-2024 AST [Catalytic activity/Vol] 24 U/L <38 [facility] Comment on above: Hemolysis present, R esults could be affected. Lipid Profileon 11-14-2024 CHOL:HDL 3.16 Normal [facility] Comment on above: Performed By: #### L 500.4050, L100.0500 #### [facility] [address] [place], [address] Cholesterol [Mass/Vol] 131 mg/dL Normal <=200 [facility] Comment on above: Result Comment: Chol esterol level, Desirable <200 mg/dL Borderline high cholesterol 200-239 mg/dL High cholesterol >=240 mg/dL Recommendations of the NCEP Adult Treatment Panel for the following risk-cutoff thresholds for the [place] Citizen population. Performed By: #### L 500.4050, L100.0500 #### [facility] [address] [place], [address] Cholesterol in HDL [Mass/Vol] 41 mg/dL Normal [facility] Comment on above: Result Comment: [place]ita onal Cholesterol Education Program (NCEP) guidelines: <40 mg/dL: Low HDL-cholesterol (major risk factor for CHD) >= 60 mg/dL: High HDL-cholesterol (negative risk factor for CHD) HDL-cholesterol is affected by a number of factors, e.g. smoking, exercise, hormones, sex and age. Performed By: #### L 500.4050, L100.0500 #### [facility] [address] [place], [address] Cholesterol in LDL [Mass/Vol] 44 mg/dL Normal [facility] Comment on above: Result Comment: Bord ljofde=421-035 mg/dL Higher Pecf=073 mg/dL or greater Performed By: #### L 500.4050, L100.0500 #### [facility] [address] [place], [address] Cholesterol in VLDL [Mass/Vol] 46 mg/dL High 5-40 [facility] Comment on above: Performed By: #### L 500.4050, L100.0500 #### [facility] [address] [place], [address] Triglyceride [Mass/Vol] 229 mg/dL High [facility] Comment on above: Result Comment: The drugs N-Acetylcysteine and Metamizole may falsely depress this assay. Normal range: <150 mg/dL Borderline High: 150-199 mg/dL High: 200-499 mg/dL Very High: >500 mg/dL Performed By: #### L 500.4050, L100.0500 #### [facility] [address] [place], [address] Potassium measurement (mass/ volume)Ordered By: Malcolm Wray on 11-14-2024 Potassium (Unsp spec) [Mass/Vol] 4.6 mmol/L 3.3-5.1 [facility] Comment on above: Hemolysis present, R esults could be affected. Screening total cholesterol/ high density lipoprotein (HDL) cholesterol ratioOrdered By: Malcolm Wray on 11-14-2024 Cholesterol.total/Choles terol in HDL [Mass ratio] 3.16 {ratio} [facility] Serum creatinine measurement (mass/volume)Ordered By: Malcolm Wray on 11-14-2024 Creatinine [Mass/Vol] 0.77 mg/dL 0.70-1.20 [facility] Serum globulin measurementOr dered By: Malcolm Wray on 11-14-2024 Globulin (S) [Mass/Vol] 2.9 g/dL 2.2-4.[address] [facility] Serum glucose measurement (m ass/volume)Ordered By: Malcolm Wray on 11-14-2024 Glucose [Mass/Vol] 150 mg/dL High 70-[address] [facility] Serum or plasma alanine barry otransferase (ALT) measurementOrdered By: Malcolm Wray on 11-14-2024 ALT [Catalytic activity/Vol] 28 U/L <47 [facility] Serum or plasma albumin paul urement (mass/volume)Ordered By: Malcolm Wray on 11-14-2024 Albumin [Mass/Vol] 4.3 g/dL 3.5-5.[address] [facility] Serum or plasma albumin/glob ulin mass ratioOrdered By: Malcolm Wray on 11-14-2024 Albumin/Globulin [Mass ratio] 1.5 {ratio} 0.9-2.4 [facility] Serum or plasma alkaline kendall sphatase measurementOrdered By: Malcolm Wray on 11-14-2024 ALP [Catalytic activity/Vol] 90 U/L 40-129 [facility] Serum or plasma calcium paul urement (mass/volume)Ordered By: Malcolm Wray on 11-14-2024 Calcium [Mass/Vol] 9.1 mg/dL 7.6-11.[address] [facility] Serum or plasma cholesterol in HDL measurement (mass/volume)Ordered By: Malcolm Wray on 11-14-2024 Cholesterol in HDL [Mass/Vol] 41 mg/dL >40 [facility] Comment on above: National Cholesterol Education Program (NCEP) guidelines:<40 mg/dL: Low HDL-cholesterol (major risk factor for CHD)>= 60 mg/dL: High HDL-cholesterol (negative risk factor for CHD)HDL-cholesterol is affected by a number of factors, e.g. smoking, exercise, hormones, sex and age. Serum or plasma cholesterol measurement (mass/volume)Ordered By: Malcolm Wray on 11-14-2024 Cholesterol [Mass/Vol] 131 mg/dL <201 [facility] Comment on above: Cholesterol level, D esirable <200 mg/dLBorderline high cholesterol 200-239 mg/dLHigh cholesterol >=240 mg/dLRecommendations of the NCEP Adult Treatment Panel for the following risk-cutoff thresholds for the [place] Citizen population. Serum or plasma urea nitroge n measurement (mass/volume)Ordered By: Malcolm Wray on 11-14-2024 Urea nitrogen [Mass/Vol] 19 mg/dL 4-19 [facility] Sodium levelOrdered By: Charli Wray on 11-14-2024 Sodium [Moles/Vol] 135 mmol/L 133-[address] [facility] Total proteinOrdered By: Lexii Wray on 11-14-2024 Protein [Mass/Vol] 7.2 g/dL 5.9-8.[address] [facility] Triglycerides measurementOrd ered By: Malcolm Wray on 11-14-2024 Triglyceride [Mass/Vol] 229 mg/dL High <[address] [facility] Comment on above: The drugs N-Acetylcy steine and Metamizole may falsely depress this assay. Normal range: <150 mg/dLBorderline High: 150-199 mg/dLHigh: 200-499 mg/dLVery High: >500 mg/dL Cardiology Visit Reporton Cardiology Visit Report [facility] [place], [place] [address] OFFICE VISIT Date of Service: 11/04/24 MR#: [id number] Acct: [id number] Name: RADHA LY Rep #: [id number] : 1970 Provider: Dr. Malcolm Wray MD Age/Sex: 54/M Location: [facility] Status: Signed HPI HPI History of Present Illness Details: This pleasant gentleman had presented to the hospital last month with an acute inferior STEMI. Emergent percutaneous revascularization was performed with placement of a 3.0 x 34 mm drug-eluting stent. Excellent results were noted. 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 Echocardiography the next day showed overall LVEF of 60%. Clinically patient is doing well. Denies any chest pains or shortness of breath. No palpitations. No orthopnea or PND. No ankle edema. Tolerating atorvastatin well and denies any muscle aches or pains. 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 Accompanied by: Daughter Is patient in pain?: No Allergies No Known Allergies Allergy (Verified 11/04/24 13:50) Medications ???Medication ???Instructions ???Recorded ???Confirmed ???Type fosinopril 10 mg tablet 10 mg PO DAILY #90 tabs 04/08/24 0 11/04/24 Rx glimepiride 2 mg tablet 2 mg PO DAILY #90 tabs 04/08/24 Rx metformin 500 mg tablet See Rx Instructions .Route 4 11/04/24 Rx .COMPLEX #180 tabs pioglitazone 30 mg tablet 30 mg PO DAILY #90 tabs 04/08/24 0 11/04/24 Rx aspirin 81 mg tablet,delayed 81 mg PO DAILY@0800 #0 tabs 11/04/24 Rx release atorvastatin 80 mg tablet (Lipitor) 80 mg PO DAILY #30 tabs 5 11/04/24 Rx carvedilol 3.125 mg tablet 3.125 mg PO BID #60 tabs 10/22/24 11/04/24 Rx clopidogrel 75 mg tablet 75 mg PO DAILY #30 tabs 10/22/24 0 11/04/24 Rx empagliflozin 10 mg tablet 10 mg PO DAILY #30 tabs 10/22/24 0 11/04/24 Rx (Jardiance) Ejection fraction %: 60 Have you fallen in the past year?: No [facility] Medical History Acute inferior myocardial infarction Biceps tendon tear Diabetes mellitus, type 2 Left ventricular systolic dysfunction (LVSD) Obesity (BMI 30.0-34.9) ST elevation (STEMI) myocardial infarction involving right coronary artery (09/30/24) Tobacco abuse Surgical History History of coronary artery stent placement (09/30/24) Family History Mother Diabetes Father Heart disease Social History Smoking Status: Former smoker Smokeless tobacco user: chewing tobacco how long ago did patient quit smokin07/25/17 alcohol intake: current alcohol intake frequency: holidays/special occasions only Alcohol type: beer substance use type: does not use what type of physical activity do you participate in: walking frequency: 1-2 times per week ROS Const Const: Positive for fatigue; Negative for weakness, headache(s) or weight gain ENT ENT: Positive for Nosebleed/epistaxis; Negative for headache(s), dizziness or balance problems Cardio Chest Pain: No Palpitations: No Edema: None Muscle aches with walking: None Resp Respiratory: Negative for SOB with activity, SOB at rest or SOB orthopnea SOB lying down GI GI: Negative nausea, vomiting or heartburn Musc Musc: Negative for muscle aches/ myalgia, muscle weakness, joint pain or balance problems Neuro Neuro: Negative for dizziness, lightheadedness, near syncope, syncope, headache(s) or weakness Endo Endo: Positive for fatigue Cardiology Exam Const Appearance: comfortable and no acute distress Nutritional Appearance: well nourished Neck Neck: no JVD Carotids: Negative bruit Chest Auscultation: Bilateral: Clear to Auscultation Cardio Rate: regular rate Rhythm: regular rhythm Heart sounds: S1 normal and S2 normal Neuro General: patient alert, patient awake and patient oriented x3 Extremities Lower Extremity Edema: None: Bilateral Supplemental Info Supplemental Information Echocardiogram 10/01/2024 Interpretation Summary Mild inferior hypokinesis. Overall LVEF estimated at 60%. Stage I diastolic dysfunction Right ventricular systolic pressure estimated to be 38 mmHg. 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 Normal [facility] Internal Medicine Office Vis iton 05-27-2025 Internal Medicine Office Visit [facility] [address] [place] [address] OFFICE VISIT Date of Service: 11/04/24 MR#: [id number] Acct: [id number] Name: RADHA LY Rep #: [id number] : 1970 Provider: Dr. 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 Accompanied by: Self Is patient in pain?: No Allergies No Known Allergies Allergy (Verified 11/04/24 11:07) Medications ???Medication ???Instructions ???Recorded ???Confirmed ???Type fosinopril 10 mg tablet 10 mg PO DAILY #90 tabs 04/08/24 0 11/04/24 Rx glimepiride 2 mg tablet 2 mg PO DAILY #90 tabs 04/08/24 Rx metformin 500 mg tablet See Rx Instructions .Route 4 11/04/24 Rx .COMPLEX #180 tabs pioglitazone 30 mg tablet 30 mg PO DAILY #90 tabs 04/08/24 0 11/04/24 Rx aspirin 81 mg tablet,delayed 81 mg PO DAILY@0800 #0 tabs 11/04/24 Rx release atorvastatin 80 mg tablet (Lipitor) 80 mg PO DAILY #30 tabs 5 11/04/24 Rx carvedilol 3.125 mg tablet 3.125 mg PO BID #60 tabs 10/22/24 11/04/24 Rx clopidogrel 75 mg tablet 75 mg PO DAILY #30 tabs 10/22/24 0 11/04/24 Rx empagliflozin 10 mg tablet 10 mg PO DAILY #30 tabs 10/22/24 0 11/04/24 Rx (Jardiance) Have you fallen in the past year?: No [facility] Medical History Biceps tendon tear Diabetes mellitus, type 2 ST elevation (STEMI) myocardial infarction involving right coronary artery (09/30/24) Tobacco abuse Obesity (BMI 30.0-34.9) Left ventricular systolic dysfunction (LVSD) Acute inferior myocardial infarction Surgical History History of coronary artery stent placement (09/30/24) Family History Mother Diabetes Father Heart disease Social History Smoking Status: Former smoker Smokeless tobacco user: chewing tobacco how long ago did patient quit smokin07/25/17 alcohol intake: current alcohol intake frequency: holidays/special occasions only Alcohol type: beer substance use type: does not use what type of physical activity do you participate in: walking frequency: 1-2 times per week HPI HPI Chief Complaint: sleep apnea Details: RADHA LY, is a 54 M who presents to the office today for a discussion on sleep apnea. I received a form from his provider of home medical devices that I needed to fill out justification fo r his CPAP. I looked back through his hospital discharge summary and really could not find a diagnosis that addressed this problem. He says they said that his oxygen dropped below but there is no documentation in the discharge summary. ROS Const Constitutional: No body ache, excessive sweating, fatigue, fever(s), frequent falls, headache(s), snoring, weakness, weight change, sleep problems or change in appetite Eyes Eyes: No blurry vision, change in vision, eye pain or Light sensitivity ENT ENT: No abnormal hearing, ear or mastoid pain, tinnitus, nasal congestion, headache(s), neck pain or sore throat Resp Respiratory: No cough, shortness of breath, snoring or wheezing Cardio Cardiology: No chest pain at rest, chest pain with exertion, excessive sweating, shortness of breath, dyspnea on exertion, lightheadedness, orthopnea or palpitations Gastro GI: No abdominal pain, change in bowel habits, constipation, cramping, diarrhea, nausea/dyspepsia or vomiting Genitourinary Male: No burning urination, painful urination, urinary incontinence, urinary frequency or blood in urine Musc Musculoskeletal: No abnormal gait, joint pain, back pain, limited range of motion, neck pain, numbness, stiffness, tingling or Arthritis Skin Skin: No dry skin, redness, lesions, itchy eyes, rash or wounds Neuro Neurology: No abnormal gait, abnormal hearing, abnormal speech, dizziness, weakness, frequent falls, headache(s), memory loss, numbness or tingling Psych Psychiatric: No anxiety, No change in appetite, No depression, No memory loss and No Thoughts of harming yourself/Others Endo Endocrine: No cold intolerance, excessive sweating, fatigue, flushing, heat intolerance, increased thirst/drinki (more content not included)... Normal [facility] Internal Medicine Office Vis itodonny 10-22-2024 Internal Medicine Office Visit [facility] [place] [address] [place] [address] OFFICE VISIT Date of Service: 10/22/24 MR#: [id number] Acct: [id number] Name: LYRADHA Ayan Rep #: [id number] : 1970 Provider: Dr. Ramses patterson, DO Age/Sex: 54/M Location: [facility] Status: Signed Intake Vital Signs 10/02/24 10:00 10/08/24 08:30 10/22/24 14:31 Height 5 ft 7 in 5 ft 7 in 5 ft 7 in Weight: 214 lb BMI 33.5 BP 130/62 H Blood Pressure Location Lt brachial Position Sitting Respiration 18 Pulse 83 Pulse Source Monitor Temp 98.2 F Temp Source Temporal Pulse Oximetry (%) 95 Oxygen Delivery Method room air Intake Visit Reasons: 2 W FU Chief Complaint: 2 W FU Is patient in pain?: No Allergies No Known Allergies Allergy (Verified 10/22/24 14:33) Medications ???Medication ???Instructions ???Recorded ???Confirmed ???Type fosinopril 10 mg tablet 10 mg PO DAILY #90 tabs 04/08/24 0 5/14/25 Rx glimepiride 2 mg tablet 2 mg PO DAILY #90 tabs 04/08/24 Rx metformin 500 mg tablet See Rx Instructions .Route 4 10/22/24 Rx .COMPLEX #180 tabs pioglitazone 30 mg tablet 30 mg PO DAILY #90 tabs 04/08/24 0 10/22/24 Rx aspirin 81 mg tablet,delayed 81 mg PO DAILY@0800 #0 tabs 10/22/24 Rx release atorvastatin 80 mg tablet (Lipitor) 80 mg PO DAILY #30 tabs 5 10/22/24 Rx carvedilol 3.125 mg tablet 3.125 mg PO BID #60 tabs 10/02/24 10/22/24 Rx clopidogrel 75 mg tablet 75 mg PO DAILY #30 tabs 10/02/24 0 10/22/24 Rx empagliflozin 10 mg tablet 10 mg PO DAILY #30 tabs 10/02/24 0 10/22/24 Rx (Jardiance) [facility] Medical History (Updated 10/22/24 @ 14:[address] Ramses Earl, ) ST elevation (STEMI) myocardial infarction involving right coronary artery (09/30/24) Tobacco abuse Obesity (BMI 30.0-34.9) Left ventricular systolic dysfunction (LVSD) Acute inferior myocardial infarction Hypertension Diabetes Family History Mother Diabetes Father Heart disease Social History Smoking Status: Former smoker Smokeless tobacco user: chewing tobacco how long ago did patient quit smokin07/25/17 alcohol intake: current alcohol intake frequency: holidays/special occasions only Alcohol type: beer substance use type: does not use what type of physical activity do you participate in: walking frequency: 1-2 times per week HPI HPI Chief Complaint: 2 W FU Details: RADHA LY, is a 54 M who presents to the office today for a follow-up after he had a STEMI and had angioplasty at [facility]. He says he feels well but he had about 8 to 12 hours of chest pain before he finally showed up to the emergency room. He says his blood sugars are much better with the addition of Jardiance. ROS Const Constitutional: No body ache, chills, excessive sweating, fatigue, fever(s), frequent falls, headache(s), snoring, weight change, sleep problems, abnormal sleep pattern or change in appetite Eyes Eyes: No blurry vision, change in vision, eye pain or Light sensitivity ENT ENT: No abnormal hearing, ear or mastoid pain, tinnitus, nasal congestion, headache(s), neck pain or sore throat Resp Respiratory: No cough, shortness of breath, snoring or wheezing Cardio Cardiology: No chest pain at rest, chest pain with exertion, excessive sweating, shortness of breath, dyspnea on exertion, lightheadedness, orthopnea or palpitations Gastro GI: No abdominal pain, change in bowel habits, constipation, cramping, diarrhea, nausea/dyspepsia or vomiting Genitourinary Male: No burning urination, painful urination, urinary incontinence or urinary frequency Musc Musculoskeletal: No abnormal gait, joint pain, back pain, limited range of motion, neck pain, numbness or tingling Skin Skin: No dry skin, redness, lesions, itchy eyes, rash or wounds Neuro Neurology: No abnormal gait, abnormal hearing, frequent falls, headache(s), memory loss, numbness or tingling Psych Psychiatric: No abnormal sleep pattern, No anxiety, No change in appetite, No irritability, No memory loss and No Thoughts of harming yourself/Others Endo Endocrine: No cold intolerance, excessive sweating, fatigue, flushing, heat intolerance, increased thirst/drinking, increased hunger or weight change Aller/Imm Allergy/Immunologic: No itchy eyes, seasonal allergy symptoms, hives or wheezing Nehemias/Lymp Hematologic/Lymphati c: No easy bleeding, easy bruising, enlarged lymph nodes or other Exam Const General: cooperative and healthy appearing Nutritional Appearance: average body habitus [facility] Head: normal to inspection Ears: hearing grossly normal bilaterally Eyes General: appearance normal, both e (more content not included)... Normal [facility] Laboratory - Hematology and Cell countsOrdered By: Ramses Earl on 10-22-2024 HbA1c (Bld) [Mass fraction] 9.0 % High 4.2-6.3 [facility] CR - History AND Physicalon 10-08-2024 CR - History & Physical [facility] [address] [place] [address] CR - History Physical MR#: [id number] Acct: [id number] Name: RADHA LY Rep #: [id number] : 1970 54 From: Enrico Adame BS, RVT PCP: Dr. Ramses Earl, DO DOS: 10/08/24 CR - History Physical General Arrival date:: 10/08/24 Arrival time:: 08:19 Date of Referral:: 10/03/24 Date of CR Evaluation:: 10/08/24 Referring Physician: Dr. Wray Primary Diagnosis: PCI w/stent History of Present Cardiac Event Onset Date PTCA or coronary stenting:: Yes (onset 09/30/24) Vessel: RCA Medications Ambulatory Orders ???Medication ???Instructions ???Recorded fosinopril 10 mg tablet 10 mg PO DAILY #90 tabs 04/08/24 glimepiride 2 mg tablet 2 mg PO DAILY #90 tabs 04/08/24 metformin 500 mg tablet See Rx Instructions .Route 4 .COMPLEX #180 tabs pioglitazone 30 mg tablet 30 mg PO DAILY #90 tabs 04/08/24 aspirin 81 mg tablet,delayed 81 mg PO DAILY@0800 #0 tabs release atorvastatin 80 mg tablet (Lipitor) 80 mg PO DAILY #30 tabs 5 carvedilol 3.125 mg tablet 3.125 mg PO BID #60 tabs 10/02/24 clopidogrel 75 mg tablet 75 mg PO DAILY #30 tabs 10/02/24 empagliflozin 10 mg tablet 10 mg PO DAILY #30 tabs 10/02/24 (Jardiance) Allergies Allergies No Known Allergies Allergy (Verified 09/30/24 21:25) Sleep Disorder Evaluation Hx of Sleep Apnea: No Do you snore loudly (louder than talking or can be heard through closed doors)?: Yes Do you often feel tired/ fatigued/ sleepy during daytime?: No Has anyone observed you stop breathing during sleep?: No History of Hypertension (for STOP score): Yes STOP Results: Positive Advanced Directives Advanced Directives Do you have a Healthcare Power of Transportation Dispatcher?: No Living Will: No Advance Directives Information Provided: No Advance Directives on File: No DNR Order?:: No Past Medical History Covid-19 Screening Physicial Symptoms Other Clinical Concerns Exposure Risk Pertinent Comorbidities Has a serious heart condition:: Yes Diabetic:: Yes Past Medical Illness Past Medical History (Updated 10/01/24 @ 08:02 by Micha Gipson) Hypertension I10 His blood pressure is in adequate control. Diabetes E11.9 Family History Summary Family History Mother Diabetes Father Heart disease Social History Smoking History Smoking Status: Former smoker Years Smokin Packs Smoked per Day: 0 (unsure of how many packs and stopped in the late ) Hx Tobacco Use: Yes (chews tobacco) Alcohol Use Alcohol Usage: Yes (occas) Substance Abuse Hx Substance Use: No Occupation Occupation (List type of work in comments):: Employed Hours worked per day:: 10 Social Environment Status Marital Status: Current Living Arrangements Living Environment:: Family Children How many children do you have?: 4 Do any of your children live nearby?: Yes Safety Do you feel safe in your surroundings?: Yes Assistance Do you need any assistance at home?: no Review of Systems Review of Systems Hints Review of Present Symptoms: Reports Fatigue, Appetite - Normal and Sleep - Normal; Denies Shortness of Breath at Rest, Shortness of Breath with Exertion, PVD, Operative Discomfort, Angina, Wound Heali ng, Dizziness/Lightheade dness, Heart Arrhythmia/Irregular ities, Appetite - Special Diet or Sexual Changes Pain Is Patient Pain Free?: Yes Risk Factor Assessment Chief Complaint Chief Complaint: PCI w/stent Vital Signs Pulse Ox: 100 Blood Pressure: 140/80 Pulse Pulse Rate: 77 Pulse Rhythm: Regular Hypertension How long have you been treated?: 20 years Blood Pressure Sitting - Right Arm: 140/80 Stress Stress: Work-related Diabetes Diabetic History: Type II Obesity Height: 5 ft 7 in Weight:: 218 lb Weight in Pounds: 218.0 lbs Body Mass Index (BMI): 34.1 Nutritional Referral for Obesity: No Physical Inactivity Physical Inactivity: Reg Exercise 30 min/day Risk Stratification Risk Guidelines: Moderate Risk: Risk Factor for Dyslipidemia, Risk Factor for Sedentary Lifestyle and Risk Factor for Depression and Highest Risk: Risk Factor for Smoking, Risk Factor for Diabetes, Risk Factor for Obesity and Risk Factor for Hypertension For Smoking Smoking Risk Guidelines For Dyslipidemia Dyslipidemia Risk Guidelines For Diabetes Mellitus Diabetes Risk Guidelines For Obesity/Overweight Obesity/Overweight Risk Guidelines For Hypertension Hypertension Risk Guidelines For Sedentary Lifestyle Sedentary Lifestyle Risk Guidelines For Depression Depression Risk Guidelines Family History Family History Mother Diabetes Father Heart disease Motivation Motiva (more content not included)... Normal [facility] Bedside Glucoseon 10-02-2024 FINGERSTICK GLU 169 mg/dL High 74-106 [facility] Comment on above: Result Comment: ELYSE GEMENT OF PATIENT CARE PER NURSING PROTOCOL Performed By: #### L 501.080 #### [facility] [address] [place], [address] FINGERSTICK GLU 245 mg/dL High -106 [facility] Comment on above: Result Comment: ELYSE GEMENT OF PATIENT CARE PER NURSING PROTOCOL Performed By: #### L 500.4050, L100.0500 #### [facility] [address] [place], [address] FINGERSTICK GLU 240 mg/dL High [facility]106 [facility] Comment on above: Result Comment: ELYSE GEMENT OF PATIENT CARE PER NURSING PROTOCOL Performed By: #### L 501.4021, L300.4310, L300.3900, L500.2500, L100.0100 #### [facility] [address] [place], [address] Discharge Instructionon 09-10 Discharge Instruction [facility] Medical Records Department [address] [place] [address] Instructions for Home/Discharge Instructions 10/02/24 0948 MR#: [id number] Acct: [id number] Name: RADHA LY Rep #: [id number] : 1970 54 From: Wilmer Silver DO PCP: Dr. Ramses Earl, DO Status:ADM IN Discharge Instructions Diet Discharge Diet: 1800 Calorie Control Diet DC O2, CPAP, BIPAP needs Home O2 Discharge instructions: No Dressing / Incision Discharge Activity: Return to Normal Activity Weight Bearing Status: Full weight bearing Follow Up Care Test Results: Test results from this visit will be discussed in further detail at your follow-up appointment, if applicable. Discharge Plan Admission Admit Date/Time: 09/30/24 23:09 Primary Reason for Your Visit: Myocardial infarction Attending Provider: Wilmer Silver Primary Care Provider: Ramses Earl Consulting Providers: Polo Abbott Discharge Orders/Prescriptions Prescriptions: New aspirin 81 mg Tablet,Delayed Release (Dr/Ec) 81 mg PO DAILY@0800 Qty: 0 0RF carvedilol 3.125 mg Tablet 3.125 mg PO BID Qty: 60 0RF atorvastatin [Lipitor] 80 mg tablet 80 mg PO DAILY Qty: 30 0RF clopidogrel 75 mg Tablet 75 mg PO DAILY Qty: 30 0RF Jardiance 10 mg Tablet 10 mg PO DAILY Qty: 30 0RF Continued fosinopril 10 mg tablet 10 mg PO DAILY Qty: 90 3RF pioglitazone 30 mg tablet 30 mg PO DAILY Qty: 90 1RF metformin 500 mg tablet See Rx Instructions .ROUTE .COMPLEX Qty: 180 1RF Dose Instruction: TAKE 1 TABLET BY MOUTH TWICE DAILY Rx Instructions: TAKE 1 TABLET BY MOUTH TWICE DAILY glimepiride 2 mg tablet 2 mg PO DAILY Qty: 90 1RF Referrals / Follow Up: Malcolm Wray MD [Med Staff - Active Staff] - See Referral Note (in 4 weeks-office will contact you) Ramses Earl DO [Primary Care Provider] - Within 2 Weeks Disposition Disposition (needs filled in before D/C Order can be placed): Home, Self Care 10/02/24 1000 Wilmer Silver DO CC: Dr. Polo Abbott DO; Dr. Ramses Earl DO Signed ADDENDUM by Dr. Wilmer Silver DO on 10/02/24 at 1118 NO LIFTING ABOVE 10 POUNDS FOR THREE DAYS 10/02/24 1118 Wilmer Silver DO cc: Dr. Polo Abbott DO; Dr. Ramses Earl DO * Signed Normal [facility] Glucose measurement at bedsi deOrdered By: Wilmer Silver on 10-02-2024 Glucose [Mass/Vol] 169 mg/dL High 74-[address] [facility] Comment on above: MANAGEMENT OF PATIEN T CARE PER NURSING PROTOCOL 12 Lead EKGon 10-01-2024 12 Lead EKG [facility] Cardiovascular Services [address] [place] [address] 12 Lead EKG 10/01/24 0523 MR#: [id number] Acct: [id number] Name: RADHA LY Rep #: [id number] : 1970 54 From: Deshawn Cormier MD Attending Dr: Dr. Wilmer Silver DO Status: A DM IN Ordering Dr: Malcolm Wray MD Date: 10/01/24 Location: ICU Sex: M C Admitted: 09/30/24 Test Reason : AM EKG Blood Pressure : */* mmHG Vent. Rate : 60 BPM Atrial Rate : 60 BPM P-R Int : 178 ms QRS Dur : 100 ms QT Int : 434 ms P-R-T Axes : 33 -50 73 degrees QTcB Int : 434 ms Normal sinus rhythm Left anterior fascicular block Minimal voltage criteria for LVH, may be normal variant ( Isaias product ) Inferior infarct , age undetermined Abnormal ECG When compared with ECG of 01-Oct-2024 01:01, MANUAL COMPARISON REQUIRED DATA IS UNCONFIRMED Confirmed by GENIA SEN, DESHAWN ([id number]), make up editor RUBY LASSITER ([id number]) on 10/01/2024 2:06:21 PM Referred By: Malcolm Wray Confirmed By: DESHAWN CORMIER MD 10/01/24 1406 Date Deshawn Cormier MD CC: Dr. Malcolm Wray MD; Dr. Ramses Earl DO; Dr. Wilmer Silver DO Signed Normal [facility] ACT Activated Clotting Timeo n 10-01-2024 ACTk CLOT TIME 153 sec High 74-137 [facility] Comment on above: Performed By: #### L 9100.0100 #### [facility] [address] [place], [address] Anion gap in Serum or Plasma Ordered By: Malcolm Wray on 10-01-2024 Anion gap [Moles/Vol] 14 mmol/L 5-15 [facility] Automated blood erythrocyte countOrdered By: Malcolm Wray on 10-01-2024 RBC (Bld) [#/Vol] 4.19 10*6/uL Low 4.6-6.2 [facility] Comment on above: Performed By: #### L 500.4050, L100.0500 #### [facility] [address] [place], [address] Automated blood hematocrit ( percentage)Ordered By: Malcolm Wray on 10-01-2024 Hematocrit (Bld) [Volume fraction] 37.5 % Low 40-54 [facility] Comment on above: Performed By: #### L 500.4050, L100.0500 #### [facility] [address] [place], [address] BUN/creatinine ratioOrdered By: Malcolm Wray on 10-01-2024 Urea nitrogen/Creatinine [Mass ratio] 21.9 mg/mg High 10-20 [facility] Bedside Glucoseon 10-01-2024 FINGERSTICK GLU 265 mg/dL High 74-106 [facility] Comment on above: Result Comment: ELYSE GEMENT OF PATIENT CARE PER NURSING PROTOCOL Performed By: #### L 501.4021, L300.4310, L300.3900, L500.2500, L100.0100 #### [facility] [address] [place], [address] FINGERSTICK GLU 285 mg/dL High 74-106 [facility] Comment on above: Result Comment: ELYSE GEMENT OF PATIENT CARE PER NURSING PROTOCOL Performed By: #### L 500.4050, L100.0500 #### [facility] [address] [place], [address] FINGERSTICK GLU 275 mg/dL High [address] Comment on above: Result Comment: Dr Louis hilliard Followed Insulin Given MANAGEMENT OF PATIENT CARE PER NURSING PROTOCOL Performed By: #### L 500.4050, L100.0500 #### [facility] [address] [place], [address] FINGERSTICK GLU 266 mg/dL High 74-106 [facility] Comment on above: Result Comment: Dr Louis hilliard Followed MANAGEMENT OF PATIENT CARE PER NURSING PROTOCOL Performed By: #### L 500.4050, L100.0500 #### [facility] [address] [place], [address] Bilirubin, totalOrdered By: Malcolm Wray on 10-01-2024 Bilirubin [Mass/Vol] 0.38 mg/dL Normal 0.00-1.30 [facility] Comment on above: Performed By: #### L 500.4050, L100.0500 #### [facility] [address] [place], [address] CBC-Complete Blood Cnt No Di ffon 10-01-2024 RDW SD 39.9 fl Normal 35.1-43.9 [facility] Comment on above: Performed By: #### L 500.4050, L100.0500 #### [facility] [address] [place], [address] Carbon dioxide, total [Moles /volume] in Central venous bloodOrdered By: Malcolm Wray on 10-01-2024 CO2 [Moles/Vol] 21.9 mmol/L Normal 21.0-32.0 [facility] Comment on above: Performed By: #### L 500.4050, L100.0500 #### [facility] [address] [place], [address] Chloride assayOrdered By: Delonte Wray on 10-01-2024 Chloride [Moles/Vol] 96 mmol/L Low 98-108 [facility] Comment on above: Performed By: #### L 500.4050, L100.0500 #### [facility] [address], [address] Comprehensive Metabolic Prof ilon 10-01-2024 ALK PHOS 74 U/L Normal 40-129 [facility] Comment on above: Performed By: #### L 500.4050, L100.0500 #### [facility] [address] [place], [address] BUN/CRE 21.9 RATIO High 10-20 [facility] Comment on above: Performed By: #### L 500.4050, L100.0500 #### [facility] [address] [place], [address] ECRCL 104.93 ml/min Normal 50-250 [facility] Comment on above: Performed By: #### L 500.4050, L100.0500 #### [facility] [address] [place], [address] GAP 14 Normal 5-15 [facility] Comment on above: Performed By: #### L 500.4050, L100.0500 #### [facility] [address] [place], [address] Potassium [Moles/Vol] 4.5 mmol/L Normal 3.3-5.1 [facility] Comment on above: Performed By: #### L 500.4050, L100.0500 #### [facility] [address] [place], [address] T PROT 6.5 g/dL Normal 5.9-8.4 [facility] Comment on above: Performed By: #### L 500.4050, L100.0500 #### [facility] [address] [place], [address] Comprehensive Metabolic Prof ilOrdered By: Malcolm Wray on 10-01-2024 AST [Catalytic activity/Vol] 87 U/L High <=37 [facility] Comment on above: Performed By: #### L 500.4050, L100.0500 #### [facility] [address] [place], [address] Erythrocyte distribution wid th ratioOrdered By: Malcolm Wray on 10-01-2024 Erythrocyte distribution width (RBC) [Ratio] 12.2 % Normal 11.6-14.6 [facility] Comment on above: Performed By: #### L 500.4050, L100.0500 #### [facility] [address] [place], [address] Erythrocyte distribution wid th standard deviationOrdered By: Malcolm Wray on 10-01-2024 Erythrocyte distribution width (RBC) [Ratio] 39.9 fl 35.1-43.9 [facility] Glomerular filtration rate ( GFR) estimation/1.73 sq m using serum, plasma, or whole bOrdered By: Malcolm Wray on 10-01-2024 GFR/1.73 sq M.predicted among non-blacks MDRD (S/P/Bld) [Vol rate/Area] 102 mL/min/{1.73_m2} Normal >60 [facility] Comment on above: mL/min/1.73m2 CKD-EP I Creatinine Equation (2020) Result Comment: mL/m in/1.73m2 CKD-EPI Creatinine Equation (2020) Performed By: #### L 500.4050, L100.0500 #### [facility] [address] [place], [address] Hemoglobin measurementOrdere d By: Malcolm Wray on 10-01-2024 Hemoglobin (Bld) [Mass/Vol] 13.3 g/dL Normal 13.0-16.5 [facility] Comment on above: Performed By: #### L 500.4050, L100.0500 #### [facility] [address] [place], [address] L499.0042on 10-01-2024 Trop T High Sen 1270 ng/L Invalid Interpretation Code <=22 [facility] Comment on above: Result Comment: Crit ical Result(s) Called at: 0127 by:??IMMANUEL HAVEN TO JEANE MARTINEZ Results read back by same. Performed By: #### L 499.0042 #### [facility] [address] [place], [address] L499.0043on 10-01-2024 Trop T High Sen 1494 ng/L Invalid Interpretation Code <=22 [facility] Comment on above: Result Comment: Crit ical Result(s) Called at: 0550 by:??IMMANUEL HAVEN TO PANCHITO SALVADOR Results read back by same. Performed By: #### L 501.4021, L300.4310, L300.3900, L500.2500, L100.0100 #### [facility] [address] [place], [address] MCV (mean corpuscular volume ) determinationOrdered By: Malcolm Wray on 10-01-2024 MCV (RBC) [Entitic vol] 89.5 fL Normal 80-[address] [facility] Comment on above: Performed By: #### L 500.4050, L100.0500 #### [facility] [address] [place], [address] MR/QUALITYon 10-01-2024 MR/QUALITY [facility] Medical Records Department [address] [place] [address] Quality Report 10/01/24 0800 MR#: [id number] Acct: [id number] Name: RADHA LY Rep #: [id number] : 1970 54 From: Micha Gipson PCP: Dr. Ramses Earl, DO Status:ADM IN Y Location: ICU ICU03-1 STEMI STEMI ED Door Time / Other REG STEMI EKG Time (1) ST elevation (STEMI) myocardial infarction involving right coronary artery: Acute 09/30/24 21:24 Balloon/Aspiration Date-Time Date of Balloon/Aspiration:: 09/30/24 Time of Balloon/Aspiration:: 22:29 10/01/24 0814 Date Micha Wong Signature (if applicable): Date CC: Signed Normal [facility] Mean corpuscular hemoglobin (MCH) determinationOrdered By: Malcolm Wray on 10-01-2024 MCH (RBC) [Entitic mass] 31.7 pg Normal 27.0-32.0 [facility] Comment on above: Performed By: #### L 500.4050, L100.0500 #### [facility] [address] [place], [address] Mean corpuscular hemoglobin concentration (MCHC) determinationOrdered By: Malcolm Wray on 10-01-2024 MCHC (RBC) [Mass/Vol] 35.5 g/dL Normal 32-36 [facility] Comment on above: Performed By: #### L 500.4050, L100.0500 #### [facility] [address] [place], [address] Mean platelet volume determi nationOrdered By: Malcolm Wray on 10-01-2024 Platelet mean volume (Bld) [Entitic vol] 9.7 fL Normal 6.2-12.0 [facility] Comment on above: Performed By: #### L 500.4050, L100.0500 #### [facility] [address] [place], [address] Platelet countOrdered By: Delonte Wray on 10-01-2024 Platelets (Bld) [#/Vol] 252 10*3/uL Normal 150-450 [facility] Comment on above: Performed By: #### L 500.4050, L100.0500 #### [facility] [address] [place], [address] Potassium measurement (mass/ volume)Ordered By: Malcolm Wray on 10-01-2024 Potassium (Unsp spec) [Mass/Vol] 4.5 mmol/L 3.3-5.1 [facility] Serum creatinine measurement (mass/volume)Ordered By: Malcolm Wray on 10-01-2024 Creatinine [Mass/Vol] 0.88 mg/dL Normal 0.70-1.20 [facility] Comment on above: Performed By: #### L 500.4050, L100.0500 #### [facility] [address] [place], [address] Serum globulin measurementOr dered By: Malcolm Wray on 10-01-2024 Globulin (S) [Mass/Vol] 2.6 g/dL Normal 2.2-4.2 [facility] Comment on above: Performed By: #### L 500.4050, L100.0500 #### [facility] [address] [place], [address] Serum glucose measurement (m ass/volume)Ordered By: Malcolm Wray on 10-01-2024 Glucose [Mass/Vol] 333 mg/dL High 70-[address] [facility] Comment on above: Performed By: #### L 500.4050, L100.0500 #### [facility] [address] [place], [address] Serum or plasma alanine barry otransferase (ALT) measurementOrdered By: Malcolm Wray on 10-01-2024 ALT [Catalytic activity/Vol] 27 U/L Normal <=46 [facility] Comment on above: Performed By: #### L 500.4050, L100.0500 #### [facility] [address] [place], [address] Serum or plasma albumin paul urement (mass/volume)Ordered By: Malcolm Wray on 10-01-2024 Albumin [Mass/Vol] 3.9 g/dL Normal 3.5-5.[address] [facility] Comment on above: Performed By: #### L 500.4050, L100.0500 #### [facility] [address] [place], [address] Serum or plasma albumin/glob ulin mass ratioOrdered By: Malcolm Wray on 10-01-2024 Albumin/Globulin [Mass ratio] 1.5 {ratio} Normal 0.9-2.4 [facility] Comment on above: Performed By: #### L 500.4050, L100.0500 #### [facility] [address] [place], [address] Serum or plasma alkaline kendall sphatase measurementOrdered By: Malcolm Wray on 10-01-2024 ALP [Catalytic activity/Vol] 74 U/L 40-129 [facility] Serum or plasma calcium paul urement (mass/volume)Ordered By: Malcolm Wray on 10-01-2024 Calcium [Mass/Vol] 8.7 mg/dL Normal 7.6-11.[address] [facility] Comment on above: Performed By: #### L 500.4050, L100.0500 #### [facility] [address] [place], [address] Serum or plasma urea nitroge n measurement (mass/volume)Ordered By: Malcolm Wray on 10-01-2024 Urea nitrogen [Mass/Vol] 19 mg/dL Normal 4-19 [facility] Comment on above: Performed By: #### L 500.4050, L100.0500 #### [facility] [address] [place], [address] Sodium levelOrdered By: Charli Wray on 10-01-2024 Sodium [Moles/Vol] 131 mmol/L Low 133-[address] [facility] Comment on above: Performed By: #### L 500.4050, L100.0500 #### [facility] [address] [place], [address] Total proteinOrdered By: Lexii Wray on 10-01-2024 Protein [Mass/Vol] 6.5 g/dL 5.9-8.[address] [facility] Troponin T.cardiac [Mass/vol ume] in Serum or Plasma by High sensitivity methodOrdered By: Holden Will on 10-01-2024 Troponin T.cardiac High sensitivity method [Mass/Vol] 1494 ng/L High <22 [facility] Comment on above: Critical Result(s) C alled at: 0550 by: IMMANUEL LUNA TO PANCHITO SALVADOR Results read back by same. Troponin T.cardiac High sensitivity method [Mass/Vol] 1270 ng/L High <22 [facility] Comment on above: Critical Result(s) C alled at: 0127 by: IMMANUEL MARTINEZ Results read back by same. White blood cell (WBC) count Ordered By: Malcolm Wray on 10-01-2024 WBC (Bld) [#/Vol] 13.0 10*3/uL High 4.4-11.0 [facility] Comment on above: Performed By: #### L 500.4050, L100.0500 #### [facility] [address] [place], [address] 12 Lead EKGon 09-30-2024 12 Lead EKG [facility] Cardiovascular Services [address] [place] [address] 12 Lead EKG 10/01/24 0101 MR#: [id number] Acct: [id number] Name: RADHA LY Rep #: [id number] : 1970 54 From: Deshawn Cormier MD Attending Dr: Dr. Wilmer Silver, DO Status: A DM IN Ordering Dr: Holden Will MD Date: 09/30/24 Location: ICU Sex: M C Admitted: 09/30/24 Test Reason : Blood Pressure : */* mmHG Vent. Rate : 60 BPM Atrial Rate : 60 BPM P-R Int : 180 ms QRS Dur : 106 ms QT Int : 418 ms P-R-T Axes : 34 -46 49 degrees QTcB Int : 418 ms Poor data quality, interpretation may be adversely affected Normal sinus rhythm Left anterior fascicular block Minimal voltage criteria for LVH, may be normal variant ( [place] product ) Inferior infarct , age undetermined Possible Anterior infarct , age undetermined Abnormal ECG When compared with ECG of 30-Sep-2024 21:33, MANUAL COMPARISON REQUIRED DATA IS UNCONFIRMED Confirmed by DESHAWN CORMIER MD ([id number]), make up editor RUBY LASSITER ([id number]) on 10/01/2024 2:06:30 PM Referred By: Malcolm Wray Confirmed By: DESHAWN CORMIER MD 10/01/24 1406 Date Deshawn Cormier MD CC: Dr. Malcolm Wray MD; Dr. Ramses Earl DO; Dr. Holden Will MD; Dr. Wilmer Silver DO Signed Normal [facility] ACT Activated Clotting Timeo n 09-30-2024 ACTk CLOT TIME 256 sec High 74-137 [facility] Comment on above: Performed By: #### L 500.4050, L100.0500 #### [facility] [address] [place], [address] ACTk CLOT TIME 187 sec High 74-137 [facility] Comment on above: Performed By: #### L 500.4050, L100.0500 #### [facility] [address] [place], [address] Absolute lymphocyte countOrd ered By: Holden Will on 09-30-2024 Lymphocytes Auto (Unsp spec) [#/Vol] 1.86 10*3/uL 0.83-4.51 [facility] Absolute neutrophil countOrd ered By: Holden Will on 09-30-2024 Neutrophils (Bld) [#/Vol] 10.6 10*3/uL High 2.0-7.7 [facility] Activated partial thrombopla stin time (aPTT) in platelet poor plasma by coagulation aOrdered By: Holden Will on 09-30-2024 aPTT Coag (PPP) [Time] 23.4 s Low 24.1-36.2 [facility] Automated lymphocyte count a s percentage of total leukocytesOrdered By: Holden Will on 09-30-2024 Lymphocytes/100 WBC Auto (Unsp spec) 13.7 % Low 19-41 [facility] Basic Metabolic Profile (BMP )on 09-30-2024 BUN/CRE 13.0 RATIO Normal 10-20 [facility] Comment on above: Performed By: #### L 501.4021, L300.4310, L300.3900, L500.2500, L100.0100 #### [facility] [address] [place], [address] Calcium [Mass/Vol] 9.2 mg/dL Normal 7.6-11.[address] [facility] Comment on above: Performed By: #### L 501.4021, L300.4310, L300.3900, L500.2500, L100.0100 #### [facility] [address] [place], [address] Chloride [Moles/Vol] 95 mmol/L Low 98-108 [facility] Comment on above: Performed By: #### L 501.4021, L300.4310, L300.3900, L500.2500, L100.0100 #### [facility] [address] [place], [address] CO2 [Moles/Vol] 21.8 mmol/L Normal 21.0-32.0 [facility] Comment on above: Performed By: #### L 501.4021, L300.4310, L300.3900, L500.2500, L100.0100 #### [facility] [address] [place], [address] Creatinine [Mass/Vol] 1.08 mg/dL Normal 0.70-1.20 [facility] Comment on above: Performed By: #### L 501.4021, L300.4310, L300.3900, L500.2500, L100.0100 #### [facility] [address] [place], [address] ECRCL 86.65 ml/min Normal 50-250 [facility] Comment on above: Performed By: #### L 501.4021, L300.4310, L300.3900, L500.2500, L100.0100 #### [facility] [address] [place], [address] GAP 13 Normal 5-15 [facility] Comment on above: Performed By: #### L 501.4021, L300.4310, L300.3900, L500.2500, L100.0100 #### [facility] [address] [place], [address] GFR/1.73 sq M.predicted among non-blacks MDRD (S/P/Bld) [Vol rate/Area] 81 mL/min/{1.73_m2} Normal >60 [facility] Comment on above: Result Comment: mL/m in/1.73m2 CKD-EPI Creatinine Equation (2020) Performed By: #### L 501.4021, L300.4310, L300.3900, L500.2500, L100.0100 #### [facility] [address] [place], [address] Glucose [Mass/Vol] 342 mg/dL High 70-[address] [facility] Comment on above: Performed By: #### L 501.4021, L300.4310, L300.3900, L500.2500, L100.0100 #### [facility] [address] [place], [address] Potassium [Moles/Vol] 4.6 mmol/L Normal 3.3-5.1 [facility] Comment on above: Performed By: #### L 501.4021, L300.4310, L300.3900, L500.2500, L100.0100 #### [facility] [address] [place], [address] Sodium [Moles/Vol] 130 mmol/L Low 133-[address] [facility] Comment on above: Performed By: #### L 501.4021, L300.4310, L300.3900, L500.2500, L100.0100 #### [facility] [address] [place], [address] Urea nitrogen [Mass/Vol] 14 mg/dL Normal 4-19 [facility] Comment on above: Performed By: #### L 501.4021, L300.4310, L300.3900, L500.2500, L100.0100 #### [facility] [address] [place], [address] Basophil percentageOrdered B y: Holden Will on 09-30-2024 Basophils/100 WBC (Bld) 0.3 % 0-[address] [facility] CBC W/Diff, Automatedon 09-10 Absolute Lymph 1.86 X10 3/uL Normal 0.83-4.51 [facility] Comment on above: Performed By: #### L 501.4021, L300.4310, L300.3900, L500.2500, L100.0100 #### [facility] [address] [place], [address] Absolute Neut 10.6 X10 3/uL High 2.0-7.7 [facility] Comment on above: Performed By: #### L 501.4021, L300.4310, L300.3900, L500.2500, L100.0100 #### [facility] [address] [place], [address] Basophils/100 WBC (Bld) 0.3 % Normal 0-[address] [facility] Comment on above: Performed By: #### L 501.4021, L300.4310, L300.3900, L500.2500, L100.0100 #### [facility] [address] [place], [address] Eosinophils/100 WBC (Bld) 0.1 % Normal 0-5 [facility] Comment on above: Performed By: #### L 501.4021, L300.4310, L300.3900, L500.2500, L100.0100 #### [facility] [address] [place], [address] Erythrocyte distribution width (RBC) [Ratio] 11.9 % Normal 11.6-14.6 [facility] Comment on above: Performed By: #### L 501.4021, L300.4310, L300.3900, L500.2500, L100.0100 #### [facility] [address] [place], [address] Hematocrit (Bld) [Volume fraction] 42.8 % Normal 40-54 [facility] Comment on above: Performed By: #### L 501.4021, L300.4310, L300.3900, L500.2500, L100.0100 #### [facility] [address] [place], [address] Hemoglobin (Bld) [Mass/Vol] 15.2 g/dL Normal 13.0-16.5 [facility] Comment on above: Performed By: #### L 501.4021, L300.4310, L300.3900, L500.2500, L100.0100 #### [facility] [address] [place], [address] IG% 0.400 Normal 0.0-0.9 [facility] Comment on above: Result Comment: IG% - Immature Granulocytes (promyelocytes, myelocytes and metamyelocytes) > 1% indicates that a LEFT SHIFT is Present. Performed By: #### L 501.4021, L300.4310, L300.3900, L500.2500, L100.0100 #### [facility] [address] [place], [address] Lymphocytes/100 WBC (Bld) 13.7 % Low 19-41 [facility] Comment on above: Performed By: #### L 501.4021, L300.4310, L300.3900, L500.2500, L100.0100 #### [facility] [address] [place], [address] MCH (RBC) [Entitic mass] 31.2 pg Normal 27.0-32.0 [facility] Comment on above: Performed By: #### L 501.4021, L300.4310, L300.3900, L500.2500, L100.0100 #### [facility] [address] [place], [address] MCHC (RBC) [Mass/Vol] 35.5 g/dL Normal 32-36 [facility] Comment on above: Performed By: #### L 501.4021, L300.4310, L300.3900, L500.2500, L100.0100 #### [facility] [address] [place], [address] MCV (RBC) [Entitic vol] 87.9 fL Normal 80-94 [facility] Comment on above: Performed By: #### L 501.4021, L300.4310, L300.3900, L500.2500, L100.0100 #### [facility] [address] [place], [address] Monocytes/100 WBC (Bld) 7.8 % Normal 0-[address] [facility] Comment on above: Performed By: #### L 501.4021, L300.4310, L300.3900, L500.2500, L100.0100 #### [facility] [address] [place], [address] Neutrophils/100 WBC (Bld) 77.7 % High 47-70 [facility] Comment on above: Performed By: #### L 501.4021, L300.4310, L300.3900, L500.2500, L100.0100 #### [facility] [address] [place], [address] Nucleated RBC (Bld) [#/Vol] 0 10*3/uL Normal 0-5 [facility] Comment on above: Performed By: #### L 501.4021, L300.4310, L300.3900, L500.2500, L100.0100 #### [facility] [address] [place], [address] Platelet mean volume (Bld) [Entitic vol] 9.3 fL Normal 6.2-12.0 [facility] Comment on above: Performed By: #### L 501.4021, L300.4310, L300.3900, L500.2500, L100.0100 #### [facility] [address] [place], [address] Platelets (Bld) [#/Vol] 260 10*3/uL Normal 150-450 [facility] Comment on above: Performed By: #### L 501.4021, L300.4310, L300.3900, L500.2500, L100.0100 #### [facility] [address] [place], [address] RBC (Bld) [#/Vol] 4.87 10*6/uL Normal 4.6-6.2 [facility] Comment on above: Performed By: #### L 501.4021, L300.4310, L300.3900, L500.2500, L100.0100 #### [facility] [address] [place], [address] RDW SD 38.4 fl Normal 35.1-43.9 [facility] Comment on above: Performed By: #### L 501.4021, L300.4310, L300.3900, L500.2500, L100.0100 #### [facility] [address] [place], [address] WBC (Bld) [#/Vol] 13.6 10*3/uL High 4.4-11.0 [facility] Comment on above: Performed By: #### L 501.4021, L300.4310, L300.3900, L500.2500, L100.0100 #### [facility] [address] [place], [address] Cardiac Cath Interventionon 09-30-2024 Cardiac Cath Intervention [facility] Imaging Services [address] [facility] [place] [address] Cardiac Cath Intervention MR#: [id number] Acct: [id number] Name: RADHA LY Rep #: [id number] : 1970 54 From: Malcolm Wray MD PCP: Dr. Ramses Earl, DO Status:ADM IN Patient Name: RADHA LY Study Date: 09/30/2024 Performing: Malcolm Wray MD Ht: 67 inches 170.18 cm : 1970 Wt: 218.3 lbs 99.02 kg Age: 54 Gender: male BSA: 2.1 PROCEDURE(S) PERFORMED DC01-(37546)LHC/COR/ LV IC16-(54898/C9606)AM I, STEPHANIA OR PTCA, ARTERY/GRAFT, SINGLE VESSEL IC17-(35109)CORONARY MECHANICAL THROMBECTOMY (ANGIOJET,PENUMBRA) CLINICAL PROFILE AND CO-MORBIDITIES Indications: ACS <= 24 hrs Heart Failure: None CAD Presentations: STEMI. Symptom onset Date/Time: 09/30/2024 12:00:00 Time Estimated CONCLUSIONS 100% Prox RCA BUYER ASSISTANT Om1, filling retrogradely via collaterals 40% Prox LAD, 60% Prox D1 LVEF 45% 3.0x34 mm RECOMMENDATIONS ASA Indefinitley P2Y12 inhibitors for atleast 6 months DESCRIPTION OF PROCEDURE The patient arrived to the procedure lab. The risks and benefits of the procedure as well as a full description of our services here and lack of surgical backup were fully explained to the patient and/or their significant other prior to the catheterization. The Timeout was completed, verifying the correct patient and procedure. The patient's procedural site was prepped and draped in the usual fashion. Local anesthetic was given subcutaneously to right radial region with Lidocaine 2%. Using a modified Seldinger technique, arterial access was obtained via the right radial artery, a 6Fr sheath was inserted.. Left Coronary Artery selective angiography was performed in multiple views using a 5 Fr. 4.0 Duncan catheter. Right Coronary Artery selective angiography was then performed in multiple views using a 5 Fr. 4.0 Duncan catheter. Left Ventriculography was performed in DUARTE projection using a 5 Fr. Pigtail catheter. LV to AO pullback pressures were then recorded jr 4 Guide catheter was inserted and engaged into the RCA. runthrough Guide wire was advanced to the RCA. Balloon catheter was advanced across lesion in the right coronary, proximal. PTCA balloon inflated at 6 atms for 13 secs. fernando 3.0 x 34 Drug Eluting stent was advanced across the lesion in the right coronary, mid. Angiogram performed post stent deployment. nc emerge 3.0 x 30 Balloon catheter was inserted post stent. Angiogram performed post balloon dilatation. CORONARY ANGIOGRAPHY DOMINANCE: Right Dominant LEFT HEART ASSESSMENT Left Ventricular Ejection Fraction: by LV Gram 45 % LVEDP: 31 mmHg Aortic Valve Mean Gradient: [id number] LEFT MAIN: Angiographically normal LEFT ANTERIOR DESCENDING ARTERY: LAD: Tubular 40% Proximal lesion in LAD DIAGONAL 1: Tubular 60% Ostial lesion in DIAG1 OM 1: Diffuse 100% Ostial lesion in MARG1 OM 2: Diffuse 100% Ostial lesion in MARG1 RIGHT CORONARY ARTERY: RCA: Thrombus 100% Proximal lesion in RCA COLLATERAL FLOW: Collateral flow from DIAG1 to MARG1 INTERVENTION INFORMATION LESION SITE: RCA (Mid) Lesion Complexity: High/C, thrombus present: Yes, lesion length: 32 mm, culprit lesion: Yes, In-stent restenosis: No, chronic total occlusion: No Pre Stenosis: 100% % Pre intervention PARISH flow: 0 PROCEDURE: Drug Eluting Stent with pre and post dilatation, Thrombectomy Post Stenosis: 0% % Post intervention PARISH flow: 3 Lesion Devices: Terumo .014 180cm Runthrough Extra Floppy straight Cordis 6 Fr JR4 100cm Guide Catheter Sumit Sci EMERGE MR 2.50x12 BALLOON Penumbra Penumbra engine canister Penumbra Indigo Penumbra CAT Rx 140cm large lumen Medtronic 3.0 x 34 FERNANDO FRONTIER STEPHANIA Sumit Sci NC EMERGE MR 3.00x30 BALLOON COMPLICATIONS No Complications PROCEDURE MEDICATIONS Fentanyl 50 mcg IV Fentanyl 50 mcg IV Oxygen: 2 L/min via nasal cannula Atropine 1mg/10ml .5 amp @ 09/30/2024 22:33:14 Heparin 7000 unit(s) IV 09/30/2024 22:24:32 Heparin 6000 unit(s) IV 09/30/2024 23:05:31 Lasix 40 mg IV 09/30/2024 23:17:56 Nitro 200 mcg IC 09/30/2024 22:41:25 Verapamil 2.5mg, Ntg 200mcgs, given IA 09/30/2024 22:20:35 SUMMARY OF HEMODYNAMIC DATA Time AIR REST ECG 22:16:50 AO 99/67 (78) SA 22:30:28 LV 127/17, 31 22:55:45 LV 124/21, 31 22:55:54 LV 136/38, 44 22:56:36 LVp 136/29, 39 22:56:42 AOp 133/85 (106) 22:56:49 Valve Area (c P-P/ms Time AIR REST Aortic 0.00 29.4 mn/180 ms 3.0 pk/180 ms 22:56:42 Signed By Malcolm Wray MD On 10/01/2024 07:32:12 Malcolm Wray MD 10/01/24 0732 Date Malcolm Wray MD Cosigner Signature: Date (if indicated) CC: D (more content not included)... Normal [facility] Chest 1 View (Portable)on Chest 1 View (Portable) [facility] Imaging Services [address] [place] [address] Chest 1 View (Portable) MR#: [id number] Acct: [id number] Name: RADHA LY Rep #: [id number] : 1970 M 54 From: Kyle Bush MD PCP: Dr. Ramses Earl, DO Status: ADM IN Study: Chest 1 View (Portable) Date of Exam: 09/30/24 Exam# [id number] Ordering Dr: Holden Will MD PROCEDURE: CHEST 1 VIEW (PORTABLE) 09/30/2024 REASON FOR EXAM: CHEST PAIN TECHNIQUE: Frontal view of the chest. FINDINGS: Hardware: None Heart: Cardiac and mediastinal contours are stable. Lungs: The lungs are clear. Bones: The bones are unremarkable. Other: RAD/Chest 1 View (Portable) IMPRESSION: No Acute Findings. Reading Location: [facility] CC: Dr. Ramses Earl DO; Dr. Holden Will MD Feed Research Technician: Signed Normal [facility] Consultation - Cardiologyon 09-30-2024 Consultation - Cardiology [facility] Medical Records Department [address] [address] Consultation - Cardiology 09/30/24 2302 MR#: [id number] Acct: [id number] Name: RADHA LY Rep #: [id number] : 1970 54 From: Malcolm Wray MD PCP: Dr. Ramses Earl, DO Status:ADM IN Location: ICU ICU03-1 Assessment Plan Assessment/Plan (1) Acute inferior myocardial infarction: PLAN: Patient was taken emergently to the cardiac catheterization lab. Coronary angiography revealed total occlusion of the proximal right coronary artery. Successful revascularization was performed with aspiration thrombectomy, balloon angioplasty and placement of a drug-eluting stent. Excellent results were noted. Continue aspirin lifelong. Clopidogrel for at least 6 months. (2) Coronary artery disease: PLAN: See #1 above. Continue aspirin and clopidogrel. Patient is also noted to have chronic total occlusion of his obtuse marginal branch that is filling retrogradely via home collaterals. For medical treatment. Beta-blockers. Risk factor modification. Statins. (3) Left ventricular systolic dysfunction (LVSD): PLAN: LVEF approximately 40% with posterior hypokinesis secondary to #1 above. Beta-blockers. ACEI. SGLT2 inhibitors. Check echocardiogram. (4) Hypertension: QUALIFIERS: Hypertension type: essential hypertension Qualified Code(s): I10 - Essential (primary) hypertension PLAN: ACEI and beta-blockers. (5) Diabetes: QUALIFIERS: Diabetes mellitus type: type 2 Diabetes mellitus ferry terminal agent insulin use: w [facility] assisted use PLAN: As per internal medicine. HPI Consult Data Date of Consult: 09/30/24 HPI Narrative Reason for Consultation: Inferior STEMI HPI Narrative: 54-year-old gentleman with past medical history significant for hypertension and diabetes mellitus. He presented to the emergency room with complaints of acute onset chest pain that started about 9 hours prior to presentation. He described mild shortness of breath with it along with some nausea. In the emergency room, an ECG was done. It showed changes consistent with acute inferior lateral myocardial infarction. Subsequently a STEMI alert was called. Denies any prior history of heart disease. [facility] Medical History (Updated 09/30/24 @ 23:[address] Malcolm Wray MD) Hypertension Diabetes Home Medications ???Medication ???Instructions ???Recorded ???Last Taken ???Type fosinopril 10 mg tablet 10 mg PO DAILY #90 tabs 04/08/24 U nknown Rx glimepiride 2 mg tablet 2 mg PO DAILY #90 tabs 04/08/24 Un known Rx metformin 500 mg tablet See Rx Instructions .Route 4 Unknown Rx .COMPLEX #180 tabs pioglitazone 30 mg tablet 30 mg PO DAILY #90 tabs 04/08/24 U nknown Rx Allergy/AdvReac Type Severity Reaction Status Date / Time No Known Allergies Allergy Verified 09/30/24 21:25 Family History Mother Diabetes Father Heart disease Social History Smoking Status: Current every day smoker tobacco type: smokeless tobacco Smokeless tobacco user: chewing tobacco how long ago did patient quit smokin07/25/17 alcohol intake: current alcohol intake frequency: holidays/special occasions only Alcohol type: beer substance use type: does not use what type of physical activity do you participate in: walking frequency: 1-2 times per week Physical Exam Narrative Mildly anxious. Heart sounds 1 and 2 noted. Chest clear to auscultation bilaterally. Alert oriented x 3. Trace bilateral ankle edema noted. Risk Stratification Risk Stratification Applicable: No Objective Data Vital Signs: Vital Signs Temp Pulse Resp BP Pulse Ox O2 Del Method 97.6 F L 76 19 H 180/94 H 95 Nasal Cannula 09/30/24 21:57 09/30/24 21:57 09/30/24 21:57 09/30/24 21:57 09/30/24 21:57 09/30/24 21:44 Oxygen Delivery Method Nasal Cannula Weight: 218 lb 4.8 oz Body Mass Index (BMI) 34.2 Lab / Micro Data 09/30/24 21:30 09/30/24 21:30 Labs: Laboratory Results - last 24 hr 09/30/24 21:30: WBC 13.6 H, RBC 4.87, Hgb 15.2, Hct 42.8, MCV 87.9, MCH 31.2, MCHC 35.5, RDW Std Deviation 38.4, RDW Coeff of Sue 11.9, Plt Count 260, MPV 9.3, Immature Gran % (Auto) 0.400, Neut % (Auto) 77.7 H, Lymph % (Auto) 13.7 L, [place] % (Auto) 7.8, Eos % (Auto) 0.1, Baso % (Auto) 0.3, A bsolute Neuts (auto) 10.6 H, Absolute Lymphs (auto) 1.86,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 Performing Clinician Anup adame 11-09-2024 00:27-0400 Body weight 98.[address] Ramses Earl DO Work Phone: [facility] 11-06-2024 07:29-0400 Body height 170.[address] Ramses Earl DO Work Phone: [facility] 11-06-2024 07:29-0400 Body weight 98.[address] Ramses Earl DO Work Phone: [facility] 11-04-2024 13:49-0400 Body height 170.[address] Ramses Earl DO Work Phone: [facility] 11-04-2024 13:49-0400 Body mass index (BMI) [Ratio] 33.5 kg/m2 Dr. Ramses Earl DO Work Phone: [facility] 11-04-2024 13:49-0400 Body weight 97.[address] Ramses Earl DO Work Phone: [facility] 11-04-2024 13:49-0400 Diastolic blood pressure 84 mm[Hg] Dr. Ramses Earl DO Work Phone: [facility] 11-04-2024 13:49-0400 Heart rate 76 /min Dr. Ramses Earl DO Work Phone: [facility] 11-04-2024 13:49-0400 Respiratory rate 18 /min Dr. Ramses Earl DO Work Phone: [facility] 11-04-2024 13:49-0400 Systolic blood pressure 126 mm[Hg] Dr. Ramses Earl DO Work Phone: [facility] 11-04-2024 11:11-0400 Body height 170.[address] Ramses Earl DO Work Phone: [facility] 11-04-2024 11:11-0400 Body mass index (BMI) [Ratio] 33.3 kg/m2 Dr. Ramses Earl DO Work Phone: [facility] 11-04-2024 11:11-0400 Body temperature 96.8 [degF] Dr. Ramses Earl DO Work Phone: [facility] 11-04-2024 11:11-0400 Body weight 96.[address] Ramses Earl DO Work Phone: [facility] 11-04-2024 11:11-0400 Diastolic blood pressure 78 mm[Hg] Dr. Ramses Earl DO Work Phone: [facility] 11-04-2024 11:11-0400 Heart rate 73 /min Dr. Ramses Earl DO Work Phone: [facility] 11-04-2024 11:11-0400 Respiratory rate 16 /min Dr. Ramses Earl DO Work Phone: [facility] 11-04-2024 11:11-0400 SaO2% (BldA) [Mass fraction] 95 % Dr. Ramses Earl DO Work Phone: [facility] 11-04-2024 11:11-0400 Systolic blood pressure 118 mm[Hg] Dr. Ramses Earl DO Work Phone: [facility] 10-22-2024 14:31-0400 Body height 170.[address] Ramses Earl DO Work Phone: [facility] 10-22-2024 14:31-0400 Body mass index (BMI) [Ratio] 33.5 kg/m2 Dr. Ramses Earl DO Work Phone: [facility] 10-22-2024 14:31-0400 Body temperature 98.2 [degF] Dr. Ramses Earl DO Work Phone: [facility] 10-22-2024 14:31-0400 Body weight 97.[address] Ramses Earl DO Work Phone: [facility] 10-22-2024 14:31-0400 Diastolic blood pressure 62 mm[Hg] Dr. Ramses Earl DO Work Phone: [facility] 10-22-2024 14:31-0400 Heart rate 83 /min Dr. Ramses Earl DO Work Phone: [facility] 10-22-2024 14:31-0400 Respiratory rate 18 /min Dr. Ramses Earl DO Work Phone: [facility] 10-22-2024 14:31-0400 SaO2% (BldA) [Mass fraction] 95 % Dr. Ramses Earl DO Work Phone: [facility] 10-22-2024 14:31-0400 Systolic blood pressure 130 mm[Hg] Dr. Ramses Earl DO Work Phone: [facility] 10-08-2024 09:18-0400 Body weight 98.[address] Ramses Earl DO Work Phone: [facility] 10-08-2024 08:51-0400 Body mass index (BMI) [Ratio] 34.1 kg/m2 Dr. Ramses Earl DO Work Phone: [facility] 10-08-2024 08:51-0400 Diastolic blood pressure 80 mm[Hg] Dr. Ramses Earl DO Work Phone: [facility] 10-08-2024 08:51-0400 Heart rate 77 /min Dr. Ramses Earl DO Work Phone: [facility] 10-08-2024 08:51-0400 SaO2% (BldA) [Mass fraction] 100 % Dr. Ramses Earl DO Work Phone: [facility] 10-08-2024 08:51-0400 Systolic blood pressure 140 mm[Hg] Dr. Ramses Earl DO Work Phone: [facility] 10-02-2024 11:00-0400 Diastolic blood pressure 58 mm[Hg] Dr. Ramses Earl DO Work Phone: [facility] 10-02-2024 11:00-0400 Heart rate 59 /min Dr. Ramses Earl DO Work Phone: [facility] 10-02-2024 11:00-0400 Respiratory rate 17 /min Dr. Ramses Earl DO Work Phone: [facility] 10-02-2024 11:00-0400 SaO2% (BldA) [Mass fraction] 94 % Dr. Ramses Earl DO Work Phone: [facility] 10-02-2024 11:00-0400 Systolic blood pressure 113 mm[Hg] Dr. Ramses Earl DO Work Phone: [facility] 10-02-2024 10:00-0400 Body weight 95.[address] Ramses Earl DO Work Phone: [facility] 10-02-2024 07:08-0400 Inhaled oxygen flow rate 4 L/min Dr. Ramses Earl DO Work Phone: [facility] 10-02-2024 06:00-0400 Body mass index (BMI) [Ratio] 33 kg/m2 Dr. Ramses Eral DO Work Phone: [facility] 10-02-2024 03:00-0400 Body temperature 98 [degF] Dr. Ramses Earl DO Work Phone: [facility] 08-05-2024 15:32-0500 Body mass index (BMI) [Ratio] 32.7 kg/m2 Dr. Ramses Earl DO Work Phone: [facility] 08-05-2024 15:32-0500 Body temperature 96.1 [degF] Dr. Ramses Earl DO Work Phone: [facility] 08-05-2024 15:32-0500 Body weight 94.[address] Ramses Earl DO Work Phone: [facility] 08-05-2024 15:32-0500 Diastolic blood pressure 82 mm[Hg] Dr. Ramses Earl DO Work Phone: [facility] 08-05-2024 15:32-0500 Heart rate 72 /min Dr. Ramses Earl DO Work Phone: [facility] 08-05-2024 15:32-0500 Respiratory rate 16 /min Dr. Ramses Earl DO Work Phone: [facility] 08-05-2024 15:32-0500 SaO2% (BldA) [Mass fraction] 98 % Dr. Ramses Earl DO Work Phone: [facility] 08-05-2024 15:32-0500 Systolic blood pressure 138 mm[Hg] Dr. Ramses Earl DO Work Phone: [facility] Encounters Encounter Date Encounter Type Care Provider Facility Start: 11-24-2024 ambulatory Ramses Earl Facilit y:[facility] Start: 11-21-2024 ambulatory Ramses Earl Facilit y:[facility] Start: 11-17-[address] Malcolm hines MD -Cardiac Rehab Work Phone: Start: 11-14-2024 End: 11-14-[address] Ramses Earl DO Work Phone: [facility] Work Phone: Start: 11-14-2024 End: 11-14-[address] Malcolm Wray MD -Laboratory Work Phone: Start: 11-14-2024 End: 11-14-2024 ambulatory Ramses Earl Facility:[facility] Start: 11-04-2024 End: 11-04-[address] Malcolm Wray MD -[facility] Work Phone: Start: 11-04-2024 End: 11-04-[address] Ramses Earl DO Work Phone: [facility] Work Phone: Start: 11-04-2024 End: 11-04-[address] Ramses Hills DO -[facility] Work Phone: Start: 11-04-2024 End: 11-04-[address] Ramses Earl DO Work Phone: [facility] Work Phone: Start: 10-31-2024 End: 11-08-[address] Ramses Earl DO Work Phone: [facility] Work Phone: Start: 10-31-2024 End: 11-08-[address] Malcolm Wray MD -Cardiac Rehab Work Phone: Start: 10-31-[address] Malcolm hines MD -Cardiac Rehab Work Phone: Start: 10-22-2024 End: 10-22-[address] Ramses Hills DO -[facility] Work Phone: Start: 10-22-2024 End: 10-22-[address] Ramses Earl DO Work Phone: [facility] Work Phone: Start: 10-20-[address] Malcolm hines MD -Cardiac Rehab Work Phone: Start: 10-08-2024 End: 10-08-[address] Malcolm Wray MD -Cardiac Rehab Work Phone: Start: 10-08-2024 End: 10-08-2024 ambulatory Ramses Earl Facility:[facility] Start: 10-02-2024 ambulatory Ramses Earl Facilit y:[facility] Start: 10-02-2024 Non-patient / Non-visit Dr. Malcolm Wray MD -[facility] Start: 10-02-2024 End: 10-02-2024 ambulatory Ramses Earl Facility:[facility] Start: 10-02-2024 End: 10-02-2024 Non-patient / Non-visit Dr. Malcolm Wray MD -[facility] Work Phone: Start: 10-01-2024 Non-patient / Non-visit Dr. Wilmer Silver DO -[facility] Work Phone: Start: 10-01-2024 ambulatory Ramses Earl Facilit y:[facility] Start: 10-01-2024 Non-patient / Non-visit Dr. Malcolm Wray MD -[facility] Start: 10-01-2024 Non-patient / Non-visit Dr. Deshawn Cormier MD -[facility] Start: 09-30-2024 End: 10-02-2024 Evaluation and management of inpatient Dr. Wilmer Silver DO -Intensive Care Unit Work Phone: Start: 09-30-2024 Non-patient / Non-visit Dr. Malcolm Wray MD -[facility] Start: 09-30-2024 Non-patient / Non-visit Dr. Polo Abbott DO -[facility] Work Phone: Start: 09-30-2024 ambulatory Polo Aguiar ty:[facility] Start: 08-05-2024 End: 08-05-[address] Ramses Hills DO -[facility] Work Phone: Start: 08-05-2024 End: 08-05-2024 ambulatory Ramses Earl Facility:[facility] Start: 04-08-2024 End: 04-08-2024 ambulatory Ramses Earl Facility:[facility] Procedures Date Procedure Procedure Detail Performing Clinician Start: 10-01-[address] Ramses Earl DO Work Phone: Start: 09-30-2024 Coagulation time, activated Dr. Ramses Earl DO Work Phone: Start: 09-30-2024 Plain chest X-ray Dr. Levon Earl DO Work Phone: Start: 09-30-2024 History of placement of stent for coronary artery disease History of coronary artery stent placement Dr. Ramses Hills DO Comment on above: 3.0 x 34 FERNANDO FRONTI ER STEPHANIA to mRCA 09/30/2024 Plan of Treatment Date Care Activity Detail Author Start: 11-24-2024 Polysomnography [facility] Start: 10-08-2024 [facility] Start: 10-02-[address] [facility] Work Phone: Start: 10-02-2024 Patient discharge [facility] Start: 10-01-2024 Following clinical p athway protocol [facility] Start: 09-30-2024 Ambulation without limitation [facility] Start: 09-30-2024 Pulse taking [facility] Start: 09-30-2024 Admission procedure [facility] Start: 09-30-2024 Cardiac monitoring [facility] Start: 09-30-2024 Cardiac rehabilitation - phase 1 [facility] Start: 09-30-2024 Cardiac rehabilitation - phase 2 [facility] Start: 09-30-2024 Notification of physician [facility] Start: 09-30-2024 Oxygen therapy [facility] Start: 09-30-2024 Patient discharge [facility] Start: 09-30-2024 Taking patient vital signs [facility] Start: 09-30-2024 Vascular disease risk assessment [facility] Start: 09-30-2024 Vital signs measurements [facility] Start: 09-30-2024 End: 09-30-2024 [facility] Start: 09-30-2024 [facility] Comprehensive metabo lic 2000 panel - Serum or Plasma [facility] Lipid 1996 panel - S naomi or Plasma [facility] Patient referral [facility] Work Phone: Polysomnography [facility] Payers Date Payer Category Payer Self-pay 2023 Unknown [id number] Unknown [id number] 2.16.8 [id number] Unknown [id number] 2.16.8 [id number] Unknown [id number] 2.16.8 [id number] Unknown [id number] 2.16.8 [id number] Unknown [id number] 2.16.8 [id number] Unknown [id number] 2.16.8 [id number] Unknown [id number] 2.16.8 [id number] Unknown [id number] 2.16.8 [id number] Unknown [id number] 2.16.8 [id number] Unknown [id number] 2.16.8 [id number] Unknown [id number] 2.16.8 [id number] Unknown [id number] 2.16.8 [id number] Unknown [id number] 2.16.8 [id number] Unknown [id number] 2.16.8 40.1.106109.3.579.2.462 Unknown [id number] 2.16.8 40.1.467274.3.579.2.462 Unknown [id number] 2.16.8 40.1.801131.3.579.2.462 Unknown [id number] 2.16.8 [id number] Unknown [id number] 2.16.8 [id number] Unknown [id number] 2.16.8 [id number] Social History Date Type Detail Facility Start: 10[facility]08-2024 [facility] Start: 1970 Sex Assigned At Male [facility] Medical Equipment Procedure Code Equipment Code Equipment Origin al Text Equipment Identifier Dates Drug-eluting coronary artery stent, [id number] lymer-coated ()[id number] FDA Start: 09-30-2024 Goals Date Patient Goal Desired Activity /State Functional Status Date Assessment Result Facility 10-02-2024 Functional status [facility] Work Phone: Mental Status Date Assessment Result Facility 10-02-2024 Cognitive function Voice/Name [facility] Work Phone: Progress note 11-04-2024 Note Date & Type Note Facility 11-04-2024 Progress note [facility] Progress note 11-04-2024 Note Date & Type Note Facility 11-04-2024 Progress note [facility] Progress note 11-04-2024 Note Date & Type Note Facility 11-04-2024 Progress note Note Date/Time November 04, 2024 2:07pm [facility] [address] [place] [address] OFFICE VISIT Date of Service: 11/04/24 MR#: [id number] Acct: [id number] Name: RADHA LY Rep #: [id number] : 1970 Provider: Dr. Charli Wray MD Age/Sex: 54/M Location: [facility] Status: Signed HPI HPI History of Present Illness Details: This pleasant gentleman had presented to the hospital last month with an acute inferior STEMI. Emergent percutaneous revascularization was performed with placement of a 3.0 x 34 mm drug-eluting stent. Excellent results were noted. 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 Echocardiography the next day showed overall LVEF of 60%. Clinically patient is doing well. Denies any chest pains or shortness of breath. No palpitations. No orthopnea or PND. No ankle edema. Tolerating atorvastatin well and denies any muscle aches or pains. 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 Accompanied by: Daughter Is patient in pain?: No Allergies No Known Allergies Allergy (Verified 11/04/24 13:50) Medications ?Medication ?Instructions ?Recorded ?Confirmed ?Type fosinopril 10 mg tablet 10 mg PO DAILY #90 tabs 03/1211/04/24 Rx glimepiride 2 mg tablet 2 mg PO DAILY #90 tabs 04/0811/04/24 Rx metformin 500 mg tablet See Rx Instructions .Route 1 11/04/24 Rx .COMPLEX #180 tabs pioglitazone 30 mg tablet 30 mg PO DAILY #90 tabs 03/1211/04/24 Rx aspirin 81 mg tablet,delayed 81 mg PO DAILY@0800 #0 ta bs 10/02/24 11/04/24 Rx release atorvastatin 80 mg tablet (Lipitor) 80 mg PO DAILY #30 tabs 10/22/24 11/04/24 Rx carvedilol 3.125 mg tablet 3.125 mg PO BID #60 tabs 11/04/24 Rx clopidogrel 75 mg tablet 75 mg PO DAILY #30 tabs 10/0911/04/24 Rx empagliflozin 10 mg tablet 10 mg PO DAILY #30 tabs 11/04/24 Rx (Jardiance) Ejection fraction %: 60 Have you fallen in the past year?: No PFSH Medical History Acute inferior myocardial infarction Biceps tendon tear Diabetes mellitus, type 2 Left ventricular systolic dysfunction (LVSD) Obesity (BMI 30.0-34.9) ST elevation (STEMI) myocardial infarction involving right coronary artery (09/30/24) Tobacco abuse Surgical History History of coronary artery stent placement (09/30/24) Family History Mother Diabetes Father Heart disease Social History Smoking Status: Former smoker Smokeless tobacco user: chewing tobacco how long ago did patient quit smokin07/25/17 alcohol intake: current alcohol intake frequency: holidays/special occasions only Alcohol type: beer substance use type: does not use what type of physical activity do you participate in: walking frequency: 1-2 times per week ROS Const Const: Positive for fatigue; Negative for weakness, headache(s) or weight gain ENT ENT: Positive for Nosebleed/epistaxis; Negative for headache(s), dizziness or balance problems Cardio Chest Pain: No Palpitations: No Edema: None Muscle aches with walking: None Resp Respiratory: Negative for SOB with activity, SOB at rest or SOB orthopneaundefinedSOB lying down GI GI: Negative nausea, vomiting or heartburn Musc Musc: Negative for muscle aches/ myalgia, muscle weakness, joint pain or balanceproblems Neuro Neuro: Negative for dizziness, lightheadedness, near syncope, syncope, headache(s) or weakness Endo Endo: Positive for fatigue Cardiology Exam Const Appearance: comfortable and no acute distress Nutritional Appearance: well nourished Neck Neck: no JVD Carotids: Negative bruit Chest Auscultation: Bilateral: Clear to Auscultation Cardio Rate: regular rate Rhythm: regular rhythm Heart sounds: S1 normal and S2 normal Neuro General: patient alert, patient awake and patient oriented x3 Extremities Lower Extremity Edema: None: Bilateral Supplemental Info Supplemental Information Echocardiogram 10/01/2024 Interpretation Summary Mild inferior hypokinesis. Overall LVEF estimated at 60%. Stage I diastolic dysfunction Right ventricular systolic pressure estimated to be 38 mmHg. Cardiac Catheterization 09/30/2024 CONCLUSIONS 100% Prox RCA BUYER ASSISTANT Om1, filling retrogradely via collaterals 40% Prox LAD, 60% Prox D1 LVEF 45% 3.0x34 mm RECOMMENDATIONS ASA Indefinitley P2Y12 inhibitors for atleast 6 months CORONARY ANGIOGRAPHY DOMINANCE: Right Dominant LEFT HEART ASSESSMENT Left Ventricular Ejection Fraction: by LV Gram 45 % LVEDP: 31 mmHg Aortic Valve Mean Gradient: [id number] LEFT MAIN: Angiographically normal LEFT ANTERIOR DESCENDING ARTERY: LAD: Tubular 40% Proximal lesion in LAD DIAGONAL 1: Tubular 60% Ostial lesion in DIAG1 OM 1: Diffuse 100% Ostial lesion in MARG1 OM 2: Diffuse 100% Ostial lesion in MARG1 RIGHT CORONARY ARTERY: RCA: Thrombus 100% Proximal lesion in RCA COLLATERAL FLOW: Collateral flow from DIAG1 to MARG1 INTERVENTION INFORMATION LESION SITE: RCA (Mid) Lesion Complexity: High/C, thrombus present: Yes, lesion length: 32 mm, culprit lesion: Yes, In-stent restenosis: No, chronic total occlusion: No Pre Stenosis: 100% % Pre intervention PARISH flow: 0 PROCEDURE: Drug Eluting Stent with pre and post dilatation, Thrombectomy Post Stenosis: 0% % Post intervention PARISH flow: 3 Lesion Devices: Terumo .014 180cm Runthrough Extra Floppy straight Cordis 6 Fr JR4 100cm Guide Catheter Sumit Sci EMERGE MR 2.50x12 BALLOON Penumbra Penumbra engine canister Penumbra Indigo Penumbra CAT Rx 140cm large lumen Medtronic 3.0 x 34 FERNANDO FRONTIER STEPHANIA Sumit Sci NC EMERGE MR 3.00x30 BALLOON Assessment and Plan Assessment and Plan (1) Coronary artery disease: Status: Chronic Plan: History of inferior STEMI. PCI to mid RCA with STEPHANIA. BUYER ASSISTANT first obtuse marginal. Continue aspirin lifelong. Clopidogrel for at least 1 year. Risk factor modification. (2) History of ST elevation myocardial infarction (STEMI): Status: Chronic Plan: STEPHANIA to mid RCA. Continue aspirin and clopidogrel. (3) Dyslipidemia: Status: Chronic Plan: Atorvastatin. Check lipid profile. (4) Hypertension: Status: Chronic Plan: Carvedilol, fosinopril. (5) Diabetes mellitus, type 2: Status: Chronic Qualifiers: Diabetes mellitus assisted insulin use: without assisted use Diabetesmellitus complication status: with circulatory complication Diabetes mellitus complication detail: with other circulatory complications Qualified Code(s): E11.59 - Type 2 diabetes mellitus with other circulatory complications Plan: As per PCP. Plan Details Follow Up: 6 Months Coding Level of Care Code Off vis,new,level 4 Diagnoses Coronary artery disease I25.[address] elevation myocardial infarction (STEMI) I25.2 Dyslipidemia E78.5 Hypertension I10 Type 2 diabetes mellitus with other circulatory complication, without long-term current use of insulin E11.59 Diabetes mellitus assisted insulin use: without ferry terminal agent use Diabetes mellitus complication status: with circulatory complication Diabetes mellitus complication detail: with other circulatory complications Coding Level of Care Code Off vis,new,level 4 Diagnoses Coronary artery disease I25.[address] elevation myocardial infarction (STEMI) I25.2 Dyslipidemia E78.5 Hypertension I10 Type 2 diabetes mellitus with other circulatory complication, without long-term current use of insulin E11.59 Diabetes mellitus ferry terminal agent insulin use: without ferry terminal agent use Diabetes mellitus complication status: with circulatory complication Diabetes mellitus complication detail: with other circulatory complications Clinical Quality Measures Falls Risk Screening/Assistive Devices Have you fallen in the past year?: No Cardiac Ejection fraction %: 60 11/04/24 1407 <Electronically signed by Malcolm Wray MD> Date _ Malcolm Wray MD Cosigner Signature: Date (if applicable) CC: Dr. Ramses Earl DO ~ [facility] Work Phone: Progress note 11-04-2024 Note Date & Type Note Facility 11-04-2024 Progress note Note Date/Time November 04, 2024 11:35 am [facility] [address] [place] [address] [place] [address] OFFICE VISIT Date of Service: 11/04/24 MR#: [id number] Acct: [id number] Name: RADHA LY Rep #: [id number] : 1970 Provider: Dr. Jh Earl DO Age/Sex: 54/M Location: [facility] Status: Signed Intake Vital Signs 10/22/24 14:31 11/04/24 08:38 11/04/24 11:11 Height 5 ft 7 in 5 ft 7 in 5 ft 7 in Weight: 214 lb 212 lb 6 oz BMI 33.5 33.3 BP 130/62 H 118/78 Blood Pressure Location Lt brachial Lt brachial Position Sitting Sitting Respiration 18 16 Pulse 83 73 Pulse Source Monitor Monitor Temp 98.2 F 96.8 F L Temp Source Temporal Temporal Pulse Oximetry (%) 95 95 Oxygen Delivery Method room air room air Intake Visit Reasons: DISCUSS SLEEP APNEA Chief Complaint: sleep apnea Sharepoint Engineer Required: No Accompanied by: Self Is patient in pain?: No Allergies No Known Allergies Allergy (Verified 11/04/24 11:07) Medications ?Medication ?Instructions ?Recorded ?Confirmed ?Type fosinopril 10 mg tablet 10 mg PO DAILY #90 tabs 03/1211/04/24 Rx glimepiride 2 mg tablet 2 mg PO DAILY #90 tabs 04/0811/04/24 Rx metformin 500 mg tablet See Rx Instructions .Route 1 11/04/24 Rx .COMPLEX #180 tabs pioglitazone 30 mg tablet 30 mg PO DAILY #90 tabs 03/1211/04/24 Rx aspirin 81 mg tablet,delayed 81 mg PO DAILY@0800 #0 ta bs 10/02/24 11/04/24 Rx release atorvastatin 80 mg tablet (Lipitor) 80 mg PO DAILY #30 tabs 10/22/24 11/04/24 Rx carvedilol 3.125 mg tablet 3.125 mg PO BID #60 tabs 11/04/24 Rx clopidogrel 75 mg tablet 75 mg PO DAILY #30 tabs 10/0911/04/24 Rx empagliflozin 10 mg tablet 10 mg PO DAILY #30 tabs 11/04/24 Rx (Jardiance) Have you fallen in the past year?: No [facility] Medical History Biceps tendon tear Diabetes mellitus, type 2 ST elevation (STEMI) myocardial infarction involving right coronary artery (09/30/24) Tobacco abuse Obesity (BMI 30.0-34.9) Left ventricular systolic dysfunction (LVSD) Acute inferior myocardial infarction Surgical History History of coronary artery stent placement (09/30/24) Family History Mother Diabetes Father Heart disease Social History Smoking Status: Former smoker Smokeless tobacco user: chewing tobacco how long ago did patient quit smokin07/25/17 alcohol intake: current alcohol intake frequency: holidays/special occasions only Alcohol type: beer substance use type: does not use what type of physical activity do you participate in: walking frequency: 1-2 times per week HPI HPI Chief Complaint: sleep apnea Details: RADHA LY, is a 54 M who presents to the office today for a discussion on sleep apnea. I received a form from his provider of home medical devices that Ineeded to fill out justification for his CPAP. I looked back through his hospital discharge summary and really could not find a diagnosis that addressed this problem. He says they said that his oxygen dropped below but there is no documentation in the discharge summary. ROS Const Constitutional: No body ache, excessive sweating, fatigue, fever(s), frequent falls, headache(s), snoring, weakness, weight change, sleep problems or change in appetite Eyes Eyes: No blurry vision, change in vision, eye pain or Light sensitivity ENT ENT: No abnormal hearing, ear or mastoid pain, tinnitus, nasal congestion, headache(s), neck pain or sore throat Resp Respiratory: No cough, shortness of breath, snoring or wheezing Cardio Cardiology: No chest pain at rest, chest pain with exertion, excessive sweating,shortness of breath, dyspnea on exertion, lightheadedness, orthopnea or palpitations Gastro GI: No abdominal pain, change in bowel habits, constipation, cramping, diarrhea,nausea/dyspepsia or vomiting Genitourinary Male: No burning urination, painful urination, urinary incontinence, urinary frequency or blood in urine Musc Musculoskeletal: No abnormal gait, joint pain, back pain, limited range of motion, neck pain, numbness, stiffness, tingling or Arthritis Skin Skin: No dry skin, redness, lesions, itchy eyes, rash or wounds Neuro Neurology: No abnormal gait, abnormal hearing, abnormal speech, dizziness, weakness, frequent falls, headache(s), memory loss, numbness or tingling Psych Psychiatric: No anxiety, No change in appetite, No depression, No memory loss and No Thoughts of harming yourself/Others Endo Endocrine: No cold intolerance, excessive sweating, fatigue, flushing, heat intolerance, increased thirst/drinking, increased hunger or weight change Aller/Imm Allergy/Immunologic: No itchy eyes, seasonal allergy symptoms, hives or wheezing Nehemias/Lymp Hematologic/Lymphatic: No easy bleeding, easy bruising or enlarged lymph nodes Exam Const General: cooperative and healthy appearing Nutritional Appearance: average body habitus [facility] Head: normal to inspection Ears: hearing grossly normal bilaterally Eyes General: appearance normal, both eyes and all related structures Neck Neck: normal visual inspection Chest Chest palpation & inspection: normal inspection of the chest Resp Effort & Inspection: normal respiratory effort Cardio Rate: regular rate Rhythm: regular rhythm GI Inspection: visible herniation (large ventral hernia) Skin General: no rashes or lesions noted Neuro General: normal sensation to monofilament Cognition: normal cognition Speech: speech normal Extrem General: normal exam except as noted (typical vanessa's sign of right biceps, compatable with a biceps tear.) Other: Right bicep is mushy Psych Appearance: grossly normal Mental Status: mental status grossly normal Speech and Movement: speech and movement normal Thought Process: normal Coding Level of Care Code Off vis,est,level 3 Diagnoses Sleep apnea in adult G47.30 History of coronary artery stent placement Z95.5 Assessment and Plan Assessment and Plan (1) Sleep apnea in adult: Status: Acute Plan: STOPBANG score of 8, which certainly indicates a need to do a sleep study. Without hospital documentation I really cannot order device or have any idea what the settings might be so I think the proper thing would be to get a home sleep study unattended and see if that documents the need for home CPAP or BiPAP. (2) History of coronary artery stent placement: Status: Acute Comment: 3.0 x 34 FERNANDO FRONTIER STPEHANIA to mRCA 09/30/2024 Orders: Orders Unattended Sleep Study Today G47.33 - Obstructive sleep apnea (adult) (pediatric) Clinical Quality Measures Falls Risk Screening/Assistive Devices Have you fallen in the past year?: No 11/04/24 0619 <Electronically signed by Ramses mayberry DO> Date _ Ramses Earl DO Cosigner Signature: Date (if applicable) CC: ~ [facility] Work Phone: Discharge summary note 10-02-2024 Note Date & Type Note Facility 10-02-2024 Note [facility] Medical Records Department [facility] [place] [address] Discharge Summary 10/02/24 1000 MR#: [id number] Acct: [id number] Name: RADHA LY Rep #: [id number] : 1970 54 From: Wilmer Silver DO PCP: Dr. Ramses Earl, DO Status:DIS IN Location: ICU ICU03-1 Providers Date of Admission: 09/30/24 Date of Discharge: 10/02/24 Primary Care Physician: Dr. Ramses Earl DO Reason For Visit: chest pain Diagnosis Discharge Diagnosis (1) ST elevation (STEMI) myocardial infarction involving right coronary artery: Status: Acute Code(s): I21.11 - ST elevation (STEMI) myocardial infarction involving right coronary artery Plan 1. ST elevation ME-patient will remain on his current medications, cardiology is participating in his care #2 type 2 diabetes-patient is on oral medications, blood sugars will be monitored and sliding scale insulin will be administered as needed #3 hyperlipidemia-I will order lipid profile for the patient in the morning, but does not appear that he is on any medication for cholesterol #4 essential hypertension-blood pressure will be monitored, patient's blood pressure medications will be adjusted as needed #5 mild pulmonary hypertension Total clinical time spent by myself addressing the patient's medical issues, reviewing all of his data, and collaborating with patient's care team: 35 minutes Medications at Discharge Home Medications fosinopril 10 mg tablet 10 mg PO DAILY #90 tabs 04/08/24 glimepiride 2 mg tablet 2 mg PO DAILY #90 tabs 04/08/24 metformin 500 mg tablet See Rx Instructions .Route .COMPLEX #180 tabs 04/08/24 pioglitazone 30 mg tablet 30 mg PO DAILY #90 tabs 04/08/24 aspirin 81 mg tablet,delayed release 81 mg PO DAILY@0800 #0 tabs 10/02/24 atorvastatin 80 mg tablet (Lipitor) 80 mg PO DAILY #30 tabs 10/02/24 carvedilol 3.125 mg tablet 3.125 mg PO BID #60 tabs 10/02/24 clopidogrel 75 mg tablet 75 mg PO DAILY #30 tabs 10/02/24 empagliflozin 10 mg tablet (Jardiance) 10 mg PO DAILY #30 tabs 10/02/24 Hospital Course Operations None Procedures 2-D Echocardiogram and Cardiac catheterization (With STEPHANIA placement and PTCA) Summary of Care Provided Minutes Spent on Discharge: 32 Hospital Course: This 54-year-old white male was seen in the emergency room at [facility] with chief complaint of chest pain, EKG was obtained which showed the patient to have a STEMI with inferior lead ST elevations, patient was taken to the [facility] where an occlusive lesion was noted in the right coronary artery, patient had a PTCA performed with STEPHANIA insertion. Patient did well and there were no complications from the procedure. Patient was admitted to ICU and cardiology participated in his care, echocardiogram was obtained which showed an EF of 60% with mild pulmonary hypertension. On 10/02/2024, patient was seen and examined: On examination he appeared in good health and spirits. Vital signs as documented. Skin warm and dry and without overt rashes. Neck without JVD, neck was supple, trachea midline, thyroid was normal. Lungs clear bilaterally, normal air movement was noted. Heart exam notable for regular rhythm, normal sounds and absence of murmurs, rubs or gallops. Abdomen unremarkable and without evidence of organomegaly, masses, or abdominal aortic enlargement. Bowel sounds are present, abdomen is not distended. Extremities nonedematous, no cyanosis was noted, no clubbing was noted. Neuro: Cranial nerves II through XII are grossly intact, no focal motor deficits were noted, sensation to light touch and pinprick intact, motor exam 5/5 throughout. Psych: Patient is alert and oriented x3, he does not appear anxious or depressed, he does not appear agitated. Patient was discharged home in stable condition on 10/02/2024 Weight / BMI Weight Weight: 95.663 kg Body Mass Index (BMI) 33.0 ABG / Lab / Microbiology Data 10/01/24 05:00 10/01/24 05:00 Laboratory: Laboratory Results - last 24 hr 10/01/24 11:08: POC Glucose 275 H 10/01/24 16:45: POC Glucose 285 H 10/01/24 20:49: POC Glucose 265 H 10/02/24 06:23: POC Glucose 240 H 10/02/24 08:13: POC Glucose 245 H Radiography Diagnostic Testing: Radiology Impression Echocardiogram 09/30/24 23:09 Interpretation Summary Mild inferior hypokinesis. Overall LVEF estimated at 60%. Stage I diastolic dysfunction Right ventricular systolic pressure estimated to be 38 mmHg. Ordering Physician: Malcolm Wray Referring Physician: Malcolm Wray Performed By: Jean-Paul Ibrahim RCS D/C Instructions Discharge Diet: 1800 Calorie Control Diet Weight Bearing Status: Full weight bearing DC O2, (more content not included)... [facility] Evaluation note 08-05-2024 Note Date & Type Note Facility 08-05-2024 Evaluation note Diagnosis Onset Date Resolution Diabetes chronic August 05, 2024 3:22pm Hypertension chronic July 3:22pm Coronary artery disease acute September 30, 2024 11:09pm Diabetes mellitus, type 2 acute September 30, 2024 11:09pm Essential hypertension acute September 30, 2024 11:09pm Diabetes chronic September 30 11:09pm Hypertension chronic September 30, 2024 11:09pm Acute inferior myocardial infarction inactive September 30, 2024 11:09pm Left ventricular systolic dysfunction (LVSD) inactive September 30, 2024 11:09pm Obesity (BMI 30.0-34.9) inactive September 30, 2024 11:09pm ST elevation (STEMI) myocardial infarction involving right coronary artery September 30, 2024 inactive September 30, 2024 11:09pm Tobacco abuse inactive September 30, 2024 11:09pm Coronary artery disease acute October 22, 2024 2:25pm Diabetes mellitus, type 2 acute October 22, 2024 2:25pm Essential hypertension acute October 22, 2024 2:25pm Hyperlipidemia due to type 2 diabetes mellitus acute October 22, 2024 2:25pm [facility] Work Phone: Evaluation note 08-05-2024 Note Date & Type Note Facility 08-05-2024 Evaluation note Diagnosis Onset Date Resolution Diabetes inactive August 05, 2024 3:22pm Hypertension deleted July 3:22pm Coronary artery disease acute September 30, 2024 11:09pm Essential hypertension acute September 30, 2024 11:09pm Diabetes mellitus, type 2 chronic September 30, 2024 11:09pm Acute inferior myocardial infarction inactive September 30, 2024 11:09pm Diabetes inactive September 30 11:09pm Left ventricular systolic dysfunction (LVSD) inactive September 30, 2024 11:09pm Obesity (BMI 30.0-34.9) inactive September 30, 2024 11:09pm ST elevation (STEMI) myocardial infarction involving right coronary artery September 30, 2024 inactive September 30, 2024 11:09pm Tobacco abuse inactive September 30, 2024 11:09pm Hypertension deleted September 30, 2024 11:09pm Coronary artery disease acute October 22, 2024 2:25pm Essential hypertension acute October 22, 2024 2:25pm Hyperlipidemia due to type 2 diabetes mellitus acute October 22, 2024 2:25pm Diabetes mellitus, type 2 chronic October 22, 2024 2:25pm History of coronary artery stent placement September 30, 2024 acute November 04, 2024 10:56am Sleep apnea in adult acute November 04, 2024 10:56am [facility] Work Phone: Evaluation note 08-05-2024 Note Date & Type Note Facility 08-05-2024 Evaluation note Diagnosis Onset Date Resolution Diabetes inactive August 05, 2024 3:22pm Hypertension deleted July 3:22pm Essential hypertension acute September 30, 2024 11:09pm Coronary artery disease chronic September 30, 2024 11:09pm Diabetes mellitus, type 2 chronic September 30, 2024 11:09pm Acute inferior myocardial infarction inactive September 30, 2024 11:09pm Diabetes inactive September 30 11:09pm Left ventricular systolic dysfunction (LVSD) inactive September 30, 2024 11:09pm Obesity (BMI 30.0-34.9) inactive September 30, 2024 11:09pm ST elevation (STEMI) myocardial infarction involving right coronary artery September 30, 2024 inactive September 30, 2024 11:09pm Tobacco abuse inactive September 30, 2024 11:09pm Hypertension deleted September 30, 2024 11:09pm Essential hypertension acute October 22, 2024 2:25pm Hyperlipidemia due to type 2 diabetes mellitus acute October 22, 2024 2:25pm Coronary artery disease chronic October 22, 2024 2:25pm Diabetes mellitus, type 2 chronic October 22, 2024 2:25pm History of coronary artery stent placement September 30, 2024 acute November 04, 2024 10:56am Sleep apnea in adult acute November 04, 2024 10:56am Coronary artery disease chronic November 04, 2024 1:32pm Diabetes mellitus, type 2 chronic November 04, 2024 1:32pm Dyslipidemia chronic November 04 1:32pm History of ST elevation myocardial infarction (STEMI) chronic November 04 1:32pm Hypertension chronic November 04 1:32pm [facility] Work Phone: Chief Complaint and Reason for Visit Chief Complaint Admit Date 3 M FU August 05, 2024 3:22pm chest pain September 30, 2024 10: 00pm chest pain September 30, 2024 11: 02pm chest pain September 30, 2024 11: 09pm chest pain October 01, 2024 8:2 0am chest pain October 01, 2024 5:5 2pm AM EKG October 02, 2024 5:3 5am chest pain October 02, 2024 10: 00am Referral Order October 02, 2024 2:1 4pm PCI w/stenting October 08, 2024 8:1 3am PCI w/stent October 20, 2024 8:00a m 2 W FU October 22, 2024 2:25p m Reason for Visit Admit Date Diabetes August 05, 2024 3:22pm Hypertension August 05, 2024 3:22pm Coronary artery disease September 30, 2024 11:09pm Diabetes mellitus, type 2 September 30 11:09pm Essential hypertension September 30, 2024 11:09pm Diabetes September 30, 2024 11: 09pm Hypertension September 30, 2024 11: 09pm Acute inferior myocardial infarction Apr 2024 11:09pm Left ventricular systolic dysfunction (L VSD) September 30, 2024 11:09pm Obesity (BMI 30.0-34.9) September 30, 2024 11:09pm ST elevation (STEMI) myocard ial infarction involving right coronary artery September 30, 2024 11:09pm Tobacco abuse September 30, 2024 11: 09pm Coronary artery disease October 22, 2024 2 :25pm Diabetes mellitus, type 2 October 22, 2024 2:25pm Essential hypertension October 22, 2024 2: 25pm Hyperlipidemia due to type 2 diabetes me llitus October 22, 2024 2:25pm Chief Complaint Admit Date 3 M FU August 05, 2024 3:22pm chest pain September 30, 2024 10: 00pm chest pain September 30, 2024 11: 02pm chest pain September 30, 2024 11: 09pm chest pain October 01, 2024 8:2 0am chest pain October 01, 2024 5:5 2pm AM EKG October 02, 2024 5:3 5am chest pain October 02, 2024 10: 00am Referral Order October 02, 2024 2:1 4pm PCI w/stenting October 08, 2024 8:1 3am 2 W FU October 22, 2024 2:25p m PCI w/stent October 31, 2024 8:00a m DISCUSS SLEEP APNEA November 04, 2024 10:56 am Reason for Visit Admit Date Diabetes August 05, 2024 3:22pm Hypertension August 05, 2024 3:22pm Coronary artery disease September 30, 2024 11:09pm Essential hypertension September 30, 2024 11:09pm Diabetes mellitus, type 2 September 30 11:09pm Acute inferior myocardial infarction Apr 2024 11:09pm Diabetes September 30, 2024 11: 09pm Left ventricular systolic dysfunction (L VSD) September 30, 2024 11:09pm Obesity (BMI 30.0-34.9) September 30, 2024 11:09pm ST elevation (STEMI) myocard ial infarction involving right coronary artery September 30, 2024 11:09pm Tobacco abuse September 30, 2024 11: 09pm Hypertension September 30, 2024 11: 09pm Coronary artery disease October 22, 2024 2 :25pm Essential hypertension October 22, 2024 2: 25pm Hyperlipidemia due to type 2 diabetes me llitus October 22, 2024 2:25pm Diabetes mellitus, type 2 October 22, 2024 2:25pm History of coronary artery stent placeme nt November 04, 2024 10:56am Sleep apnea in adult November 04, 2024 10:5 6am Chief Complaint Admit Date 3 M FU August 05, 2024 3:22pm chest pain September 30, 2024 10: 00pm chest pain September 30, 2024 11: 02pm chest pain September 30, 2024 11: 09pm chest pain October 01, 2024 8:2 0am chest pain October 01, 2024 5:5 2pm AM EKG October 02, 2024 5:3 5am chest pain October 02, 2024 10: 00am Referral Order October 02, 2024 2:1 4pm PCI w/stenting October 08, 2024 8:1 3am 2 W FU October 22, 2024 2:25p m PCI w/stent October 31, 2024 8:00a m DISCUSS SLEEP APNEA November 04, 2024 10:56 am S/P ([facility] 10/02) November 04, 2024 1:32p m Reason for Visit Admit Date Diabetes August 05, 2024 3:22pm Hypertension August 05, 2024 3:22pm Essential hypertension September 30, 2024 11:09pm Coronary artery disease September 30, 2024 11:09pm Diabetes mellitus, type 2 September 30 11:09pm Acute inferior myocardial infarction Apr 2024 11:09pm Diabetes September 30, 2024 11: 09pm Left ventricular systolic dysfunction (L VSD) September 30, 2024 11:09pm Obesity (BMI 30.0-34.9) September 30, 2024 11:09pm ST elevation (STEMI) myocard ial infarction involving right coronary artery September 30, 2024 11:09pm Tobacco abuse September 30, 2024 11: 09pm Hypertension September 30, 2024 11: 09pm Essential hypertension October 22, 2024 2: 25pm Hyperlipidemia due to type 2 diabetes me llitus October 22, 2024 2:25pm Coronary artery disease October 22, 2024 2 :25pm Diabetes mellitus, type 2 October 22, 2024 2:25pm History of coronary artery stent placeme nt November 04, 2024 10:56am Sleep apnea in adult November 04, 2024 10:5 6am Coronary artery disease November 04, 2024 1 :32pm Diabetes mellitus, type 2 May 27th, 2025 1:32pm Dyslipidemia November 04, 2024 1:32p m History of ST elevation myocardial infar ction (STEMI) November 04, 2024 1:32pm Hypertension November 04, 2024 1:32p m Chief Complaint Admit Date 3 M FU August 05, 2024 3:22pm chest pain September 30, 2024 10: 00pm chest pain September 30, 2024 11: 02pm chest pain September 30, 2024 11: 09pm chest pain October 01, 2024 8:2 0am chest pain October 01, 2024 5:5 2pm AM EKG October 02, 2024 5:3 5am chest pain October 02, 2024 10: 00am Referral Order October 02, 2024 2:1 4pm PCI w/stenting October 08, 2024 8:1 3am 2 W FU October 22, 2024 2:25p m PCI w/stent October 31, 2024 8:00a m DISCUSS SLEEP APNEA November 04, 2024 10:56 am S/P ([facility] 10/02) November 04, 2024 1:32p m PCI w/stent November 17, 2024 8:00a m Family History No Family History Records Found Relationship Condition Age at Onset Recorded Date/T ronnell mother Diabetes mellitus Unknown father Cardiac disease Unknown Advance Directives No Advanced Directives Records Found Advance Directive Response Recorded Date/ Time Advance Directives on File No October 08, 2024 8:24am Living Will No October 08, 2024 8:24am Do you have a Healthcare Power of Transportation Dispatcher? No October 08, 2024 8:24am Do you have a Healthcare Power of Transportation Dispatcher? No September 30, 2024 11:48pm Summary Purpose Additional Source Comments Care Teams (unrecognized sec tion and content) Team Status: Active Member Role Status Dates Dr. Ramses Earl , DO Primary Care Provider Active Team Status: Inactive Member Role Status Dates Dr. Ramses Earl DO Primary Care Provider Active Start: August 05, 2024 End: August 05, 2024 Dr. Ramses Earl DO Attending Provider Active Start: August 05, 2024 End: August 05, 2024 Dr. Ramses Earl DO Referring Provider Active Start: August 05, 2024 End: August 05, 2024 Team Status: Active Member Role Status Dates Dr. Ramses Earl DO Primary Care Provider Active Start: September 30, 2024 Dr. Holden Will MD Emergency Provider Active S tart: September 30, 2024 Dr. Polo Abbott DO Admit Provider Active Start: September 30, 2024 Dr. Polo Abbott DO Attending Provider Active Start: September 30, 2024 Dr. Polo Abbott DO Other Provider Active Start: September 30, 2024 Team Status: Active Member Role Status Dates Dr. Ramses Earl DO Primary Care Provider Active Start: September 30, 2024 Dr. Malcolm Wray MD Attending Provider Active Start: September 30, 2024 Dr. Malcolm Wray MD Referring Provider Active Start: September 30, 2024 Dr. Holden Will MD Emergency Provider Active S tart: September 30, 2024 Dr. Polo Abbott DO Admit Provider Active Start: September 30, 2024 Dr. Polo Abbott DO Other Provider Active Start: September 30, 2024 Team Status: Inactive Member Role Status Dates Dr. Ramses Earl DO Primary Care Provider Active Start: September 30, 2024 End: October 02, 2024 Dr. Malcolm Wray MD Referring Provider Active Start: September 30, 2024 End: October 02, 2024 Dr. Holden Will MD Emergency Provider Active S tart: September 30, 2024 End: October 02, 2024 Dr. Polo Abbott DO Admit Provider Active Start: September 30, 2024 End: October 02, 2024 Dr. Polo Abbott DO Other Provider Active Start: September 30, 2024 End: October 02, 2024 Dr. Wilmer Silver DO Attending Provider Active Start: September 30, 2024 End: October 02, 2024 Team Status: Active Member Role Status Dates Dr. Ramses Earl DO Primary Care Provider Active Start: October 01, 2024 Dr. Malcolm Wray MD Referring Provider Active Start: October 01, 2024 Dr. Holden Will MD Emergency Provider Active S tart: October 01, 2024 Dr. Polo Abbott DO Admit Provider Active Start: October 01, 2024 Dr. Polo Abbott DO Other Provider Active Start: October 01, 2024 Dr. Wilmer Silver , DO Other Provider Active S tart: October 01, 2024 Dr. Deshawn Cormier MD Attending Provider Active S tart: October 01, 2024 Team Status: Active Member Role Status Dates Dr. Ramses Earl DO Primary Care Provider Active Start: October 01, 2024 Dr. Malcolm Wray MD Attending Provider Active Start: October 01, 2024 Team Status: Active Member Role Status Dates Dr. Ramses Earl DO Primary Care Provider Active Start: October 01, 2024 Dr. Holden Will MD Emergency Provider Active S tart: October 01, 2024 Dr. Polo Abbott , DO Admit Provider Active Start: October 01, 2024 Dr. Polo Abbott , DO Other Provider Active Start: October 01, 2024 Dr. Wilmer Silver DO Attending Provider Active Start: October 01, 2024 Dr. Wilmer Silver , DO Other Provider Active S tart: October 01, 2024 Team Status: Active Member Role Status Dates Dr. Ramsse Earl DO Primary Care Provider Active Start: October 02, 2024 End: October 02, 2024 Dr. Malcolm Wray MD Attending Provider Active Start: October 02, 2024 End: October 02, 2024 Dr. Malcolm Wray MD Referring Provider Active Start: October 02, 2024 End: October 02, 2024 Team Status: Active Member Role Status Dates Dr. Ramses Earl DO Primary Care Provider Active Start: October 02, 2024 Dr. Holden Will MD Emergency Provider Active S tart: October 02, 2024 Dr. Polo Abbott , Admit Provider Active Start: October 02, 2024 Dr. Polo Abbott DO Other Provider Active Start: October 02, 2024 Dr. Wilmer Silver DO Attending Provider Active Start: October 02, 2024 Dr. Wilmer Silver , DO Other Provider Active S tart: October 02, 2024 Team Status: Active Member Role Status Dates Dr. Ramses Earl DO Primary Care Provider Active Start: October 02, 2024 Dr. Malcolm Wray MD Attending Provider Active Start: October 02, 2024 Team Status: Inactive Member Role Status Dates Dr. Ramses Earl DO Primary Care Provider Active Start: October 08, 2024 End: October 08, 2024 Dr. Malcolm Wray MD Attending Provider Active Start: October 08, 2024 End: October 08, 2024 Dr. Malcolm Wray MD Referring Provider Active Start: October 08, 2024 End: October 08, 2024 Team Status: Active Member Role Status Dates Dr. Ramses Earl DO Primary Care Provider Active Start: October 20, 2024 Dr. Malcolm Wray MD Attending Provider Active Start: October 20, 2024 Dr. Malcolm Wray MD Referring Provider Active Start: October 20, 2024 Team Status: Inactive Member Role Status Dates Dr. Ramses Earl DO Primary Care Provider Active Start: October 22, 2024 End: October 22, 2024 Dr. Ramses Earl DO Attending Provider Active Start: October 22, 2024 End: October 22, 2024 Dr. Ramses Earl DO Referring Provider Active Start: October 22, 2024 End: October 22, 2024 Team Status: Active Member Role Status Dates Dr. Ramses Earl DO Primary Care Provider Active Start: October 31, 2024 Dr. Malcolm Wray MD Attending Provider Active Start: October 31, 2024 Dr. Malcolm Wray MD Referring Provider Active Start: October 31, 2024 Team Status: Inactive Member Role Status Dates Dr. Ramses Earl DO Primary Care Provider Active Start: November 04, 2024 End: November 04, 2024 Dr. Ramses Earl DO Attending Provider Active Start: November 04, 2024 End: November 04, 2024 Dr. Ramses Earl DO Referring Provider Active Start: November 04, 2024 End: November 04, 2024 Team Status: Inactive Member Role Status Dates Dr. Ramses Earl DO Primary Care Provider Active Start: November 04, 2024 End: November 04, 2024 Dr. Ramses Earl DO Referring Provider Active Start: November 04, 2024 End: November 04, 2024 Dr. Malcolm Wray MD Attending Provider Active Start: November 04, 2024 End: November 04, 2024 Team Status: Inactive Member Role Status Dates Dr. Ramses Earl DO Primary Care Provider Active Start: October 31, 2024 End: November 08, 2024 Dr. Malcolm Wray MD Attending Provider Active Start: October 31, 2024 End: November 08, 2024 Dr. Malcolm Wray MD Referring Provider Active Start: October 31, 2024 End: November 08, 2024 Team Status: Inactive Member Role Status Dates Dr. Ramses Earl DO Primary Care Provider Active Start: November 14, 2024 End: November 14, 2024 Dr. Malcolm Wray MD Attending Provider Active Start: November 14, 2024 End: November 14, 2024 Dr. Malcolm Wray MD Referring Provider Active Start: November 14, 2024 End: November 14, 2024 Team Status: Active Member Role Status Dates Dr. Rmases Earl DO Primary Care Provider Active Start: November 17, 2024 Dr. Malcolm Wray MD Attending Provider Active Start: November 17, 2024 Dr. Malcolm Wray MD Referring Provider Active Start: November 17, 2024 (unrecognized sect ion and content) No Status Records Found INFORMATION SOURCE (unrecogn ized section and content) DATE CREATED AUTHOR 11/24/2024 [facility] FOR RECORDS PERTAINING TO PATIENTS WHO ARE OR HAVE BEEN ENROLLED IN A CHEMICAL DEPENDENCY/SUBSTANCEABUSE PROGRAM, SOME INFORMATION MAY BE OMITTED. This clinical summary was aggregated from multiple sources. Caution should be exercised in using it in the provision of clinical care. This summary normalizes information from multiple sources, and as a consequence, information in this document may materially change the coding, format and clinical context of patient data. In addition, data may be omitted in some cases. CLINICAL DECISIONS SHOULD BE BASED ON THE PRIMARY CLINICAL RECORDS. [employer] provides no warranty or guarantee of the accuracy or completeness of information in this document.
== END | disposition home or self-care (01) ==
LOC: SL 11:22
PROVIDERS: PCP Family Medicine; Referring Provider Family Medicine; Visit Provider Family Medicine
DX: G47.33 Obstructive sleep apnea (adult) (pediatric) (principal)
CPT/HCPCS: 95806

== ENCOUNTER 2024-12-08 08:00 | Outpatient (RCR) | payer OTHER, SELFPAY ==
[2024-11-09 00:27] VITALS: BP 130/70
--- NOTE | 2024-12-05 08:42 | CR.ITP_ITS ---
Exercise - Initial Assessment Physician Prescribed Exercise Modalities: Treadmill, Schwinn Airdyne AD-7 and SciFit Stepper Nutrition - Initial Assessment Weight Mgt (Other Care) Height: 5 ft 7 in Weight:: 218 lb BMI: 34.1 Core - Initial Assessment Hypertension Resting Blood Pressure:: 136/70 [place] [employer] Hypertension Guidelines Psychosocial - Initial Assess Target Goals Target Goals Referral to Behavioral Health PS - Interventions: Yes: Attend Stress Management Classes Patient Health Questionnaire PHQ-9 Screening 60-Day Re-eval Assessment: 1. Little interest or pleasure in doing things: Several days 2. Feeling down, depressed, or hopeless: Not at all 3. Trouble falling or staying asleep, or sleeping too much: Not at all 4. Feeling tired or having little energy: Not at all 5. Poor appetite or overeating: Not at all 6. Feeling bad about yourself -- or that you are a failure or have let yourself or your family down: Not at all 7. Trouble concentrating on things, such as reading the newspaper or watching television: Not at all 8. Moving or speaking so slowly that other people could have noticed. Or the opposite - being so fidgety or restless that you have been moving around a lot more than usual: Not at all 9. Thoughts that you would be better off , or of hurting yourself in some way: Not at all How difficult have these problems made it for you to do your work, take care of things at home, or get along with other people?: Not difficult at all Total Score: 1 Self-Efficacy 6-Item Scale 60-Day Re-eval Assessment: We would like to know how confident you are in doing certain activities. Please select your confidence level for: Fatigue Select Number: 9 Physical Discomfort or Pain Select Number: 9 Emotional Distress Select Number: 9 Other Symptoms or Health Problems Select Number: 9 Different Tasks and Activities Select Number: 9 Medication Select Number: 9 Total Score:: 9 Nutrition Survey Nutrition Survey Instructions Scoring Instructions Exercise - 30-day Assessment Physician Prescribed Exercise Modalities: Treadmill, Schwinn Airdyne AD-7 and SciFit Stepper Exercise - 60-day Assessment Visit Date of Eval: 12/05/24 Session #:: 13 Physician Prescribed Exercise Modalities: Treadmill, Schwinn Airdyne AD-7 and SciFit Stepper Frequency: 3x/week for 12 weeks [36 sessions] Intensity: 60-80% of age predicted maximum heart rate reserve Duration: 30 - 45 minutes Current METSs:: 8.8 Target Heart Rate:: 99-124 Current RPE:: 11-11.5 Maximum Excercise HR:: 129 Resting Blood Pressure: 150/78 Maximum Exercise Blood Pressure: 204/90 EKG Type: NSR to ST w rare PVC and one vent couplet Outcomes & Goals Goals:: Verbalizes understanding of THR, RPE & goal METS by session 6, Documents in home exercise log/reports 30 min aerobic 5 day/wk by DC, Demonstrates accurate pulse taking by DC and Other additional outcome/goals: see below Intervention & Plan Exercise Program Goals: Instruct on personal THR & RPE, Instruct on MET level & personal MET goal, Show patient to take own pulse /validate performance until accurate, Instruct on home exercise and Other additional plan/int Physical Activity Home Exercise Physical Activity - Home Exercise: Safe Exercise, Warm-up, Self-monitoring, Cool-Down, Home Exercise > 30 min Daily and Sitting Time <3 hours/daily Outcomes & Goals Outcomes/Goals: Demonstrates correct Warm-up/exercise Cool-Down (S3) if = 2.5 METs, Verbalizes symptoms of exercise intolerance by Session 3 (S3), Demonstrate safe equipment use (S3) & follows exercise prescrition (6) and Other: See below Intervention & Plan Plan/Intervention: Instruct warm-up & cool-down if exercising at > 2 METs, Instruct on symptoms of exercise intolerance & actions to take, Instruct & monitor on saf, Assess intial functional capacity & safety risk and Other See below 30-day Reassessments 30 day Reassessments:: Progressing Reassessment Notes & Comments:: Proper warm up and cool down explained to pt. Pt demonstrates understanding in his daily sessions. Exercise - 90-day Assessment Physician Prescribed Exercise Modalities: Treadmill, Schwinn Airdyne AD-7 and SciFit Stepper Exercise - Final/Discharge Physician Prescribed Exercise Modalities: Treadmill, Schwinn Airdyne AD-7 and SciFit Stepper Nutrition - 30-Day Assessment Weight Mgt (Other Care) Height: 5 ft 7 in Weight:: 218 lb BMI: 34.1 Nutrition - 60-Day Assessment Program Goals Nutrition Program Goals Patient has diagnosis of Hyperlipidemia (ICD E78)?: Yes Visit Date of Eval: 12/05/24 Session #:: 13 Cholesterol/Lipids (Other Core Measures) Total Triglycerides (mg/dL): 299 Total Cholesterol: 131 LDL Cholesterol (mg/dL): 44 HDL Cholesterol (mg/dL): 41 Determine presence & major risk factors that modify LDL goal: Cigarette smoking, Hypertension or hypertensive medication, Low HDL cholesterol <40 mg/dL*, Family history of premature CHD in Male < 55 years: female <65 yearsFa and Age men > 45 years; women >/= 55 years Outcomes/Goals: Pt IDs own risk factors & lifestyle modifications by Session 10, Verbalizes symptoms of angina & response by session 3., Pt independently manages and Other Additional Outcomes/Goals: Intervention/Plan: Advocate for lipid panel cholesterol medication if applicable, Instruct on personal lipid levels & lipid goals/NCEP guidelines, Instruct on cholesterol and Other additional plan/int Diabetes (Other Core Measures) Diabetes Type: Diagnosis Type II ICD-10 E11 Insulin dependent injection/pump?: No Non-Insulin Dependent?: Yes Do you monitor your blood sugar at home?: No Weight Mgt (Other Care) Height: 5 ft 7 in Weight:: 218 lb BMI: 34.1 Diagnosis Overweight/Obesity BMI> 30% ICD-10 E66: Yes Diagnosis High BMI/Morbid Obesity BMI> 35% ICD-10 Z68: Yes Outcomes/Goals: Pt sets, maintains & shows weight loss goal & trend during rehab and Other additional outcomes/goals Intervention/Plan: Instruct on ideal BMI & set weight loss goal w/patient, Assist pt to ID & incorporate diet changes for weight loss by S9, Refer to Structured Weight Loss program as appropriate, Encourage goal of using 250- 300dcal per session for weight loss and Other additional plan/interventions Healthy Eating Habits Will attend diet classes:: Yes Outcomes/Goals:: Consume diet rich in vegs,fruits,whole grain/high fiber,fish,lean meat, Limit sat/trans fats,cholesterol & added salts & sugars and Other additional outcome/goals: Intervention/Plan:: Assess current eating habits and Other Additional plan/interventions 30-day Reassessments:: Progressing Reassessment Notes & Comments:: Pt scheduled to attend nutrition class. Heart healthy low sodium diet encouraged. Education Gave educational materials for:: Signs & symptoms of hypoglycemia, Signs & symptoms of hyperglycemia, Relate diabetes to coronary artery disease and Healthy eating Core - Final Assessment Hypertension Resting Blood Pressure:: 136/70 [place] [employer] Hypertension Guidelines Core - 60-Day Assessment Visit Date of Eval: 12/05/24 Session #:: 13 Medication Compliance Preventative Medication(s):: Aspirin, Clopidogrel/P2Y12 inhibit, Statin/lipid and Beta dewayne H/O mental health issues: depression, anxiety, or addiction?: No Doesn?t believe in the benefits of treatment?: No Believes medications are unnecessary or harmful?: No Has a concern about medication side effects?: No Expresses concern over the cost of medications?: No Outcomes/Goals: Verbalizes medications,desired effect & common side effects @ DC, Pt self-reports following medication regimen, Keeps card in wallet w/medications listed by DC and Other additional outcome/goals: Interventions/plans: Instruct on medication effects & side effects, Review medication list w/patient every two weeks, Instruct importance of taking meds as ordered & assist problem solving and Other additional 30-day Reassessments:: Progressing Reassessment Notes & Comments:: Pt reports taking meds as prescribed Tobacco Use Tobacco Use: Non-smoker Hypertension Hypertension Diagnosis:: Hypertension ICD-10 I10 Resting Blood Pressure:: 150/78 Resting Blood Pressure:: 136/70 [place] [employer] Hypertension Guidelines Peak Exercise Blood Pressure:: 204/90 Outcomes/Goals: Able to verbalize/achieve optimal blood pressure <130/80, Incorporates diet changes & exercise for blood pressure control by DC and Other additional outcomes/goals Interventions/plan: Instruct on optimal blood pressure, hypertension & medications, Instruct on effects of sodium, alcohol, stress, exercise &hypertension and Other additional plan/interventions 30 day Reassessments:: Progressing Reassessment Notes & Comments:: Pt's BP's are elevated. Pt states he takes his meds just before coming to rehab. Pt encouraged to take his BP's later in the day and report to us. Will report to pt's physician if necessary. Tobacco Cessation Referral Smoking Cessation Referral:: No Individual Education/Counseling:: No Education Schedule Given:: Yes Psychosocial - 30-Day Assess Target Goals Target Goals Referral to Behavioral Health PS - Interventions: Yes: Attend Stress Management Classes Outcomes/Goals: See list Psychosocial Outcomes/Goals:: ID's personal stressors & 2 strategies to manage stress by discharge and Other Additional outcome/goals: Psychosocial - 60-Day Assess VIsit Date of Eval: 12/05/24 Session #:: 13 History of previous Mental disease:: No Target Goals Target Goals Psychosocial Test Tool Used:: PHQ-9 Questionnaire phq-9 Severity See PHQ-9 Score: 1 Referral to Behavioral Health PS - Interventions: Yes: Attend Stress Management Classes Outcomes/Goals: See list Psychosocial Outcomes/Goals:: ID's personal stressors & 2 strategies to manage stress by discharge and Other Additional outcome/goals: Intervention/Plan: See List Interventions/Plan:: Assess stressors,coping strategies & signs of derpression on admission, Instruct/assist pt to develop coping & personal stress Mgt strategies, Refer to Behavioral Health if appropriate, Refer to Physician if appropriate, Instruct patient to recognize signs & symptoms of depression, Instruct patient to recog and Other additional plan/intervention 30-day Reassessments: 30 day Reassessments:: Met Reassessment Notes & Comments:: Pt denies any psychosocial issues at this time. Psychosocial - 90-Day Assess Target Goals Target Goals Referral to Behavioral Health PS - Interventions: Yes: Attend Stress Management Classes Psychosocial - Final Assessmen Target Goals Target Goals Referral to Behavioral Health PS - Interventions: Yes: Attend Stress Management Classes Nutrition - 90-Day Assessment Weight Mgt (Other Care) Height: 5 ft 7 in Weight:: 218 lb BMI: 34.1 Nutrition - Final Assessment Weight Mgt (Other Care) Height: 5 ft 7 in Weight:: 218 lb BMI: 34.1
[2024-12-05 08:54] VITALS: BP 136/70; BP 150/78; BMI 34.1
== END 2024-12-08 23:59 ==
LOC: CR 08:00
PROVIDERS: PCP Family Medicine; Referring Provider Internal Medicine Cardiovascular Disease; Visit Provider Internal Medicine Cardiovascular Disease
DX: I21.19 ST elevation (STEMI) myocardial infarction involving other coronary artery of inferior wall (principal); I21.11 ST elevation (STEMI) myocardial infarction involving right coronary artery; I51.89 Other ill-defined heart diseases; I25.10 Atherosclerotic heart disease of native coronary artery without angina pectoris; R07.9 Chest pain, unspecified
CPT/HCPCS: 93798

== ENCOUNTER 2025-01-05 08:00 | Outpatient (RCR) | payer OTHER, SELFPAY ==
[2024-12-05 08:54] VITALS: BMI 34.1
--- NOTE | 2025-01-02 13:10 | PCM.CR.ITP ---
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 Little interest or pleasure in doing things: Several days 2. Feeling down, depressed, or hopeless: Not at all 3. Trouble falling or staying asleep, or sleeping too much: Not at all 4. Feeling tired or having little energy: Not at all 5. Poor appetite or overeating: Not at all 6. Feeling bad about yourself -- or that you are a failure or have let yourself or your family down: Not at all 7. Trouble concentrating on things, such as reading the newspaper or watching television: Not at all 8. Moving or speaking so slowly that other people could have noticed. Or the opposite - being so fidgety or restless that you have been moving around a lot more than usual: Not at all 9. Thoughts that you would be better off , or of hurting yourself in some way: Not at all How difficult have these problems made it for you to do your work, take care of things at home, or get along with other people?: Not difficult at all Total Score: 1 Self-Efficacy 6-Item Scale 90-Day Re-eval Assessment: We would like to know how confident you are in doing certain activities. Please select your confidence level for: Fatigue Select Number: 9 Physical Discomfort or Pain Select Number: 9 Emotional Distress Select Number: 9 Other Symptoms or Health Problems Select Number: 9 Different Tasks and Activities Select Number: 9 Medication Select Number: 9 Total Score:: 9 Nutrition Survey Nutrition Survey Instructions Scoring Instructions Exercise - 30-day Assessment Physician Prescribed Exercise Modalities: Treadmill, Rower, Schwinn Airdyne AD-7, SciFit Stepper, SciFit Pro-II Ergometer and SciFit Lateral [place] Exercise - 60-day Assessment Physician Prescribed Exercise Modalities: Treadmill, Rower, Schwinn Airdyne AD-7, SciFit Stepper, SciFit Pro-II Ergometer and SciFit Lateral [place] Exercise - 90-day Assessment Visit Date of Eval: 01/02/25 Session #:: 19 Physician Prescribed Exercise Modalities: Treadmill, Rower, Schwinn Airdyne AD-7, SciFit Stepper, SciFit Pro-II Ergometer and SciFit Lateral [place] Frequency: 3x/week for 12 weeks [36 sessions] Intensity: 60-80% of age predicted maximum heart rate reserve Duration: 30 - 45 minutes METs - Progression 0.5-1.0 weekly:: 0.5-1 Current METSs:: 8 Target Heart Rate:: 99-132 Target RPE 12-16:: 12-16 Current RPE:: 11 Maximum Excercise HR:: 125 Resting Blood Pressure: 156/78 Maximum Exercise Blood Pressure: 200/92 EKG Type: NSR to ST with rare PVC Current Physical Activity or Exercising minutes: 30-45 Outcomes & Goals Goals:: Verbalizes understanding of THR, RPE & goal METS by session 6, Documents in home exercise log/reports 30 min aerobic 5 day/wk by DC and Demonstrates accurate pulse taking by DC Intervention & Plan Exercise Program Goals: Instruct on personal THR & RPE, Instruct on MET level & personal MET goal, Show patient to take own pulse /validate performance until accurate and Instruct on home exercise 30-day Reassessments 30 day Reassessments:: Progressing Reassessment Notes & Comments:: Pt continues to meet MET goals and RPE goals as BP allows Physical Activity Home Exercise Physical Activity - Home Exercise: Safe Exercise, Warm-up, Self-monitoring, Cool-Down, Home Exercise > 30 min Daily and Sitting Time <3 hours/daily Outcomes & Goals Outcomes/Goals: Demonstrates correct Warm-up/exercise Cool-Down (S3) if = 2.5 METs, Verbalizes symptoms of exercise intolerance by Session 3 (S3) and Demonstrate safe equipment use (S3) & follows exercise prescrition (6) Intervention & Plan Plan/Intervention: Instruct warm-up & cool-down if exercising at > 2 METs, Instruct on symptoms of exercise intolerance & actions to take, Instruct & monitor on saf and Assess intial functional capacity & safety risk 30-day Reassessments 30 day Reassessments:: Met Exercise - Final/Discharge Physician Prescribed Exercise Modalities: Treadmill, Rower, Schwinn Airdyne AD-7, SciFit Stepper, SciFit Pro-II Ergometer and YesmailFit Lateral [place] Nutrition - 30-Day Assessment Weight Mgt (Other Care) Height: 5 ft 7 in Weight:: 218 lb BMI: 34.1 BMI (Report if calculated above): 34 Nutrition - 60-Day Assessment Weight Mgt (Other Care) Height: 5 ft 7 in Weight:: 218 lb BMI: 34.1 BMI (Report if calculated above): 34 Core - 30-Day Assessment Hypertension [place] [employer] Hypertension Guidelines Reassessment Notes & Comments:: Pt taking all medications as prescribed and encourage to follow low sodium diet Core - Final Assessment Hypertension [place] [employer] Hypertension Guidelines Reassessment Notes & Comments:: Pt taking all medications as prescribed and encourage to follow low sodium diet Core - 90 Day Assessment Visit Date of Eval: 01/02/25 Session #:: 19 Medication Compliance Preventative Medication(s):: Aspirin, Clopidogrel/P2Y12 inhibit, Statin/lipid and Beta dewayne H/O mental health issues: depression, anxiety, or addiction?: No Doesn?t believe in the benefits of treatment?: No Believes medications are unnecessary or harmful?: No Has a concern about medication side effects?: No Expresses concern over the cost of medications?: No Outcomes/Goals: Verbalizes medications,desired effect & common side effects @ DC, Pt self-reports following medication regimen and Keeps card in wallet w/medications listed by DC Interventions/plans: Instruct on medication effects & side effects, Review medication list w/patient every two weeks and Instruct importance of taking meds as ordered & assist problem solving 30-day Reassessments:: Met Reassessment Notes & Comments:: Pt taking all medications as prescribed Tobacco Use Tobacco Use: Non-smoker Hypertension Hypertension Diagnosis:: Hypertension ICD-10 I10 Resting Blood Pressure:: 156/78 [place] [employer] Hypertension Guidelines Peak Exercise Blood Pressure:: 200/92 Outcomes/Goals: Able to verbalize/achieve optimal blood pressure <130/80 and Incorporates diet changes & exercise for blood pressure control by DC Interventions/plan: Instruct on optimal blood pressure, hypertension & medications and Instruct on effects of sodium, alcohol, stress, exercise &hypertension 30 day Reassessments:: Progressing Reassessment Notes & Comments:: Pt taking all medications as prescribed and encourage to follow low sodium diet Tobacco Cessation Referral Smoking Cessation Referral:: No Individual Education/Counseling:: No Education Schedule Given:: Yes Psychosocial - 30-Day Assess Target Goals Target Goals Referral to Behavioral Health PS - Interventions: Yes: Attend Stress Management Classes Psychosocial - 60-Day Assess Target Goals Target Goals Referral to Behavioral Health PS - Interventions: Yes: Attend Stress Management Classes Psychosocial - 90-Day Assess VIsit Date of Eval: 01/02/25 Session #:: 19 History of Emotional Disorders: None Target Goals Target Goals Psychosocial Test Tool Used:: PHQ-9 Questionnaire phq-9 Severity See PHQ-9 Score: 1 Referral to Behavioral Health PS - Interventions: Yes: Attend Stress Management Classes Outcomes/Goals: See list Psychosocial Outcomes/Goals:: ID's personal stressors & 2 strategies to manage stress by discharge Intervention/Plan: See List Interventions/Plan:: Assess stressors,coping strategies & signs of derpression on admission, Instruct/assist pt to develop coping & personal stress Mgt strategies, Refer to Behavioral Health if appropriate, Refer to Physician if appropriate and Instruct patient to recognize signs & symptoms of depression 30-day Reassessments: 30 day Reassessments:: Met Reassessment Notes & Comments:: Pt denies any psychosocial needs at this time Psychosocial - Final Assessmen Target Goals Target Goals Referral to Behavioral Health PS - Interventions: Yes: Attend Stress Management Classes Nutrition - 90-Day Assessment Program Goals Nutrition Program Goals Patient has diagnosis of Hyperlipidemia (ICD E78)?: Yes Visit Date of Eval: 01/02/25 Session #:: 19 Cholesterol/Lipids (Other Core Measures) Triglycerides (mg/dL): 299 Total Cholesterol (mg/dL): 131 LDL Cholesterol (mg/dL): 44 HDL Cholesterol (mg/dL): 41 Determine presence & major risk factors that modify LDL goal: Hypertension or hypertensive medication, Low HDL cholesterol <40 mg/dL* and Age men > 45 years; women >/= 55 years Outcomes/Goals: Pt IDs own risk factors & lifestyle modifications by Session 10, Verbalizes symptoms of angina & response by session 3. and Pt independently manages Intervention/Plan: Advocate for lipid panel cholesterol medication if applicable, Instruct on personal lipid levels & lipid goals/NCEP guidelines and Instruct on cholesterol 30-day Reassessments:: Progressing Diabetes (Other Core Measures) Diabetes Type: Diagnosis Type II ICD-10 E11 Insulin dependent injection/pump?: No Non-Insulin Dependent?: Yes Do you monitor your blood sugar at home?: No Outcomes/Goals:: Able to state symptoms of (hyperglycemia, hypoglycemia ) Intervention/Plan:: Instruct on (importance of monitoring BS at home) 30-day Reassessments:: Progressing Reassessment Notes & Comments:: Pt encouraged to monitor BS at home, pt taking meds as prescribed Weight Mgt (Other Care) Height: 5 ft 7 in Weight:: 218 lb BMI: 34.1 BMI (Report if calculated above): 34 Diagnosis Overweight/Obesity BMI> 30% ICD-10 E66: Yes Diagnosis High BMI/Morbid Obesity BMI> 35% ICD-10 Z68: No Outcomes/Goals: Pt sets, maintains & shows weight loss goal & trend during rehab Intervention/Plan: Instruct on ideal BMI & set weight loss goal w/patient, Assist pt to ID & incorporate diet changes for weight loss by S9, Refer to Structured Weight Loss program as appropriate and Encourage goal of using 250-300dcal per session for weight loss 30 day Reassessments:: Progressing Reassessment Notes & Comments:: Pt active outside of cardiac rehab and attending dietary and healthy living classes Healthy Eating Habits Will attend diet classes:: Yes Outcomes/Goals:: Consume diet rich in vegs,fruits,whole grain/high fiber,fish,lean meat and Limit sat/trans fats,cholesterol & added salts & sugars Intervention/Plan:: Assess current eating habits 30-day Reassessments:: Met Reassessment Notes & Comments:: Pt attending all diet classes. Education Gave educational materials for:: Signs & symptoms of hypoglycemia, Signs & symptoms of hyperglycemia, Relate diabetes to coronary artery disease and Healthy eating Nutrition - Final Assessment Weight Mgt (Other Care) Height: 5 ft 7 in Weight:: 218 lb BMI: 34.1 BMI (Report if calculated above): 34
[2025-01-02 13:14] VITALS: BP 156/78
[2025-01-02 14:14] VITALS: BP 156/78; BMI 34.0; BMI 34.1
== END 2025-01-08 23:59 ==
LOC: CR 08:00
PROVIDERS: PCP Family Medicine; Referring Provider Internal Medicine Cardiovascular Disease; Visit Provider Internal Medicine Cardiovascular Disease
DX: I21.11 ST elevation (STEMI) myocardial infarction involving right coronary artery (principal); I21.19 ST elevation (STEMI) myocardial infarction involving other coronary artery of inferior wall; I51.89 Other ill-defined heart diseases; I25.10 Atherosclerotic heart disease of native coronary artery without angina pectoris; R07.9 Chest pain, unspecified
CPT/HCPCS: 93798

== ENCOUNTER 2025-01-20 19:32 | Emergency (ER) | payer OTHER, SELFPAY ==
[2025-01-02 14:14] VITALS: BMI 34.1
[2025-01-20 19:33] VITALS: BP 162/80; PULSE 86; RESP 16; TEMP 36.5; O2SAT 95; BMI 33.9
--- NOTE | 2025-01-20 19:38 | EDS_ITS ---
HPI History of Present Illness Chief Complaint: Syncope Informant: patient Onset/Context/Timing Onset: Today Context: Sudden Onset Timing: Continuous Quality: Lightheaded, weak Location: Generalized Worsened by: Nothing Relieved by: Drinking water Narrative Narrative: Patient presents with a near syncopal episode that occurred today. Patient states he was at the [place] station and when he felt lightheaded. Daughter states that he appeared to be pale. Patient states he felt weak like he might pass out. Patient states he drank some water and felt better after that. Patient denies any chest pain. Patient states he did have some shortness of breath with it. Patient denies any palpitations. Patient denies any cough. Patient denies any headache. [facility] Medical History Biceps tendon tear Diabetes mellitus, type 2 ST elevation (STEMI) myocardial infarction involving right coronary artery (09/30/24) Tobacco abuse Obesity (BMI 30.0-34.9) Left ventricular systolic dysfunction (LVSD) Acute inferior myocardial infarction Home Medications ?Medication ?Instructions ?Recorded ?Last Taken ?Type fosinopril 10 mg tablet 10 mg PO DAILY #90 tabs 03/12 03/04 Unknown Rx aspirin 81 mg tablet,delayed 81 mg PO DAILY@0800 #0 ta bs 10/02/24 Unknown Rx release empagliflozin 10 mg tablet 10 mg PO DAILY #30 tabs Unknown Rx (Jardiance) pioglitazone 30 mg tablet 30 mg PO DAILY #90 TABLETS 0 11/11/24 Unknown Rx atorvastatin 80 mg tablet 80 mg PO DAILY #90 tabs 11/10 Unknown Rx carvedilol 3.125 mg tablet 3.125 mg PO BID #180 TABLET S 11/28/24 Unknown Rx clopidogrel 75 mg tablet 75 mg PO DAILY #90 TABLETS 0 11/28/24 Unknown Rx glimepiride 2 mg tablet 2 mg PO DAILY #90 TABLETS Unknown Rx metformin 500 mg tablet 500 mg PO BID #180 TABLETS 0 11/28/24 Unknown Rx Allergy/AdvReac Type Severity Reaction Status Date / Time No Known Allergies Allergy Verified 01/20/25 19:34 Family History Mother Diabetes Father Heart disease Surgical History History of coronary artery stent placement (09/30/24) Social History Smoking Status: Current every day smoker tobacco type: smokeless tobacco Smokeless tobacco user: chewing tobacco how long ago did patient quit smokin07/25/17 alcohol intake: current alcohol intake frequency: holidays/special occasions only Alcohol type: beer substance use type: does not use what type of physical activity do you participate in: walking frequency: 1-2 times per week ROS ROS ED Constitutional Constitutional ED: Denies chills or fever(s) Eyes Eyes: Denies blurry vision or change in vision ENT ENT ED: Denies rhinorrhea or sore throat Cardiovascular Cardiovascular: Denies chest pain or palpitations Respiratory/Chest Respiratory/Chest: Reports dyspnea; Denies cough Gastrointestinal Gastrointestinal: Denies nausea or vomiting Genitourinary Genitourinary ED: Denies dysuria or hematuria Musculoskeletal Musculoskeletal: Denies back pain or neck pain Integumentary Denies abscess or rash Neurologic Neurologic: Reports weakness; Denies headache(s) Allergic/Immunologic Allergic/Immunologic ED: Denies mouth swelling or urticaria EXAM Physical Exam Const Vital Signs: 01/20/25 19:33 01/20/25 19:48 01/20/25 20:34 Temperature 97.7 F L Temperature Source Oral Pulse Rate 86 Pulse Rate [Lying] 87 Pulse Rate [Sitting (for 1 minute prior to obtaining)] 90 Pulse Rate [Standing (for 1 minute prior to obtaining)] 87 Respiratory Rate 16 Respiratory Effort Normal Non-Labored Respiratory Pattern Normal Blood Pressure 162/80 H Blood Pressure [Lying] 145/78 H Blood Pressure [Sitting (for 1 minute prior to obtaining)] 150/91 H Blood Pressure [Standing (for 1 minute prior to obtaining)] 154/74 H Blood Pressure Mean 107 Blood Pressure Mean [Lying] 100 Blood Pressure Mean [Sitting (for 1 minute prior to obtaining)] 110 Blood Pressure Mean [Standing (for 1 minute prior to obtaining)] 100 Pulse Ox 95 01/20/25 21:26 Temperature 98.3 F Temperature Source Pulse Rate 84 Pulse Rate [Lying] Pulse Rate [Sitting (for 1 minute prior to obtaining)] Pulse Rate [Standing (for 1 minute prior to obtaining)] Respiratory Rate 12 Respiratory Effort Respiratory Pattern Blood Pressure 132/74 H Blood Pressure [Lying] Blood Pressure [Sitting (for 1 minute prior to obtaining)] Blood Pressure [Standing (for 1 minute prior to obtaining)] Blood Pressure Mean 93 Blood Pressure Mean [Lying] Blood Pressure Mean [Sitting (for 1 minute prior to obtaining)] Blood Pressure Mean [Standing (for 1 minute prior to obtaining)] Pulse Ox 98 Positive well nourished and well developed General Appearance ED: well developed and NAD Neck supple and no JVD Resp normal respiratory effort and clear to auscultation bilaterally Cardio regular rate and regular rhythm GI non-tender and non-distended Palpation: soft Extremity normal to inspection General Extremety ED: Negative for edema or tenderness General Extremity: Negative for edema Neuro oriented x3, CN's II-XII intact bilaterally and no sensory deficits noted Sensorium / Orientation: alert Motor Exam: strength 5/5 throughout Psych mental status grossly normal MDM MDM MDM Narrative Medical decision making narrative: Differential diagnosis includes vasovagal syncope, electrolyte abnormality, dehydration, cardiac dysrhythmia, cardiac ischemia, and anxiety. EKG will be obtained to assess for cardiac dysrhythmia and cardiac ischemia. CT scan of the brain will be obtained to assess for intracranial bleeding and stroke. CBC will be obtained to assess for leukocytosis or anemia. Basic metabolic profile will be obtained to assess for electrolyte abnormality and renal function. High- sensitivity troponin will be obtained to assess for cardiac ischemia. Orthostatic vital signs will be obtained to assess for hypovolemia and dehydration. Lab Data Attestation: I reviewed the patient's lab results. Lab results narrative: CBC was reviewed and was within normal limits. Basic metabolic profile was reviewed. BUN was slightly elevated at 22. Creatinine was normal at 1.05. CO2 is slightly low at 18.9. High-sensitivity troponin was reviewed and was normal at 8. Urinalysis was reviewed. There is no evidence of urinary tract infection or hematuria. Labs: Laboratory Results - last 24 hr 01/20/25 01/20/25 20:09 20:10 WBC 9.9 RBC 4.83 Hgb 15.3 Hct 43.0 MCV 89.0 MCH 31.7 MCHC 35.6 RDW Std Deviation 40.8 RDW Coeff of Sue 12.5 Plt Count 244 MPV 9.4 Immature Gran % (Auto) 0.400 Neut % (Auto) 63.2 Lymph % (Auto) 25.9 [place] % (Auto) 8.5 Eos % (Auto) 1.4 Baso % (Auto) 0.6 Absolute Neuts (auto) 6.3 Absolute Lymphs (auto) 2.57 Nucleated RBC % 0 Sodium 133 Potassium 3.9 Chloride 97 L Carbon Dioxide 18.9 L Anion Gap 17 H BUN 22 H Creatinine 1.05 Estim Creat Clear Calc 88.74 Est GFR (MDRD) Non-Af 84 BUN/Creatinine Ratio 21.0 H Glucose 281 H Calcium 9.2 Troponin T High Sens 8 D Urine Color Yellow Urine Clarity Clear Urine pH 6.0 Ur Specific [place] 1.015 Urine Protein 15 H Urine Glucose (UA) 1000 H Urine Ketones 15 H Urine Occult Blood Negative Urine Nitrite Negative Urine Bilirubin Negative Urine Urobilinogen Normal Ur Leukocyte Esterase Negative Urine RBC 0-5 SEEN Urine WBC 0-5 SEEN Ur Squamous Epith Cells 0-5 SEEN Urine Bacteria 0 SEEN Urine Mucus 0 SEEN ABG Data Attestation: I personally reviewed and interpreted this ABG as follows: Interpretation: Venous blood gas was reviewed. pH was 7.45. pO2 is 88, bicarb was 26, CO2 was 27. ABG results: ABG 01/20/25 21:21 Specimen Type LENA VBG pH 7.45 H VBG pO2 88 H VBG HCO3 26 VBG Total CO2 27 VBG O2 Sat (Calc) 97 H VBG Base Excess 2 POC Mix VBG pCO2 Pt Tmp 37.0 L O2 Delivery Device Room Air Blood Gas Notified Whom ED MD Blood Gas Notified Time 2120 EKG Initial EKG: Attestation: I personally reviewed and interpreted this EKG as follows: Interpretation: Sinus Rhythm (82) and Non-Specific ST Changes Comments: EKG was obtained. On my independent interpretation, it shows normal sinus rhythm with a rate of 82. NC interval was slightly prolonged at 240 ms. QRS interval was normal at 116 ms. QTc interval is normal at 443 ms. There is left axis deviation at -31. There is left ventricular hypertrophy with nonspecific ST-T wave changes. Prior EKG tracings: available for review Prior: Unchanged (10/02/2024) Treatment and Re-Evaluation :: Patient was given IV fluids. Patient was advised of his findings. Patient was instructed to drink plenty of fluids. Patient was instructed to rest. Patient was instructed to follow-up with his primary care physician in 5 to 7 days. Patient was instructed to return if worse in any way. Patient and family understood and were agreeable with the plan. All questions were answered. Discharge Plan Triage Chief Complaint: Syncope ED Provider: Monty Loyola Dx/Rx/DC Orders Clinical Impression: Near syncope, Essential hypertension, Diabetes mellitus, type 2 Instructions: ED Near-Fainting, Uncertain Cause Prescriptions: No Action fosinopril 10 mg tablet 10 mg PO DAILY Qty: 90 3RF Jardiance 10 mg tablet 10 mg PO DAILY Qty: 30 0RF aspirin 81 mg Tablet,Delayed Release (Dr/Ec) 81 mg PO DAILY@0800 Qty: 0 0RF pioglitazone 30 mg tablet 30 mg PO DAILY Qty: 90 0RF atorvastatin 80 mg tablet 80 mg PO DAILY Qty: 90 0RF carvedilol 3.125 mg tablet 3.125 mg PO BID Qty: 180 0RF clopidogrel 75 mg tablet 75 mg PO DAILY Qty: 90 0RF glimepiride 2 mg tablet 2 mg PO DAILY Qty: 90 0RF metformin 500 mg tablet 500 mg PO BID Qty: 180 0RF Primary Care Provider: Ramses Earl Referrals: Ramses Earl, [Primary Care Provider] - Print Language: [place] Disposition Disposition: Home, Self Care Discharge Date/Time: 01/20/25 21:26
--- NOTE | 2025-01-20 19:48 | EKG12_ITS ---
Test Reason : DYSRHYTHMIA Blood Pressure : */* mmHG Vent. Rate : 82 BPM Atrial Rate : 82 BPM P-R Int : 204 ms QRS Dur : 116 ms QT Int : 380 ms P-R-T Axes : 50 -31 42 degrees QTcB Int : 443 ms Normal sinus rhythm Possible Left atrial enlargement Left axis deviation Left ventricular hypertrophy with QRS widening ( Isaias product ) Possible Inferior infarct , age undetermined Abnormal ECG Confirmed by Misael Arizmendi ([id number]), news copy editor ELEN GIL ([id number]) on 01/21/2025 9:42:19 AM Referred By: Confirmed By: Misael Arizmendi
[2025-01-20] MEDS: 0.9% Normal Saline (1000mL) 1,000 ML 1000 ML IV (20:11)
[2025-01-20 20:20] LABS: Mucous, Urine 0 SEEN /hpf (<or=2+)
[2025-01-20 20:24] LABS: Hematocrit 43.0 % (40-54); Hemoglobin 15.3 g/dL (13.0-16.5); Immature Granulocytes Count 0.040 X10^3/uL (0.0-0.0); Mean Corp Hgb Conc 35.6 g/dL (32-36); Mean Corpuscular Volume 89.0 fL (80-94); Mean Platelet Vol. 9.4 fl (6.2-12.0); NRBC Flagged by Analyzer 0 % (0-5); Platelet Count 244 K/mm3 (150-450); RBC Distribution Width CV 12.5 % (11.6-14.6); RBC Distribution Width SD 40.8 fl (35.1-43.9); Red Blood Count 4.83 M/mm3 (4.6-6.2); White Blood Count 9.9 K/mm3 (4.4-11.0)
[2025-01-20 20:24] LABS: Color, Urine Yellow (Yellow); Glucose, Dipstick 1000 mg/dl (Normal); Ketone-Dipstick 15 mg/dl (Negative); Leukocyte Esterase-Dipstick Negative /ul (Negative); Nitrite-Dipstick Negative (Negative); Occult Blood-Urine Negative /ul (Negative); Protein-Dipstick 15 mg/dl (Negative); Specific Gravity, Urine 1.015 (1.002-1.030); Urine Bilirubin Dipstick Negative (Negative)
[2025-01-20 20:34] VITALS: BP 145/78; BP 150/91; BP 154/74; PULSE 87; PULSE 90
[2025-01-20 20:51] LABS: Anion Gap 17 (5-15); BUN 22 mg/dL (4-19); BUN/Creat Ratio 21.0 RATIO (10-20); Calcium,Total 9.2 mg/dL (7.6-11.0); Carbon Dioxide 18.9 mmol/L (21.0-32.0); Chloride 97 mmol/L (98-108); Estimated Creatinine Clearance 88.74 ml/min (50-250); Glucose 281 mg/dL (70-99); Potassium 3.9 mmol/L (3.3-5.1)
[2025-01-20 21:01] LABS: Red Blood Cells-Urine 0-5 SEEN /hpf (0-5); Squamous Epithelial Cells - UA 0-5 SEEN /hpf (0-5)
[2025-01-20 21:06] LABS: Troponin T High Sensitivity 8 ng/L (<=22)
[2025-01-20 21:26] VITALS: BP 132/74; PULSE 84; RESP 12; TEMP 36.8; O2SAT 98
[2025-01-21 07:27] LABS: SITE Not entered; VBG BASE EXCESS 2 mmol/L (-1.0-3.5); VBG PO2 88 mmHg (25-40); VBG SO2 97 % (50-70); VBG TCO2 27 mmol/L (23-33)
== END 2025-01-20 21:26 | disposition home or self-care (01) ==
PROVIDERS: Emergency Provider Emergency Medicine; PCP Family Medicine; Visit Provider Emergency Medicine
DX: R55 Syncope and collapse (principal); E11.9 Type 2 diabetes mellitus without complications; I10 Essential (primary) hypertension; I25.2 Old myocardial infarction; Z79.82 Long term (current) use of aspirin; Z79.899 Other long term (current) drug therapy; Z79.84 Long term (current) use of oral hypoglycemic drugs; F17.220 Nicotine dependence, chewing tobacco, uncomplicated
CPT/HCPCS: 80048; 81001; 82803; 84484; 85025; 93005; 99285; A4216

== ENCOUNTER 2025-02-06 08:00 | Outpatient (RCR) | payer OTHER, SELFPAY ==
[2025-01-02 14:14] VITALS: BMI 34.1
--- NOTE | 2025-01-30 08:02 | CR.ITP_ITS ---
Exercise - Initial Assessment Physician Prescribed Exercise Modalities: Treadmill, Schwinn Airdyne AD-7 and SciFit Stepper Nutrition - Initial Assessment Program Goals Nutrition Program Goals Patient has diagnosis of Hyperlipidemia (ICD E78)?: Yes Weight Mgt (Other Care) Height: 5 ft 7 in Weight:: 218 lb BMI: 34.1 Core - Initial Assessment Hypertension Resting Blood Pressure:: 122/70 [employer] Hypertension Guidelines Psychosocial - Initial Assess Target Goals Target Goals Psychosocial Test phq-9 Severity See PHQ-9 Score: 1 Referral to Behavioral Health PS - Interventions: Yes: Attend Stress Management Classes and No: Referral to Behavioral Health if PHQ-9 score >9: Patient Health Questionnaire PHQ-9 Screening Discharge Assessment: 1. Little interest or pleasure in doing things: Several days 2. Feeling down, depressed, or hopeless: Not at all 3. Trouble falling or staying asleep, or sleeping too much: Not at all 4. Feeling tired or having little energy: Not at all 5. Poor appetite or overeating: Not at all 6. Feeling bad about yourself -- or that you are a failure or have let yourself or your family down: Not at all 7. Trouble concentrating on things, such as reading the newspaper or watching television: Not at all 8. Moving or speaking so slowly that other people could have noticed. Or the opposite - being so fidgety or restless that you have been moving around a lot more than usual: Not at all 9. Thoughts that you would be better off , or of hurting yourself in some way: Not at all How difficult have these problems made it for you to do your work, take care of things at home, or get along with other people?: Not difficult at all Total Score: 1 Self-Efficacy 6-Item Scale Discharge Assessment: We would like to know how confident you are in doing certain activities. Please select your confidence level for: Fatigue Physical Discomfort or Pain Select Number: 9 Emotional Distress Select Number: 9 Other Symptoms or Health Problems Select Number: 9 Different Tasks and Activities Select Number: 9 Medication Select Number: 9 Nutrition Survey Nutrition Survey Instructions Scoring Instructions Exercise - 30-day Assessment Physician Prescribed Exercise Modalities: Treadmill, Schwinn Airdyne AD-7 and SciFit Stepper Exercise - 60-day Assessment Physician Prescribed Exercise Modalities: Treadmill, Schwinn Airdyne AD-7 and SciFit Stepper Exercise - 90-day Assessment Physician Prescribed Exercise Modalities: Treadmill, Schwinn Airdyne AD-7 and SciFit Stepper Exercise - Final/Discharge Visit Date of Juju: 01/30/25 Session #:: 26 (still has 10 sessions left) Physician Prescribed Exercise Modalities: Treadmill, Schwinn Airdyne AD-7 and SciFit Stepper Frequency: 3x/week for 12 weeks [36 sessions] Intensity: 60-80% of age predicted maximum heart rate reserve Duration: 30 - 45 minutes METs - Progression 0.5-1.0 weekly:: 1 Current METSs:: 11 Target Heart Rate:: 99-132 Target RPE 12-16:: 12-16 Current RPE:: 13 Maximum Heart Rate:: 128 Resting Blood Pressure: 122/70 Maximum Exercise Blood Pressure: 186/88 EKG Type: NSR to sinus tachycardia with first degree block. rare pvc. Current Physical Activity or Exercising minutes: 30 mins Outcomes & Goals Goals:: Verbalizes understanding of THR, RPE & goal METS by session 6, Documents in home exercise log/reports 30 min aerobic 5 day/wk by DC and Demonstrates accurate pulse taking by DC Intervention & Plan Exercise Program Goals: Instruct on personal THR & RPE, Instruct on MET level & personal MET goal, Show patient to take own pulse /validate performance until accurate and Instruct on home exercise 30-day Reassessments 30 day Reassessments:: Met Reassessment Notes & Comments:: is continuing to increase exercise workloads weekly. does adequate warm up and cool down. Physical Activity Home Exercise Physical Activity - Home Exercise: Safe Exercise, Warm-up, Self-monitoring, Cool-Down, Home Exercise > 30 min Daily and Sitting Time <3 hours/daily Outcomes & Goals Outcomes/Goals: Demonstrates correct Warm-up/exercise Cool-Down (S3) if = 2.5 METs, Verbalizes symptoms of exercise intolerance by Session 3 (S3) and Dem onstrate safe equipment use (S3) & follows exercise prescrition (6) Intervention & Plan Plan/Intervention: Instruct warm-up & cool-down if exercising at > 2 METs, Instruct on symptoms of exercise intolerance & actions to take, Instruct & monitor on saf and Assess intial functional capacity & safety risk 30-day Reassessments 30 day Reassessments:: Met Nutrition - 30-Day Assessment Weight Mgt (Other Care) Height: 5 ft 7 in Weight:: 218 lb BMI: 34.1 Nutrition - 60-Day Assessment Weight Mgt (Other Care) Height: 5 ft 7 in Weight:: 218 lb BMI: 34.1 Core - Final Assessment Visit Date of Eval: 01/30/25 Session #:: 26 Medication Compliance Preventative Medication(s):: Aspirin, Clopidogrel/P2Y12 inhibit, Statin/lipid and Beta dewayne H/O mental health issues: depression, anxiety, or addiction?: No Doesn?t believe in the benefits of treatment?: No Believes medications are unnecessary or harmful?: No Has a concern about medication side effects?: No Expresses concern over the cost of medications?: No Outcomes/Goals: Verbalizes medications,desired effect & common side effects @ DC, Pt self-reports following medication regimen and Keeps card in wallet w/medications listed by DC Interventions/plans: Instruct on medication effects & side effects, Review medication list w/patient every two weeks and Instruct importance of taking meds as ordered & assist problem solving 30-day Reassessments:: Met Reassessment Notes & Comments:: taking all medications as prescribed. Tobacco Use Tobacco Use: Chew Outcomes/Goals: Smoking cessation achieved or maintained by discharge, Identify aids/strategies for achieving smoking cessation by session 6 and Other additional outcome/goals Interventions/plan: Instruct on effects of smoking & provide smoking cessation resource, Assist pt to set quit date & provide encouragement, Assist pt to develop strategies to achieve/maintain quit date and Assist pt w/nicotine replacement & medication for cessation success 30 day Reassessments:: Progressing Reassessment Notes & Comments:: encouraged to quit chew tobacco. educated him on the negative effects. he was unaware of the negative effects of chew, but now e xpresses understanding of why he should quit. Hypertension Hypertension Diagnosis:: Hypertension ICD-10 I10 Resting Blood Pressure:: 122/70 [employer] Hypertension Guidelines Peak Exercise Blood Pressure:: 186/88 Outcomes/Goals: Able to verbalize/achieve optimal blood pressure <130/80 and Incorporates diet changes & exercise for blood pressure control by DC Interventions/plan: Instruct on optimal blood pressure, hypertension & medications and Instruct on effects of sodium, alcohol, stress, exercise &hypertension 30 day Reassessments:: Met Tobacco Cessation Referral Education Schedule Given:: Yes Core - 60-Day Assessment Tobacco Use Reassessment Notes & Comments:: encouraged to quit chew tobacco. educated him on the negative effects. he was unaware of the negative effects of chew, but now expresses understanding of why he should quit. Hypertension Resting Blood Pressure:: 122/70 [place] [employer] Hypertension Guidelines Psychosocial - 30-Day Assess Target Goals Target Goals Referral to Behavioral Health PS - Interventions: Yes: Attend Stress Management Classes and No: Referral to Behavioral Health if PHQ-9 score >9: Psychosocial - 60-Day Assess Target Goals Target Goals Referral to Behavioral Health PS - Interventions: Yes: Attend Stress Management Classes and No: Referral to Behavioral Health if PHQ-9 score >9: Psychosocial - 90-Day Assess Target Goals Target Goals Referral to Behavioral Health PS - Interventions: Yes: Attend Stress Management Classes and No: Referral to Behavioral Health if PHQ-9 score >9: Psychosocial - Final Assessmen VIsit Date of Eval: 01/30/25 Session #:: 26 History of previous Mental disease:: No Target Goals Target Goals Psychosocial Test phq-9 Severity See PHQ-9 Score: 1 Referral to Behavioral Health PS - Interventions: Yes: Attend Stress Management Classes and No: Referral to Behavioral Health if PHQ-9 score >9: Outcomes/Goals: See list Psychosocial Outcomes/Goals:: ID's personal stressors & 2 strategies to manage stress by discharge and Other Additional outcome/goals: Intervention/Plan: See List Interventions/Plan:: Assess stressors,coping strategies & signs of derpression on admission, Instruct/assist pt to develop coping & personal stress Mgt str ategies, Refer to Behavioral Health if appropriate, Refer to Physician if appropriate, Instruct patient to recognize signs & symptoms of depression, Instruct patient to recog and Other additional plan/intervention 30-day Reassessments: 30 day Reassessments:: Met Reassessment Notes & Comments:: no psychsocial concerns at this time. attending emotion/stress classes offered through rehab. Nutrition - 90-Day Assessment Weight Mgt (Other Care) Height: 5 ft 7 in Weight:: 218 lb BMI: 34.1 Nutrition - Final Assessment Program Goals Patient has diagnosis of Hyperlipidemia (ICD E78)?: Yes Visit Date of Assessment:: 01/30/25 Session #:: 26 Cholesterol/Lipids (Other Core Measures) Determine presence & major risk factors that modify LDL goal: Hypertension or hypertensive medication, Low HDL cholesterol <40 mg/dL*, Family history of premature CHD in Male < 55 years: female <65 yearsFa and Age men > 45 years; women >/= 55 years Outcomes/Goals: Pt IDs own risk factors & lifestyle modifications by Session 10, Verbalizes symptoms of angina & response by session 3. and Pt independently manages Intervention/Plan: Advocate for lipid panel cholesterol medication if applicable, Instruct on personal lipid levels & lipid goals/NCEP guidelines, Instruct on cholesterol and Other additional plan/int Referral to dietitian:: No 30-day Reassessments:: Progressing Reassessment Notes & Comments:: encouraged to follow heart healthy diet. Diabetes (Other Core Measures) Diabetes Type: Diagnosis Type II ICD-10 E11 Insulin dependent injection/pump?: No Non-Insulin Dependent?: Yes Do you monitor your blood sugar at home?: No Outcomes/Goals:: Able to state symptoms of, Able to state, Able to state and Other additional Intervention/Plan:: Instruct on, Refer to, Instruct on and Other 30-day Reassessments:: Met Reassessment Notes & Comments:: taking medications as prescribed. Weight Mgt (Other Care) Height: 5 ft 7 in Weight:: 218 lb BMI: 34.1 Diagnosis Overweight/Obesity BMI> 30% ICD-10 E66: Yes Outcomes/Goals: Pt sets, maintains & shows weight loss goal & trend during rehab Intervention/Plan: Instruct on ideal BMI & set weight loss goal w/patient, Assist pt to ID & incorporate diet changes for weight loss by S9, Refer to Structured Weight Loss program as appropriate and Encourage goal of using 250-300dcal per session for weight loss 30 day Reassessments:: Progressing Reassessment Notes & Comments:: continuing to work towards weight loss goals. is active outside of cardiac rehab. Healthy Eating Habits Will attend diet classes:: Yes Outcomes/Goals:: Consume diet rich in vegs,fruits,whole grain/high fiber,fish,lean meat and Limit sat/trans fats,cholesterol & added salts & sugars Intervention/Plan:: Assess current eating habits and Other Additional melvina n/interventions 30-day Reassessments:: Met Reassessment Notes & Comments:: attending diet classes. low sodium diet encouraged. Education Gave educational materials for:: Signs & symptoms of hypoglycemia, Signs & symptoms of hyperglycemia, Relate diabetes to coronary artery disease and Healthy eating
[2025-01-30 08:06] VITALS: BP 122/70
[2025-01-30 08:18] VITALS: BMI 34.1
[2025-01-30 08:42] VITALS: BP 122/70
== END 2025-02-08 23:59 ==
LOC: CR 08:00
PROVIDERS: PCP Family Medicine; Referring Provider Internal Medicine Cardiovascular Disease; Visit Provider Internal Medicine Cardiovascular Disease
DX: I21.11 ST elevation (STEMI) myocardial infarction involving right coronary artery; I51.89 Other ill-defined heart diseases; I25.10 Atherosclerotic heart disease of native coronary artery without angina pectoris; R07.9 Chest pain, unspecified
CPT/HCPCS: 93798

== ENCOUNTER 2025-03-06 08:00 | Outpatient (RCR) | payer OTHER, SELFPAY ==
[2025-01-30 08:18] VITALS: BMI 34.1
--- NOTE | 2025-02-27 09:22 | CR.ITP_ITS ---
Exercise - Initial Assessment Physician Prescribed Exercise Modalities: Treadmill, Lisa Kevin AD-7 and SciFit Stepper Nutrition - Initial Assessment Program Goals Nutrition Program Goals Patient has diagnosis of Hyperlipidemia (ICD E78)?: Yes Weight Mgt (Other Care) Height: 5 ft 7 in Weight:: 215 lb 8 oz BMI: 33.7 BMI (Report if calculated above): 33 Core - Initial Assessment Hypertension Resting Blood Pressure:: 132/72 [place] [employer] Hypertension Guidelines Psychosocial - Initial Assess Psychosocial Test phq-9 Severity See PHQ-9 Score: 1 Referral to Behavioral Health PS - Interventions: Yes: Attend Stress Management Classes Patient Health Questionnaire PHQ-9 Screening Discharge Assessment: 1. Little interest or pleasure in doing things: Several days 2. Feeling down, depressed, or hopeless: Not at all 3. Trouble falling or staying asleep, or sleeping too much: Not at all 4. Feeling tired or having little energy: Not at all 5. Poor appetite or overeating: Not at all 6. Feeling bad about yourself -- or that you are a failure or have let yourself or your family down: Not at all 7. Trouble concentrating on things, such as reading the newspaper or watching television: Not at all 8. Moving or speaking so slowly that other people could have noticed. Or the opposite - being so fidgety or restless that you have been moving around a lot more than usual: Not at all 9. Thoughts that you would be better off , or of hurting yourself in some way: Not at all How difficult have these problems made it for you to do your work, take care of things at home, or get along with other people?: Not difficult at all Total Score: 1 Self-Efficacy 6-Item Scale Discharge Assessment: We would like to know how confident you are in doing certain activities. Please select your confidence level for: Fatigue Select Number: 9 Physical Discomfort or Pain Select Number: 9 Emotional Distress Select Number: 9 Other Symptoms or Health Problems Select Number: 9 Different Tasks and Activities Select Number: 9 Medication Select Number: 9 Total Score:: 9 Nutrition Survey Nutrition Survey Discharge: Have you lost >10 lbs over the past 2 months without trying?: No Are you following a special diet at home for diabetes, low fat, or low salt?: No Are you interested in meeting with a dietitian for help understanding your diet?: No Do you eat less than 3 meals a day?: No Do you eat fatty meats (martin, sausage, ribs, etc), fried foods, desserts, large amounts of salad dressings, margarine, butter, or cheese most days?: Yes Do you have food allergies? [Enter types in comment field]: No Do you eat in restaurants more than 3 times a week?: Yes Do you season food with salt, seasoning salt, or garlic salt?: Yes Do you used canned, boxed, frozen meals, or soups, seasoning packets?: No Total Score:: 3 Exercise - 30-day Assessment Physician Prescribed Exercise Modalities: Treadmill, Schwinn Airdyne AD-7 and SciFit Stepper Exercise - 60-day Assessment Physician Prescribed Exercise Modalities: Treadmill, Schwinn Airdyne AD-7 and SciFit Stepper Exercise - 90-day Assessment Physician Prescribed Exercise Modalities: Treadmill, Schwinn Airdyne AD-7 and SciFit Stepper Exercise - Final/Discharge Visit Date of Eval: 02/27/25 Session #:: 33 Physician Prescribed Exercise Modalities: Treadmill, Schwinn Airdyne AD-7 and SciFit Stepper Frequency: 3x/week for 12 weeks [36 sessions] Intensity: 60-80% of age predicted maximum heart rate reserve Duration: 30 - 45 minutes METs - Progression 0.5-1.0 weekly:: 0.5-1.0 Current METSs:: 7 Target Heart Rate:: 99-132 Target RPE 12-16:: 12-16 Current RPE:: 13 Maximum Heart Rate:: 139 Resting Blood Pressure: 132/72 Maximum Exercise Blood Pressure: 188/98 EKG Type: NSR to ST with 1DAVB rare pvc/pac Outcomes & Goals Goals:: Verbalizes understanding of THR, RPE & goal METS by session 6, Documents in home exercise log/reports 30 min aerobic 5 day/wk by DC and Demonstrates accurate pulse taking by DC Intervention & Plan Exercise Program Goals: Instruct on personal THR & RPE, Instruct on MET level & personal MET goal, Show patient to take own pulse /validate performance until accurate and Instruct on home exercise 30-day Reassessments 30 day Reassessments:: Met Physical Activity Home Exercise Physical Activity - Home Exercise: Safe Exercise, Warm-up, Self-monitoring, Cool-Down, Home Exercise > 30 min Daily and Sitting Time <3 hours/daily Outcomes & Goals Outcomes/Goals: Demonstrates correct Warm-up/exercise Cool-Down (S3) if = 2.5 METs, Verbalizes symptoms of exercise intolerance by Session 3 (S3) and Demonstrate safe equipment use (S3) & follows exercise prescrition (6) Intervention & Plan Plan/Intervention: Instruct warm-up & cool-down if exercising at > 2 METs, Instruct on symptoms of exercise intolerance & actions to take, Instruct & monitor on saf and Assess intial functional capacity & safety risk 30-day Reassessments 30 day Reassessments:: Met Nutrition - 30-Day Assessment Weight Mgt (Other Care) Height: 5 ft 7 in Weight:: 215 lb 8 oz BMI: 33.7 BMI (Report if calculated above): 33 Nutrition - 60-Day Assessment Weight Mgt (Other Care) Height: 5 ft 7 in Weight:: 215 lb 8 oz BMI: 33.7 BMI (Report if calculated above): 33 Core - 30-Day Assessment Hypertension [place] [employer] Hypertension Guidelines Reassessment Notes & Comments:: PT BP continues to trend down nearing optimal BP of <130/80, pt encouraged to follow low sodium diet and continue active lifestyle. Core - Final Assessment Visit Date of Eval: 02/27/25 Session #:: 33 Medication Compliance Preventative Medication(s):: Aspirin, RACHEL inhibitor, Clopidogrel/P2Y12 inhibit, Statin/lipid and Beta dewayne H/O mental health issues: depression, anxiety, or addiction?: No Doesn’t believe in the benefits of treatment?: No Believes medications are unnecessary or harmful?: No Has a concern about medication side effects?: No Expresses concern over the cost of medications?: No Outcomes/Goals: Verbalizes medications,desired effect & common side effects @ DC, Pt self-reports following medication regimen and Keeps card in wallet w/medications listed by DC Interventions/plans: Instruct on medication effects & side effects, Review medication list w/patient every two weeks and Instruct importance of taking meds as ordered & assist problem solving 30-day Reassessments:: Met Tobacco Use Tobacco Use: Non-smoker Hypertension Hypertension Diagnosis:: Hypertension ICD-10 I10 Resting Blood Pressure:: 132/72 [place] [employer] Hypertension Guidelines Peak Exercise Blood Pressure:: 188/98 Outcomes/Goals: Able to verbalize/achieve optimal blood pressure <130/80 and Incorporates diet changes & exercise for blood pressure control by DC Interventions/plan: Instruct on optimal blood pressure, hypertension & medications and Instruct on effects of sodium, alcohol, stress, exercise &hypertension 30 day Reassessments:: Progressing Reassessment Notes & Comments:: PT BP continues to trend down nearing optimal BP of <130/80, pt encouraged to follow low sodium diet and continue active lifestyle. Tobacco Cessation Referral Education Schedule Given:: Yes Core - 90 Day Assessment Hypertension [place] [employer] Hypertension Guidelines Reassessment Notes & Comments:: PT BP continues to trend down nearing optimal BP of <130/80, pt encouraged to follow low sodium diet and continue active lifestyle. Core - 60-Day Assessment Hypertension Resting Blood Pressure:: 132/72 [place] [employer] Hypertension Guidelines Psychosocial - 30-Day Assess Referral to Behavioral Health PS - Interventions: Yes: Attend Stress Management Classes Psychosocial - 60-Day Assess Referral to Behavioral Health PS - Interventions: Yes: Attend Stress Management Classes Psychosocial - 90-Day Assess Referral to Behavioral Health PS - Interventions: Yes: Attend Stress Management Classes Psychosocial - Final Assessmen VIsit Date of Eval: 02/27/25 Session #:: 33 History of previous Mental disease:: No History of Emotional Disorders: None Psychosocial Test Tool Used:: PHQ-9 Questionnaire phq-9 Severity See PHQ-9 Score: 1 Referral to Behavioral Health PS - Interventions: Yes: Attend Stress Management Classes Outcomes/Goals: See list Psychosocial Outcomes/Goals:: ID's personal stressors & 2 strategies to manage stress by discharge Intervention/Plan: See List Interventions/Plan:: Assess stressors,coping strategies & signs of derpression on admission, Instruct/assist pt to develop coping & personal stress Mgt strategies, Refer to Behavioral Health if appropriate, Refer to Physician if appropriate, Instruct patient to recognize signs & symptoms of depression and Instruct patient to recog 30-day Reassessments: 30 day Reassessments:: Met Reassessment Notes & Comments:: PT denies any psychosocial needs at this time. Nutrition - 90-Day Assessment Weight Mgt (Other Care) Height: 5 ft 7 in Weight:: 215 lb 8 oz BMI: 33.7 BMI (Report if calculated above): 33 Nutrition - Final Assessment Program Goals Patient has diagnosis of Hyperlipidemia (ICD E78)?: Yes Visit Date of Assessment:: 02/27/25 Session #:: 33 Cholesterol/Lipids (Other Core Measures) Triglycerides (mg/dL): 229 Total Cholesterol (mg/dL): 131 LDL Cholesterol (mg/dL): 44 HDL Cholesterol (mg/dL): 41 Lipid Medication: atorvastatin 80mg QHS Determine presence & major risk factors that modify LDL goal: Cigarette smoking, Hypertension or hypertensive medication, Low HDL cholesterol <40 mg/dL*, Family history of premature CHD in Male < 55 years: female <65 yearsFa and Age men > 45 years; women >/= 55 years Outcomes/Goals: Pt IDs own risk factors & lifestyle modifications by Session 10, Verbalizes symptoms of angina & response by session 3., Pt independently manages and Other Additional Outcomes/Goals: Intervention/Plan: Advocate for lipid panel cholesterol medication if applicable, Instruct on personal lipid levels & lipid goals/NCEP guidelines and Instruct on cholesterol 30-day Reassessments:: Met Diabetes (Other Core Measures) Diabetes Type: Diagnosis Type II ICD-10 E11 Fasting blood glucose:: 150 Hgb A1C (4.2 -6.3): 7.6 Insulin dependent injection/pump?: No Non-Insulin Dependent?: Yes Do you monitor your blood sugar at home?: No Intervention/Plan:: Instruct on (monitoring blood sugar) 30-day Reassessments:: Progressing Weight Mgt (Other Care) Height: 5 ft 7 in Weight:: 215 lb 8 oz BMI: 33.7 BMI (Report if calculated above): 33 Diagnosis Overweight/Obesity BMI> 30% ICD-10 E66: Yes Diagnosis High BMI/Morbid Obesity BMI> 35% ICD-10 Z68: No Outcomes/Goals: Pt sets, maintains & shows weight loss goal & trend during rehab Intervention/Plan: Instruct on ideal BMI & set weight loss goal w/patient, Assist pt to ID & incorporate diet changes for weight loss by S9, Refer to [facility] Weight Loss program as appropriate and Encourage goal of using 250-300dcal per session for weight loss 30 day Reassessments:: Progressing Reassessment Notes & Comments:: PT continues to show weight loss while track weight weekly in rehab. Healthy Eating Habits Will attend diet classes:: Yes Outcomes/Goals:: Consume diet rich in vegs,fruits,whole grain/high fiber,fish,lean meat and Limit sat/trans fats,cholesterol & added salts & sugars Intervention/Plan:: Assess current eating habits 30-day Reassessments:: Met Education Gave educational materials for:: Signs & symptoms of hypoglycemia, Signs & symptoms of hyperglycemia, Relate diabetes to coronary artery disease and Healthy eating
[2025-02-27 09:23] VITALS: BP 132/72
[2025-02-27 09:39] VITALS: BP 132/72; BMI 33.0; BMI 33.7
== END 2025-03-10 23:59 ==
LOC: CR 08:00
PROVIDERS: PCP Family Medicine; Referring Provider Internal Medicine Cardiovascular Disease; Visit Provider Internal Medicine Cardiovascular Disease
DX: I21.19 ST elevation (STEMI) myocardial infarction involving other coronary artery of inferior wall (principal); I21.11 ST elevation (STEMI) myocardial infarction involving right coronary artery; I51.89 Other ill-defined heart diseases; I25.10 Atherosclerotic heart disease of native coronary artery without angina pectoris; R07.9 Chest pain, unspecified
CPT/HCPCS: 93798